=== PATIENT | female | born 1960 | race Caucasian/White ===

== ENCOUNTER → 2019-05-31 10:25 | Outpatient (BNVA) | payer SELFPAY | PROVIDERS: Family Provider Nurse Practitioner; PCP Nurse Practitioner; Visit Provider Nurse Practitioner | DX: F33.1 Major depressive disorder, recurrent, moderate (principal) | CPT/HCPCS: 99213 ==

== ENCOUNTER 2019-06-24 10:22 | Outpatient (CLI) | payer SELFPAY ==
[2019-06-24 11:04] LABS: Estmated Average Glucose 117; Hemoglobin A1C 5.7 % (4.0-6.0)
[2019-06-24 11:11] LABS: Alanine Aminotransferase 26 U/L (0-33); Alkaline Phosphatase 56 IU/L (35-105); Anion Gap 15.2 (5-19); Aspartate Amino Transferase 24 U/L (0-32); Blood Urea Nitrogen 19 mg/dL (6-20); Calcium 9.7 mg/dL (8.5-10.5); Carbon Dioxide 22 mmol/L (22-29); Chloride 102 mmol/L (98-107); Chol HDL Ratio 2.48 mg/dL (0.0-4.40); Cholesterol 144 mg/dL (0-200); Globulin 3.3 g/dL (1.3-4.6); Glomerular Filtration Rate 86.6 mL/min (90-130); Glucose 82 mg/dL (65-115); HDL Cholesterol 58 mg/dL (60-100); LDL Cholesterol Calculated 74 mg/dL (50-129); LDL HDL Ratio 1.28 RATIO (0.00-3.22); Potassium 4.2 mmol/L (3.5-5.1); Sodium 135 mmol/L (136-145); Total Bilirubin 0.3 mg/dL (0.15-1.2); Total Protein 7.3 g/dL (6.6-8.7); Triglycerides 59 mg/dL (0-150)
== END 2019-06-24 10:23 | disposition home or self-care (01) ==
LOC: ONCMED 10:26
PROVIDERS: Family Provider Nurse Practitioner; PCP Nurse Practitioner; Visit Provider Nurse Practitioner Family
DX: E11.9 Type 2 diabetes mellitus without complications (principal)
CPT/HCPCS: 36415; 80053; 80061; 83036

== ENCOUNTER → 2019-07-07 09:41 | Outpatient (BNVA) | payer SELFPAY | PROVIDERS: Family Provider Nurse Practitioner; PCP Nurse Practitioner; Visit Provider Nurse Practitioner Family | DX: R59.0 Localized enlarged lymph nodes (principal); J30.89 Other allergic rhinitis | CPT/HCPCS: 83615; 85025 ==

== ENCOUNTER 2019-07-29 15:39 | Outpatient (CLI) | payer SELFPAY ==
--- NOTE | 2019-07-29 16:30 | USR_ITS ---
PROCEDURE INFORMATION: Exam: US Soft Tissue Head and Neck, Soft Tissue Exam date and time: 07/29/2019 4:16 PM Age: 58 years old Clinical indication: Other: Neck swelling; Patient HX: Right submandibular swelling. ; Additional info: Left submandibular node / soft tissue swelling TECHNIQUE: Imaging protocol: Real-time ultrasound scan of the head and neck with image documentation. Exam focused on the soft tissue in the region of clinical concern. COMPARISON: US thyroid [id number] 08/07/2015 3:23 PM FINDINGS: Submandibular/Parotid glands: The right submandibular gland appears inhomogenous and hyperechoic measuring 1.9 cm in approximate thickness. The left submandibular gland appears slightly smaller measuring approximately 1.5 cm in thickness. Doppler flow present within the right submandibular gland. The veneer gluer did not interrogate the left submandibular gland with Doppler. Lymph nodes: No lymphadenopathy. Soft tissues: Unremarkable. No fluid collections. US/US soft tissue head neck [id number] IMPRESSION: 1. Limited exam with only partial visualization of the submandibular glands. 2. The right submandibular gland appears slightly larger than the left. This could be infectious or inflammatory. 3. No lymphadenopathy organized fluid collection identified.
== END 2019-07-29 15:40 | disposition home or self-care (01) ==
LOC: US 15:40
PROVIDERS: Family Provider Nurse Practitioner; PCP Nurse Practitioner; Visit Provider Nurse Practitioner Family
DX: R59.0 Localized enlarged lymph nodes (principal)
CPT/HCPCS: 76536

== ENCOUNTER → 2019-08-01 12:41 | Outpatient (BNVA) | payer SELFPAY | PROVIDERS: Family Provider Nurse Practitioner; PCP Nurse Practitioner; Referring Provider Nurse Practitioner Family; Visit Provider Specialist | DX: G43.711 Chronic migraine without aura, intractable, with status migrainosus (principal); I10 Essential (primary) hypertension; E66.9 Obesity, unspecified; Z68.41 Body mass index [BMI] 40.0-44.9, adult | CPT/HCPCS: 99204 ==

== ENCOUNTER 2019-08-01 13:59 | Outpatient (CLI) | payer SELFPAY ==
[2019-08-01 14:52] LABS: C Reactive Protein 1.8 mg/L (0.0-4.9)
[2019-08-01 16:01] LABS: Erythrocyte Sedimentation Rate 25 mm/hr (0-15)
== END 2019-08-01 14:00 | disposition home or self-care (01) ==
LOC: LAB 14:02
PROVIDERS: Family Provider Nurse Practitioner; PCP Nurse Practitioner Family; Visit Provider Specialist
DX: I99.8 Other disorder of circulatory system (principal)
CPT/HCPCS: 36415; 85651; 86140

== ENCOUNTER 2019-08-10 10:30 | Outpatient (CLI) | payer SELFPAY ==
--- NOTE | 2019-08-10 10:30 | CT_ITS ---
WS: [id number] CT NECK WITH CONTRAST HISTORY: enlarged submandibular nodes TECHNIQUE: Contiguous 5 mm axial images are performed through the neck with intravenous contrast. Sag ittal and coronal reformats are also submitted. All CT scans at [facility] use at least o ne of these dose optimization techniques: automated exposure control; mA and/or kV adjustment per pat ient size (includes targeted exams where dose is matched to clinical indication); or iterative recons truction. CONTRAST: CONTRAST: Omnipaque 300; 95 mL IV. DLP: 2584.9 mGycm COMPARISON: Soft tissue neck 07/29/2019 Nasopharynx, oropharynx, hypopharynx and larynx are unremarkable. No soft tissue masses or abnormal e nhancement. Torus tubarius and fossa of Rosenmuller and parapharyngeal fat are normal. Small benign-appearing cervical chain lymph nodes. No enlarged lymph nodes or adenopathy. Prior gland is negative. Parotid glands are very slightly prominent bilaterally with no adjacent infl ammation. Submandibular glands are normal size. There are a few small adjacent lymph nodes which are normal. No osseous abnormalities. Visualized portions of the skull base demonstrate no abnormalities. Orbits and globes are within norm al limits. No soft tissue masses. Visualized paranasal sinuses and mastoid air cells are normal. Lung apices are clear. CT/CT neck w con* [id number] IMPRESSION: 1. No submandibular or parotid gland mass. 2. No inflammatory changes involving the salivary glands. 3. No adenopathy. Benign-appearing cervical chain lymph nodes.
[2019-08-10] MEDS: iohexol 300 mg/mL 100 mL Btl IV (11:19)
== END 2019-08-10 10:31 | disposition home or self-care (01) ==
LOC: RADWPI 10:34
PROVIDERS: Family Provider Nurse Practitioner; PCP Nurse Practitioner Family; Visit Provider Nurse Practitioner Family
DX: R59.0 Localized enlarged lymph nodes (principal)
CPT/HCPCS: 70491; Q9967

== ENCOUNTER 2019-08-12 08:39 | Outpatient (CLI) | payer SELFPAY ==
--- NOTE | 2019-08-12 | CT_ITS ---
WS: [id number] CT HEAD TECHNIQUE: Noncontrast CT of the head obtained from the skullbase to the vertex. CLINICAL INFORMATION: BASELINE FOR CTA - HX OF TIA COMPARISON: MRI January 27, 2019 DLP: 732.[address] scans at [facility] use at least one of these dose optimization techniques: automat ed exposure control; mA and/or kV adjustment per patient size (includes targeted exams where dose is matched to clinical indication); or iterative reconstruction. FINDINGS: No evidence of intracranial hemorrhage or mass effect. Ventricular system and basal cisterns are almonte nt. Mild small vessel changes with mild parenchymal volume loss. No extra-axial fluid collections. No evidence of mass or mass effect. Normal ag-white differentiation. Paranasal sinuses and mastoid air cells are well aerated. .Normal visualized soft tissues. CT/CT head wo con* [id number] IMPRESSION: 1. No evidence of intracranial hemorrhage or mass effect. 2. Mild small vessel changes with mild parenchymal volume loss. 3. No acute intracranial findings.
--- NOTE | 2019-08-12 08:30 | CT_ITS ---
WS: [id number] CTA HEAD AND NECK TECHNIQUE: Contrast enhanced CTA of the head and neck with coronal and sagittal reformatted images an d maximum intensity projection (MIP) images. NASCET criteria utilized. CLINICAL INFORMATION: TIA COMPARISON: None. DLP: 2205.[address] scans at [facility] use at least one of these dose optimization techniques: automat ed exposure control; mA and/or kV adjustment per patient size (includes targeted exams where dose is matched to clinical indication); or iterative reconstruction. FINDINGS: RIGHT: Right common carotid artery is patent. No significant right ICA stenosis. Minimal atheromatous plaque right carotid bulb. No significant right ICA stenosis. Right ICA is patent to the skull base. LEFT: Left common carotid artery is patent. No significant left ICA stenosis. Left ICA is patent to t he skull base. INTRACRANIAL CTA: Both vertebral arteries are patent. Basilar artery is patent. Persistent left FITTER ARMAMENT. Normal vascu larity to the FITTER ARMAMENT territory bilaterally. Both ICAs are patent at the skull base. Normal vascularity t o the DREW and MCA territories bilaterally. No evidence of high-grade proximal stenosis or aneurysm. CT/CT angio headneck* [id number] IMPRESSION: 1. No significant ICA stenosis bilaterally. Both ICAs are patent to the skull base. 2. No evidence of intracranial stenosis or aneurysm. 3. Persistent left FITTER ARMAMENT. 4. Paranasal sinuses and mastoid air cells are well aerated.
--- NOTE | 2019-08-12 09:30 | USCV_ITS ---
Anjelica Neely Age: 58 Gender: F : 1960 Exam Date: 08/12/2019 09:15 Ordering Phys: [place] Sellers MD Technologist: Carmen Ortiz [place] [facility] [place]IA BP: / HR: 57 Rhythm: Sinus Technical Quality: Suboptimal MEASUREMENTS (Male / Female) Normal Values 2D ECHO LV Diastolic Diameter PLAX 4.9 cm 4.2 - 5.9 / 3.9 - 5.3 cm LV Systolic Diameter PLAX 2.6 cm IVS Diastolic Thickness 0.7 cm 0.6 - 1.0 / 0.6 - 0.9 cm IVS Systolic Thickness 1.3 cm LVPW Diastolic Thickness 0.8 cm 0.6 - 1.0 / 0.6 - 0.9 cm LVPW Systolic Thickness 1.4 cm LVOT Diameter 2.0 cm LV Ejection Fraction 2D Teich 77.6 % LV Ejection Fraction MOD 2C 58.8 % LV Ejection Fraction 2C AL 59.3 % LA Diameter 3.7 cm LA Width 3.3 cm LA Height 4.9 cm RA Width 2.9 cm RA Height 4.3 cm Aorta at Sinotubular Diameter 2.8 cm M-MODE LV Diastolic Diameter MM 5.3 cm 4.2 - 5.9 / 3.9 - 5.3 cm LV Systolic Diameter MM 3.0 cm LV Ejection Fraction MM Teich 73.3 % IVS Diastolic Thickness MM 0.6 cm 0.6 - 1.0 / 0.6 - 0.9 cm IVS Systolic Thickness MM 1.3 cm LVPW Diastolic Thickness MM 0.8 cm 0.6 - 1.0 / 0.6 - 0.9 cm LVPW Systolic Thickness MM 1.3 cm Aortic Annulus Diameter 2.2 cm LA Ao Ratio MM 1.7 MV E Point Septal Separation 0.1 cm DOPPLER AV Peak Velocity 139.0 cm/s LVOT Peak Velocity 90.0 cm/s AV Area Cont Eq vti 2.0 cm squared AV Area Cont Eq pk 2.1 cm squared MV Area PHT 4.0 cm squared Mitral E to A Ratio 0.9 MV E' Velocity 9.0 cm/s Mitral E to MV E' Ratio 9.0 Mitral E to LV E' Lateral Ratio 10.3 Mitral E to LV E' Septal Ratio 8.1 TV Peak E Velocity 53.0 cm/s Right Atrial Pressure 3.0 mmHg PV Peak Velocity 90.0 cm/s RV Acceleration Time 0.1 s RV Ejection Time 0.4 s RV AcT/ET 0.4 FINDINGS Left Ventricle Normal left ventricular size, systolic function and wall thickness, with no regional wall motion abnormalities. Grade I/IV diastolic dysfunction (abnormal relaxation filling pattern), normal to mildly elevated filling pressures. Left ventricular ejection fraction is estimated at 60 %. Right Ventricle Normal right ventricular size and systolic function. Normal right ventricular systolic pressure. Right Atrium The right atrium is normal in size. Left Atrium The left atrium is normal in size. Mitral Valve Structurally normal mitral valve. Mild mitral valve regurgitation. Aortic Valve Structurally normal aortic valve without significant sclerosis or stenosis. There is no aortic regurgitation. Tricuspid Valve Structurally normal tricuspid valve. Trace tricuspid valve regurgitation. Pulmonic Valve Pulmonic valve not well visualized. Pericardium Normal pericardium without effusion. Aorta Normal ascending aorta dimension. CONCLUSIONS Normal left ventricular size, systolic function and wall thickness, with no regional wall motion abnormalities. Grade I/IV diastolic dysfunction (abnormal relaxation filling pattern), normal to mildly elevated filling pressures. Left ventricular ejection fraction is estimated at 60 %. Structurally normal mitral valve. Mild mitral valve regurgitation. There are no prior echocardiogram studies to compare. Dr. Ricardo Jessica MD (Electronically Signed) Final Date: 12 August 2019 11:49 S
[2019-08-12] MEDS: iohexol 350 mg/mL 100 mL Btl IV (10:12)
== END 2019-08-12 08:40 | disposition home or self-care (01) ==
LOC: CT 08:39
PROVIDERS: Family Provider Nurse Practitioner; PCP Nurse Practitioner Family; Visit Provider Specialist
DX: I99.8 Other disorder of circulatory system (principal); G45.8 Other transient cerebral ischemic attacks and related syndromes; I34.0 Nonrheumatic mitral (valve) insufficiency
CPT/HCPCS: 70450; 70496; 70498; 93306

== ENCOUNTER → 2019-09-30 10:24 | Outpatient (BNVA) | payer SELFPAY | PROVIDERS: Family Provider Nurse Practitioner; PCP Nurse Practitioner Family; Visit Provider Nurse Practitioner | DX: E11.9 Type 2 diabetes mellitus without complications (principal); F33.1 Major depressive disorder, recurrent, moderate; M19.90 Unspecified osteoarthritis, unspecified site | CPT/HCPCS: 80053; 80061; 81003; 82044; 82607; 83036; 83735; 84443 ==

== ENCOUNTER → 2019-12-22 10:20 | Outpatient (BNVA) | payer SELFPAY | PROVIDERS: Family Provider Nurse Practitioner; PCP Nurse Practitioner Family; Visit Provider Nurse Practitioner | DX: I10 Essential (primary) hypertension (principal) | CPT/HCPCS: 80053 ==

== ENCOUNTER 2019-12-28 09:44 | Outpatient (CLI) | payer SELFPAY ==
--- NOTE | 2019-12-28 09:30 | XRR_ITS ---
PROCEDURE INFORMATION: Exam: XR Abdomen, 1 View Exam date and time: 12/28/2019 9:50 AM Age: 59 years old Clinical indication: Stone TECHNIQUE: Imaging protocol: XR of the abdomen. Views: Frontal supine view of the abdomen. 1 View. COMPARISON: CR XR KUB [id number] 12/30/2018 9:36 AM FINDINGS: Gastrointestinal tract: No dilated gas-filled loops of bowel. Moderate amount of stool throughout the colon. Organs: No radiopaque renal or ureteral calculi identified. Prior cholecystectomy. Vasculature: Multiple phleboliths in the pelvis. Bones/joints: Multilevel facet arthropathy in the lower lumbar spine. XR/XR KUB [id number] IMPRESSION: No radiopaque renal or ureteral calculus identified.
== END 2019-12-28 09:45 | disposition home or self-care (01) ==
LOC: RAD 09:48
PROVIDERS: PCP Nurse Practitioner Family; Visit Provider Urology
DX: N20.0 Calculus of kidney (principal)
CPT/HCPCS: 74018; 81001

== ENCOUNTER 2020-01-18 17:55 | Emergency (ER) | payer OTHER, SELFPAY ==
[2020-01-18 18:04] VITALS: BP 144/75; PULSE 98; RESP 18; TEMP 38.3; O2SAT 95; BMI 39.6
--- NOTE | 2020-01-18 18:27 | XRR_ITS ---
PROCEDURE INFORMATION: Exam: XR Chest, 1 View Exam date and time: 01/18/2020 7:01 PM Age: 59 years old Clinical indication: Cough and hyperventilation and shortness of breath; Prior surgery; Surgery type: Lumpectomy; Patient HX: SOB, cough, cp x 3 days; Additional info: Fever TECHNIQUE: Imaging protocol: XR of the chest Views: 1 view. COMPARISON: CR Chest 1 [place] [id number] 07/31/2017 1:00 PM FINDINGS: Tubes, catheters and devices: Surgical suture anchor right shoulder. Lungs: Minor lingular scarring or atelectasis. Pleural space: Unremarkable. No pleural effusion. No pneumothorax. Heart/Mediastinum: Stable heart size. Bones/joints: Degenerative change of the spine. Intraperitoneal space: Cholecystectomy clips right upper quadrant. XR/XR chest 1V portable [id number] IMPRESSION: Minor lingular scarring or atelectasis.
[2020-01-18] MEDS: acetaminophen 500 mg Tablet 1000 MG PO (18:41)
[2020-01-18 19:31] LABS: Basophils # 0.1 10^3/uL (0.0-0.1); Basophils % 0.4 %; Hematocrit 38.2 % (37.0-47.0); Hemoglobin 12.3 g/dL (11.5-15.3); Lymphocytes # 1.3 10^3/uL (0.8-4.8); Lymphocytes % 8.1 %; Mean Corpuscular HGB Conc 32.2 g/dL (30.0-36.0); Mean Corpuscular Hemoglobin 29.4 pg (28.0-34.0); Mean Corpuscular Volume 91.4 fL (81-99); Mean Platelet Volume 12.9 fL (7.4-10.4); Monocytes # 1.2 10^3/uL (0.2-0.9); Monocytes % 7.1 %; Neutrophils # 13.74 10^3/uL (1.8-7.7); Neutrophils % 83.7 %; Nucleated Red Blood Cells % 0 %; Platelet Count 228 10^3/cmm (130-400); Red Blood Count 4.18 10^6/uL (4.1-5.3); White Blood Count 16.4 10^3/uL (4.0-10.0)
[2020-01-18 19:44] LABS: Alanine Aminotransferase 17 U/L (0-33); Albumin Level 3.9 g/dL (3.5-5.2); Alkaline Phosphatase 68 IU/L (35-105); Anion Gap 16.5 (5-19); Aspartate Amino Transferase 15 U/L (0-32); Blood Urea Nitrogen 16 mg/dL (6-20); Calcium 8.9 mg/dL (8.5-10.5); Carbon Dioxide 21 mmol/L (22-29); Chloride 100 mmol/L (98-107); Globulin 3.1 g/dL (1.3-4.6); Glomerular Filtration Rate 64.5 mL/min (90-130); Glucose 198 mg/dL (65-115); Osmolality Calculated 285 mOsm/kg (285-295); Potassium 3.5 mmol/L (3.5-5.1); Sodium 134 mmol/L (136-145); Total Bilirubin 0.3 mg/dL (0.15-1.2)
[2020-01-18 19:46] VITALS: BP 135/68; PULSE 88; RESP 20; TEMP 39.5; O2SAT 94
[2020-01-18 20:04] LABS: Rapid Strep A Test Positive (Negative)
[2020-01-18] MEDS: ketorolac 30 mg/mL INJ 15 MG IVP (20:32)
--- NOTE | 2020-01-18 20:32 | CTR_ITS ---
PROCEDURE INFORMATION: Exam: CT Neck With Contrast Exam date and time: 01/18/2020 8:55 PM Age: 59 years old Clinical indication: Throat pain; Additional info: Eval for pharyngeal abscess TECHNIQUE: Imaging protocol: Computed tomography images of the neck with intravenous contrast. Radiation optimization: All CT scans at this facility use at least one of these dose optimization techniques: automated exposure control; mA and/or kV adjustment per patient size (includes targeted exams where dose is matched to clinical indication); or iterative reconstruction. Contrast material: OMNI 300; Contrast volume: 95 ml; Contrast route: INTRAVENOUS (IV); COMPARISON: CT neck w con* [id number] 08/10/2019 11:07 AM RADIATION DOSE METRICS: Total DLP (mGy-cm): 777.95 FINDINGS: Nasopharynx: Unremarkable. Oropharynx: Unremarkable. No significant tonsillar enlargement. Hypopharynx: Unremarkable. Larynx: Unremarkable. Normal epiglottis. Retropharyngeal space: Unremarkable. Submandibular/Parotid glands: Normal. Glands are normal in size. Thyroid: Normal. No enlarged or calcified nodules. Lymph nodes: Enlarged edematous tonsils bilaterally with scattered prominent lymph nodes throughout the neck suggestive of an infectious process without abscess. Trachea: Visualized trachea is unremarkable. Lungs: Unremarkable as visualized. Bones/joints: Unremarkable. No acute fracture. Soft tissues: Unremarkable. No significant soft tissue swelling. CT/CT neck w con* [id number] IMPRESSION: Enlarged edematous tonsils bilaterally with scattered prominent lymph nodes throughout the neck suggestive of an infectious process without abscess. Radiation Dose CTDIVOL = (mGy): DLP = 777.95 (mGy-cm)
[2020-01-18] MEDS: piperacillin-tazobactam 3.375 GM in sodium chloride 0.9% (plus) 50 ML IV (20:33)
[2020-01-18 20:34] VITALS: BP 138/69; PULSE 80; RESP 18; O2SAT 95
--- NOTE | 2020-01-18 20:51 | W.ED.FEVER ---
HPI - Fever General: Chief Complaint: Fever Stated Complaint: FEVER;BODY ACHES Time Seen by Provider: 01/18/20 18:19 History of Present Illness: HPI Narrative: This patient is a 59-year-old female who presents today with fever and sore throat. She has had some cough and runny nose as well. This started Thursday evening and was severe by yesterday morning. She was seen at the clinic and had a COVID test done there. She said they told her that her white blood cell count was high and they sent her to the ER. She is having discomfort with swallowing but not difficulty. She feels pretty awful in general. She has no known exposures to COVID. MD elicited complaint: fever Pertinent past history: diabetes Onset (ago): day(s) (-05/05) Exacerbating factors: swallowing Relieving factors: nothing Associated symptoms: Reports chills, cough, diarrhea, nasal congestion, rhinorrhea and sore throat; Deny flank pain, chest pain or headache(s) Treatments prior to arrival fever: acetaminophen (None today) Review of Systems General: Reports: 10 or more systems reviewed and unremarkable except in HPI and below Const: Reports: fever(s), chills, body aches, fatigue and malaise Eyes: Denies: change in vision ENMT: Reports: throat pain, odynophagia, hoarseness and nasal congestion Card: Denies: chest pain or swelling of feet/ankles Resp: Reports: non-productive cough; Denies: dyspnea or productive cough GI: Reports: diarrhea : Denies: flank pain or difficulty voiding Musc: Denies: neck pain or back pain Skin/Breast: Denies: rash Neuro: Denies: headache(s), numbness in extremities or weakness in extremities Benjy/Lymph: Denies: easy bruising or easy bleeding PFSH ED PFSH: Medical History Atrophy of vulva GERD (gastroesophageal reflux disease) History of kidney stones Hyperlipidemia Hypertension Insomnia Major depressive disorder, recurrent, moderate Osteoarthritis Renal calculi History of a large stone requiring ESWL but with complete resolution eventually. Encourage dietary modification for stone risk reduction. Surgical History H/O lateral meniscus repair of right knee H/O repair of left rotator cuff H/O repair of right rotator cuff History of cholecystectomy History of left breast biopsy History of lithotripsy History of partial hysterectomy without BSO History of tubal ligation Family History Father Heart disease Mother Osteoarthritis Other CAD (coronary artery disease) Cancer Diabetes Hypertension Osteoporosis Rheumatoid arthritis Denies family history of Stroke Social History Smoking and tobacco status: never smoked Second hand smoke exposure: No Smoking risk assessment/counseling performed?: No Alcohol intake: never Desire information about alcohol rehabilitation?: No Counseling given: No Desire information about substance/drug rehabilitation?: No Counseling given: No Adopted: No Caregiver/support person: No Lives independently: Yes Household members: spouse Marital status: service: No Current occupational status: disabled History of recent travel: No Current gender identity: Female Physical Exam Const: COMMON NORMALS: patient oriented x3, no limitations and alert GENERAL APPEARANCE: cooperative and ill appearing HENMT: HEAD & SCALP: normal to inspection FACE & SINUS: normal facial exam THROAT: posterior oropharynx abnormal edema, erythema and exudates Eye: GENERAL EYE: appearance normal, both eyes and all related structures Neck/C-Spine: COMMON NORMALS: supple, no meningeal signs and no JVD Chest: COMMONS NORMALS: normal inspection of the chest Resp: COMMON NORMALS: normal respiratory effort, No use of accessory muscles and clear to auscultation bilaterally AUSCULTATION: clear to auscultation bilaterally Cardio: COMMON NORMALS: no JVD, regular rate, regular rhythm and No murmurs present (Cardio) RATE: regular rate RHYTHM: regular rhythm GI: COMMON NORMALS: Normal to inspection, nondistended, normoactive bowel sounds present, Soft to palpation and non-tender INSPECTION: Yes normal to inspection AUSCULTATION: Yes normoactive bowel sounds PALPATION: Yes Soft to palpation Back/Pelvis: COMMON NORMALS: thoracic and lumbar spine normal to inspection Extremity: COMMON NORMALS: normal to inspection Neuro: COMMON NORMALS: patient oriented x3, moves all extremities, no focal motor deficits and no sensory deficits noted SENSORIUM/ORIENTATION: Yes alert MENINGEAL SIGNS: Yes no meningeal signs Psych: COMMON NORMALS: mental status grossly normal, cooperative and normal affect Skin: COMMON NORMALS: no rashes or lesions noted and turgor normal GENERAL SKIN EXAM: no rashes or lesions noted and turgor normal Course ED course: Patient's rapid strep was positive. Her throat certainly looks like the source of her fever on a physical exam. Because of her fever and high white count I thought it would be prudent to do a CT of her neck to make sure there was no abscess. CT did show inflammation but no abscess. Patient was given IV antibiotics, IV fluid, IV Toradol. She was discharged home with pain medication and Augmentin. She will follow-up with her primary care doctor and return to the ED if worse anyway. Vital Signs: Vital signs: Vital Signs Temperature 103.1 F H 01/18/20 19:46 Pulse Rate 69 01/18/20 22:06 Respiratory Rate 16 01/18/20 22:06 Blood Pressure 127/68 01/18/20 22:06 Pulse Oximetry 94 01/18/20 22:06 MDM - Fever Lab Data: Labs: Lab Results 01/18/20 01/18/20 01/18/20 Range/Units 18:49 18:49 18:49 WBC 16.4 H (4.0-10.0) 10^3/ uL RBC 4.18 (4.1-5.3) 10^6/u L Hgb 12.3 (11.5-15.3) g/dL Hct 38.2 (37.0-47.0) % MCV 91.4 (81-99) fL MCH 29.4 (28.0-34.0) pg MCHC 32.2 (30.0-36.0) g/dL RDW 13.0 (12.1-15.1) % Plt Count 228 (130-400) 10^3/c mm MPV 12.9 H (7.4-10.4) fL Neut % (Auto) 83.7 % Lymph % (Auto) 8.1 % [place] % (Auto) 7.1 % Eos % (Auto) 0.0 % Baso % (Auto) 0.4 % Neut # (Auto) 13.74 H (1.8-7.7) 10^3/u L Lymph # (Auto) 1.3 (0.8-4.8) 10^3/u L Bladen # (Auto) 1.2 H (0.2-0.9) 10^3/u L Eos # (Auto) 0.0 (0.0-0.8) 10^3/u L Baso # (Auto) 0.1 (0.0-0.1) 10^3/u L Nucleated RBC % (a uto) 0 % Nucleated RBCs # 0.0 /100WBC Sodium 134 L (136-145) mmol/L Potassium 3.5 (3.5-5.1) mmol/L Chloride 100 (98-107) mmol/L Carbon Dioxide 21 L (22-29) mmol/L Anion Gap 16.5 (5-19) BUN 16 (6-20) mg/dL Creatinine 0.9 (0.5-0.9) mg/dL GFR Calculation 64.5 L (90-130) mL/min Glucose 198 H (65-115) mg/dL Calculated Osmolal ity 285 (285-295) mOsm/k g Calcium 8.9 (8.5-10.5) mg/dL Total Bilirubin 0.3 (0.15-1.2) mg/dL AST 15 (0-32) U/L ALT 17 (0-33) U/L Alkaline Phosphata se 68 (35-105) IU/L Total Protein 7.0 (6.6-8.7) g/dL Albumin 3.9 (3.5-5.2) g/dL Globulin 3.1 (1.3-4.6) g/dL Group A Strep Rapi d Positive H (Negative) Discharge Plan Discharge Patient Disposition: Home Clinical Impression: Strep pharyngitis Condition: Stable Prescriptions: New Augmentin 875-125 mg tablet 1 tab PO BID Qty: 20 RF: 0 hydrocodone-acetaminophen 7.5-325 mg/15 mL solution 15 ml PO Q6H PRN (Reason: pain) Qty: 120 RF: 0 No Action azelastine 137 mcg (0.1 %) aerosol,spray 2 spray INTRANASAL BID RF: 0 cetirizine 10 mg tablet 10 mg PO DAILY RF: 0 trazodone 50 mg tablet 50 mg PO .at bedtime Qty: 30 RF: 3 paroxetine HCl 20 mg tablet 20 mg PO .8PM Qty: 30 RF: 3 (DME) pen needle, diabetic 33 gauge x 5/32 needle See Rx Instructions .ROUTE .MEDSUPPLY Qty: 100 RF: 5 atorvastatin [Lipitor] 20 mg tablet 20 mg PO DAILY Qty: 30 RF: 2 diltiazem HCl 60 mg tablet 60 mg PO .every 12 hours Qty: 60 RF: 2 [place] 5 mcg/dose (250 mcg/mL) 1.2 mL pen injector 5 mcg SUBCUT BID Qty: 1.2 RF: 2 lisinopril 20 mg tablet 20 mg PO DAILY Qty: 30 RF: 2 meloxicam 15 mg tablet 15 mg PO DAILY Qty: 30 RF: 2 sucralfate [Carafate] 1 gram tablet 1 gm PO BID PRN (Reason: acid reflux) Qty: 60 RF: 2 topiramate [Topamax] 100 mg tablet 100 mg PO Q12H Qty: 60 RF: 2 montelukast [Singulair] 10 mg tablet 10 mg PO DAILY Qty: 30 RF: 2 albuterol sulfate [ProAir HFA] 90 mcg/actuation HFA aerosol inhaler 2 puff INHALATION Q4H PRN (Reason: shortness of breath or wheezing) 30 Days Qty: 6.7 RF: 2 aspirin 81 mg tablet,delayed release (DR/EC) 81 mg PO DAILY RF: 0 Vitamin B-12 1,000 mcg Tablet 1,000 mcg PO DAILY RF: 0 fluticasone propionate 50 mcg/actuation [place],Suspension See Rx Instructions .ROUTE .COMPLEX RF: 0 Multiple Vitamin, Womens Tablet 1 tab PO DAILY RF: 0 Vitamin D3 25 mcg (1,000 unit) Tablet 25 mcg PO DAILY RF: 0 levocetirizine 5 mg Tablet See Rx Instructions .ROUTE .COMPLEX RF: 0 Fish Oil 1,000 mg (120 mg-180 mg) Capsule 1 cap PO DAILY RF: 0 epinephrine See Rx Instructions .ROUTE .COMPLEX RF: 0 vitamin E 1 cap PO DAILY RF: 0 Discharge Orders: Discharge Order (Routine); Ordered 01/18/20 Ordered By: Maddie Bhatti Referrals: Mary Silveira, HIGHBALLER-C [Primary Care Provider] - Discharge Diet: Usual diet Discharge Activity: Resume usual activity Patient Instructions: Strep Throat (ED) Activity Restrictions/Additional Instructions: Make sure to drink plenty of fluids. You may use ibuprofen or acetaminophen for pain. You may also use the hydrocodone elixir that was prescribed today. Fill the antibiotic that was prescribed here from the ED and take that until gone. Return to the ER or see your doctor immediately for any worsening of your condition. Discharge Date/Time: 01/18/20 22:18 Coding Level of Care Code ED Senior Administrative Associate for Ashlee Fwbela Exam Comprehensive
[2020-01-18 22:03] VITALS: RESP 18
[2020-01-18] MEDS: ondansetron 2 mg/ML SDV 2 mL 4 MG IVP (22:03)
[2020-01-18] MEDS: morphine 4 mg/mL SDV 1 mL IVP (22:03)
[2020-01-18 22:06] VITALS: BP 127/68; PULSE 69; RESP 16; O2SAT 94
== END 2020-01-18 22:18 | disposition home or self-care (01) ==
PROVIDERS: Emergency Provider Emergency Medicine; PCP Nurse Practitioner
DX: J02.0 Streptococcal pharyngitis (principal); U07.1 COVID-19; Z79.82 Long term (current) use of aspirin; E78.5 Hyperlipidemia, unspecified; I10 Essential (primary) hypertension
CPT/HCPCS: 12345; 36415; 70491; 71045; 80053; 85025; 87635; 87880; 96365; 96375; 99282; 99284; J1885; J2270; J2405; J2543; Q9967

== ENCOUNTER → 2020-01-26 09:17 | Outpatient (BNVA) | payer SELFPAY | PROVIDERS: PCP Nurse Practitioner; Visit Provider Nurse Practitioner | DX: J02.0 Streptococcal pharyngitis (principal) | CPT/HCPCS: 85025 ==

== ENCOUNTER → 2020-02-02 11:47 | Outpatient (BNVA) | payer SELFPAY | PROVIDERS: PCP Nurse Practitioner; Visit Provider Nurse Practitioner | DX: J02.0 Streptococcal pharyngitis (principal) | CPT/HCPCS: 85025 ==

== ENCOUNTER 2020-02-15 13:44 | Outpatient (CLI) | payer SELFPAY ==
--- NOTE | 2020-02-15 14:30 | MM_ITS ---
WS: [id number] SCREENING DIGITAL MAMMOGRAM WITH CAD HISTORY: Screening exam. COMPARISON: 07/08/2018 and 02/10/2018 Bilateral CC and MLO views submitted. Computer aided detection analyzed. Breast composition: There are scattered areas of fibroglandular density. No suspicious masses, microc alcifications or architectural distortion. MM/[place] [id number] IMPRESSION: BI-RADS: 1-Negative FOLLOW UP: 1 Year Follow-up
== END 2020-02-15 13:45 | disposition home or self-care (01) ==
LOC: RADSHAW 13:49
PROVIDERS: PCP Nurse Practitioner; Visit Provider Nurse Practitioner
DX: Z12.31 Encounter for screening mammogram for malignant neoplasm of breast (principal)
CPT/HCPCS: 77067

== ENCOUNTER 2020-03-13 13:10 | Emergency (ER) | payer SELFPAY ==
[2020-03-13 13:17] VITALS: BP 141/82; PULSE 100; RESP 20; TEMP 37.9; O2SAT 100; BMI 38.9
--- NOTE | 2020-03-13 14:05 | ECG_ITS ---
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 Measurements Intervals [place] Rate: 103 P: 34 HI: 173 QRS: 64 QRSD: 96 T: -3 QT: 309 QTc: 405 Interpretive Statements SINUS TACHYCARDIA WITH OCCASIONAL VENTRICULAR PREMATURE COMPLEXES NONSPECIFIC ST & T-WAVE ABNORMALITY Compared to ECG 01/14/2019 17:41:03 Ventricular premature complex(es) now present T-wave abnormality now present Sinus rhythm no longer present Myocardial infarct finding no longer present Electronically Signed On 03-13-2020 19:19:51 SPEECH LANGUAGE PATHOLOGY ASSISTANT by Jose Guillen M.D. [email or web address]
--- NOTE | 2020-03-13 14:06 | ED_ITS ---
Documented by User: Dick Carpio DO 03/16/20 06:16 HPI - Chest Pain General: Chief Complaint: Chest Pain Stated Complaint: CP Time Seen by Provider: 03/13/20 14:00 History of Present Illness: HPI narrative: 59-year-old female presents with a complaint of chest pain and shortness of breath cough and fever. She began getting cough and fever along with shortness of breath last night. She had a telehealth visit today with her primary care provider and was instructed to go to the emergency room. MD complaint: chest pain Associated symptoms: Deny abdominal pain, dyspnea, fever(s), nausea or vomiting Review of Systems Const: Denies: fever(s), chills, body aches, change in appetite, fatigue or malaise ENMT: Denies: throat pain, ear or mastoid pain, nasal discharge or nasal congestion Card: Denies: chest pain, edema, dyspnea on exertion or orthopnea Resp: Denies: dyspnea, productive cough or non-productive cough GI: Denies: abdominal pain, nausea, vomiting, hematemesis, coffee ground emesis, diarrhea, constipation, bloating, hematochezia or melena : Denies: flank pain, difficulty voiding, dysuria, urinary frequency or urinary urgency Skin/Breast: Denies: rash or pruritus PFSH ED PFSH: Medical History (Updated 03/13/20 @ 19:28 by Shantell Packer) Atrophy of vulva GERD (gastroesophageal reflux disease) History of kidney stones Hyperlipidemia Hypertension Insomnia Major depressive disorder, recurrent, moderate Osteoarthritis Renal calculi History of a large stone requiring ESWL but with complete resolution eventually. Encourage dietary modification for stone risk reduction. Surgical History H/O lateral meniscus repair of right knee H/O repair of left rotator cuff H/O repair of right rotator cuff History of cholecystectomy History of left breast biopsy History of lithotripsy History of partial hysterectomy without BSO History of tubal ligation Family History Father Heart disease Mother Osteoarthritis Other CAD (coronary artery disease) Cancer Diabetes Hypertension Osteoporosis Rheumatoid arthritis Denies family history of Stroke Social History Smoking and tobacco status: never smoked Second hand smoke exposure: No Smoking risk assessment/counseling performed?: No Alcohol intake: never Desire information about alcohol rehabilitation?: No Counseling given: No Desire information about substance/drug rehabilitation?: No Counseling given: No Adopted: No Caregiver/support person: No Lives independently: Yes Household members: spouse Marital status: service: No Current occupational status: disabled History of recent travel: No Current gender identity: Female Physical Exam Const: COMMON NORMALS: no acute distress GENERAL APPEARANCE: cooperative and comfortable ORIENTATION/CONSCIOUSNESS: Yes awake, Yes oriented to person, Yes oriented to place and Yes oriented to time HENMT: COMMON NORMALS: normocephalic, atraumatic and hearing grossly normal bilaterally HEAD & SCALP: normocephalic and atraumatic THROAT: posterior oropharynx abnormal erythema Eye: COMMON NORMALS: Equal, round and reactive pupils present, EOMs intact bilaterally, conjunctivae normal and no scleral icterus CONJUNCTIVA: Yes conjunctivae normal PUPIL: Yes Equal, round and reactive pupils present Neck/C-Spine: COMMON NORMALS: full ROM, no lymphadenopathy, supple and no JVD Lymph: LYMPHATIC: no lymphadenopathy noted and no lymphedema noted OTHER: No submandibular lymphadenopathy Resp: COMMON NORMALS: normal respiratory effort, No retractions, No use of acc essory muscles and clear to auscultation bilaterally AUSCULTATION: clear to auscultation bilaterally Cardio: COMMON NORMALS: no JVD, regular rate, regular rhythm and No murmurs present (Cardio) RATE: regular rate RHYTHM: regular rhythm GI: COMMON NORMALS: Soft to palpation and No hepatosplenomegaly present AUSCULTATION: Yes normoactive bowel sounds PALPATION: Yes Soft to palpation, No Tenderness to palpation present (GI), No Guarding due to palpation present (GI) and Yes No hepatosplenomegaly present Extremity: COMMON NORMALS: normal to inspection, capillary refill normal, no clubbing, cyanosis or edema, no calf tenderness and no pedal edema Neuro: SENSORIUM/ORIENTATION: Yes oriented to person, Yes oriented to place and Yes oriented to time Skin: COMMON NORMALS: no rashes or lesions noted GENERAL SKIN EXAM: no rashes or lesions noted Course Vital Signs: Vital signs: Vital Signs Temperature 100.2 F H 03/13/20 13:17 Pulse Rate 99 03/13/20 19:35 Respiratory Rate 20 H 03/13/20 13:17 Blood Pressure 141/82 03/13/20 13:17 Pulse Oximetry 96 03/13/20 19:35 MDM - Chest Pain MDM Narrative: Medical decision making narrative: Care turned over to Dr. Sherwood at change of shift Lab Data: Labs: Lab Results 03/13/20 03/13/20 03/13/20 Range/Units 15:40 15:40 15:40 WBC 15.9 H (4.0-10.0) 10^3/ uL RBC 4.17 (4.1-5.3) 10^6/u L Hgb 12.1 (11.5-15.3) g/dL Hct 38.0 (37.0-47.0) % MCV 91.1 (81-99) fL MCH 29.0 (28.0-34.0) pg MCHC 31.8 (30.0-36.0) g/dL RDW 13.2 (12.1-15.1) % Plt Count 308 (130-400) 10^3/c mm MPV 12.3 H (7.4-10.4) fL Neut % (Auto) 80.9 % Lymph % (Auto) 8.6 % [place] % (Auto) 9.2 % Eos % (Auto) 0.3 % Baso % (Auto) 0.6 % Neut # (Auto) 12.86 H (1.8-7.7) 10^3/u L Lymph # (Auto) 1.4 (0.8-4.8) 10^3/u L [place] # (Auto) 1.5 H (0.2-0.9) 10^3/u L Eos # (Auto) 0.1 (0.0-0.8) 10^3/u L Baso # (Auto) 0.1 (0.0-0.1) 10^3/u L Nucleated RBC % (a uto) 0 % Nucleated RBCs # 0.0 /100WBC Fibrinogen (174-498) mg/dL D-Dimer (0-0.59) ug/mIFE U Sodium 140 (136-145) mmol/L Potassium 3.5 (3.5-5.1) mmol/L Chloride 105 (98-107) mmol/L Carbon Dioxide 23 (22-29) mmol/L Anion Gap 15.5 (5-19) BUN 11 (6-20) mg/dL Creatinine 0.8 (0.5-0.9) mg/dL GFR Calculation 73.9 L (90-130) mL/min Glucose 105 (65-115) mg/dL Calculated Osmolal ity 290 (285-295) mOsm/k g Lactic Acid Calcium 9.1 (8.5-10.5) mg/dL Ferritin 100 (15-150) ng/mL Total Bilirubin 0.2 (0.15-1.2) mg/dL AST 19 (0-32) U/L ALT 18 (0-33) U/L Alkaline Phosphata se 87 (35-105) IU/L Lactate Dehydrogen ase 195 (135-214) U/L Troponin T Baselin e 6 (0-10) ng/L Troponin T 120 Min [place] (0-10) ng/L Delta Troponin T (0-10) ABS# C-Reactive Protein 23.1 H (0.0-4.9) mg/L Total Protein 7.3 (6.6-8.7) g/dL Albumin 4.0 (3.5-5.2) g/dL Globulin 3.3 (1.3-4.6) g/dL Influenza Type A A g (Negative) Influenza Type B A g (Negative) SARS-CoV-2 Ag (Rap id) (Negative) Group A Strep Rapi d (Negative) 03/13/20 03/13/20 03/13/20 Range/Units 15:40 15:42 15:46 WBC (4.0-10.0) 10^3/ uL RBC (4.1-5.3) 10^6/u L Hgb (11.5-15.3) g/dL Hct (37.0-47.0) % MCV (81-99) fL MCH (28.0-34.0) pg MCHC (30.0-36.0) g/dL RDW (12.1-15.1) % Plt Count (130-400) 10^3/c mm MPV (7.4-10.4) fL Neut % (Auto) % Lymph % (Auto) % [place] % (Auto) % Eos % (Auto) % Baso % (Auto) % Neut # (Auto) (1.8-7.7) 10^3/u L Lymph # (Auto) (0.8-4.8) 10^3/u L [place] # (Auto) (0.2-0.9) 10^3/u L Eos # (Auto) (0.0-0.8) 10^3/u L Baso # (Auto) (0.0-0.1) 10^3/u L Nucleated RBC % (a uto) % Nucleated RBCs # /100WBC Fibrinogen 415 (174-498) mg/dL D-Dimer 1.52 H (0-0.59) ug/mIFE U Sodium (136-145) mmol/L Potassium (3.5-5.1) mmol/L Chloride (98-107) mmol/L Carbon Dioxide (22-29) mmol/L Anion Gap (5-19) BUN (6-20) mg/dL Creatinine (0.5-0.9) mg/dL GFR Calculation (90-130) mL/min Glucose (65-115) mg/dL Calculated Osmolal ity (285-295) mOsm/k g Lactic Acid Cancelled Calcium (8.5-10.5) mg/dL Ferritin (15-150) ng/mL Total Bilirubin (0.15-1.2) mg/dL AST (0-32) U/L ALT (0-33) U/L Alkaline Phosphata se (35-105) IU/L Lactate Dehydrogen ase (135-214) U/L Troponin T Baselin e (0-10) ng/L Troponin T 120 Min [place] (0-10) ng/L Delta Troponin T (0-10) ABS# C-Reactive Protein (0.0-4.9) mg/L Total Protein (6.6-8.7) g/dL Albumin (3.5-5.2) g/dL Globulin (1.3-4.6) g/dL Influenza Type A A g Negative (Negative) Influenza Type B A g Negative (Negative) SARS-CoV-2 Ag (Rap id) (Negative) Group A Strep Rapi d (Negative) 03/13/20 03/13/20 03/13/20 Range/Units 15:46 15:46 17:05 WBC (4.0-10.0) 10^3/ uL RBC (4.1-5.3) 10^6/u L Hgb (11.5-15.3) g/dL Hct (37.0-47.0) % MCV (81-99) fL MCH (28.0-34.0) pg MCHC (30.0-36.0) g/dL RDW (12.1-15.1) % Plt Count (130-400) 10^3/c mm MPV (7.4-10.4) fL Neut % (Auto) % Lymph % (Auto) % [place] % (Auto) % Eos % (Auto) % Baso % (Auto) % Neut # (Auto) (1.8-7.7) 10^3/u L Lymph # (Auto) (0.8-4.8) 10^3/u L [place] # (Auto) (0.2-0.9) 10^3/u L Eos # (Auto) (0.0-0.8) 10^3/u L Baso # (Auto) (0.0-0.1) 10^3/u L Nucleated RBC % (a uto) % Nucleated RBCs # /100WBC Fibrinogen (174-498) mg/dL D-Dimer (0-0.59) ug/mIFE U Sodium (136-145) mmol/L Potassium (3.5-5.1) mmol/L Chloride (98-107) mmol/L Carbon Dioxide (22-29) mmol/L Anion Gap (5-19) BUN (6-20) mg/dL Creatinine (0.5-0.9) mg/dL GFR Calculation (90-130) mL/min Glucose (65-115) mg/dL Calculated Osmolal ity (285-295) mOsm/k g Lactic Acid Calcium (8.5-10.5) mg/dL Ferritin (15-150) ng/mL Total Bilirubin (0.15-1.2) mg/dL AST (0-32) U/L ALT (0-33) U/L Alkaline Phosphata se (35-105) IU/L Lactate Dehydrogen ase (135-214) U/L Troponin T Baselin e (0-10) ng/L Troponin T 120 Min [place] 6.00 (0-10) ng/L Delta Troponin T 0 (0-10) ABS# C-Reactive Protein (0.0-4.9) mg/L Total Protein (6.6-8.7) g/dL Albumin (3.5-5.2) g/dL Globulin (1.3-4.6) g/dL Influenza Type A A g (Negative) Influenza Type B A g (Negative) SARS-CoV-2 Ag (Rap id) Negative (Negative) Group A Strep Rapi d Positive H (Negative) Discharge Plan Discharge Patient Disposition: Home Clinical Impression: Strep pharyngitis Pneumonia Qualifiers: Pneumonia type: due to unspecified organism Laterality: right Lung location: upper lobe of lung Qualified Code(s): J18.9 - Pneumonia, unspecified organism Condition: Stable Prescriptions: New amoxicillin 875 mg tablet 875 mg PO BID Qty: 20 RF: 0 Augmentin 875-125 mg tablet 1 tab PO BID 10 Days Qty: 20 RF: 0 No Action azelastine 137 mcg (0.1 %) aerosol,spray 2 spray INTRANASAL BID RF: 0 cetirizine 10 mg tablet 10 mg PO DAILY RF: 0 (DME) pen needle, diabetic 33 gauge x 5/32 needle See Rx Instructions .ROUTE .MEDSUPPLY Qty: 100 RF: 5 atorvastatin [Lipitor] 20 mg tablet 20 mg PO DAILY Qty: 30 RF: 2 diltiazem HCl 60 mg tablet 60 mg PO .every 12 hours Qty: 60 RF: 2 lisinopril 20 mg tablet 20 mg PO DAILY Qty: 30 RF: 2 meloxicam 15 mg tablet 15 mg PO DAILY Qty: 30 RF: 2 sucralfate [Carafate] 1 gram tablet 1 gm PO BID PRN (Reason: acid reflux) Qty: 60 RF: 2 topiramate [Topamax] 100 mg tablet 100 mg PO Q12H Qty: 60 RF: 2 montelukast [Singulair] 10 mg tablet 10 mg PO DAILY Qty: 30 RF: 2 albuterol sulfate [ProAir HFA] 90 mcg/actuation HFA aerosol inhaler 2 puff INHALATION Q4H PRN (Reason: shortness of breath or wheezing) 30 Days Qty: 6.7 RF: 2 nitroglycerin 0.4 mg tablet, sublingual 0.4 mg SUBLINGUAL Q5M PRN (Reason: chest pain) Qty: 25 RF: 0 paroxetine HCl 20 mg tablet 20 mg PO DAILY Qty: 30 RF: 5 trazodone 50 mg tablet 50 mg PO .at bedtime Qty: 30 RF: 5 aspirin 81 mg tablet,delayed release (DR/EC) 81 mg PO DAILY RF: 0 epinephrine 0.3 mg/0.3 mL syringe 0.3 mg IM Q10M PRN (Reason: anaphylaxis) Qty: 2 RF: 3 Victoza 3-Sumit 0.6 mg/0.1 mL (18 mg/3 mL) pen injector 1.2 mg SUBCUT DAILY Qty: 9 RF: 0 cyanocobalamin (vitamin B-12) [Vitamin B-12] 1,000 mcg Tablet 1,000 mcg PO DAILY RF: 0 fluticasone propionate 50 mcg/actuation [place],Suspension See Rx Instructions .ROUTE .COMPLEX RF: 0 Multiple Vitamin, Womens Tablet 1 tab PO DAILY RF: 0 cholecalciferol (vitamin D3) [Vitamin D3] 25 mcg (1,000 unit) Tablet 25 mcg PO DAILY RF: 0 levocetirizine 5 mg Tablet See Rx Instructions .ROUTE .COMPLEX RF: 0 omega 8-jgb-[id number]-fish oil [Fish Oil] 1,000 mg (120 mg-180 mg) Capsule 1 cap PO DAILY RF: 0 vitamin E 1 cap PO DAILY RF: 0 Discharge Orders: Discharge Order (Routine); Ordered 03/13/20 Ordered By: Dick Carpio Referrals: Mary Silveira, [facility] [Primary Care Provider] - 1-3 days Discharge Diet: Usual diet Discharge Activity: Increase activity as tolerated Patient Instructions: Pharyngitis (ED), Strep Throat (ED), Bacterial Pneumonia (ED) Activity Restrictions/Additional Instructions: Please return to the ER immediately for any of the signs or symptoms listed on your discharge instruction sheets, worsening/changing of your symptoms, you are not getting better as quickly as expected, or for ANY other cause or concerns. Sign Out Sign Out Data: Patient Sign Out occurred on 03/13/20 at 18:18. Patient's care was discussed, and care was transferred from to [facility] Felipe [facility]. Coding Level of Care Code ED Pattern Mechanic for Chg Fwd Exam Comprehensive Documented by User: Shantell Packer 03/14/20 00:09 HPI - Chest Pain General: Chief Complaint: Chest Pain Stated Complaint: CP Time Seen by Provider: 03/13/20 14:00 PFSH ED PFSH: Medical History (Updated 03/13/20 @ 19:28 by Shantell Packer) Atrophy of vulva GERD (gastroesophageal reflux disease) History of kidney stones Hyperlipidemia Hypertension Insomnia Major depressive disorder, recurrent, moderate Osteoarthritis Renal calculi History of a large stone requiring ESWL but with complete resolution eventually. Encourage dietary modification for stone risk reduction. Surgical History H/O lateral meniscus repair of right knee H/O repair of left rotator cuff H/O repair of right rotator cuff History of cholecystectomy History of left breast biopsy History of lithotripsy History of partial hysterectomy without BSO History of tubal ligation Family History Father Heart disease Mother Osteoarthritis Other CAD (coronary artery disease) Cancer Diabetes Hypertension Osteoporosis Rheumatoid arthritis Denies family history of Stroke Social History Smoking and tobacco status: never smoked Second hand smoke exposure: No Smoking risk assessment/counseling performed?: No Alcohol intake: never Desire information about alcohol rehabilitation?: No Counseling given: No Desire information about substance/drug rehabilitation?: No Counseling given: No Adopted: No Caregiver/support person: No Lives independently: Yes Household members: spouse Marital status: service: No Current occupational status: disabled History of recent travel: No Current gender identity: Female Course Vital Signs: Vital signs: Vital Signs Temperature 100.2 F H 03/13/20 13:17 Pulse Rate 99 03/13/20 19:35 Respiratory Rate 20 H 03/13/20 13:17 Blood Pressure 141/82 03/13/20 13:17 Pulse Oximetry 96 03/13/20 19:35 MDM - Chest Pain MDM Narrative: Medical decision making narrative: 1925 -Case turned over to me at change of shift from Dr. Carpio. Please see his note for his history, physical exam and medical decision-making notes. Patient CT is negative for pulmonary embolism but does show minimal right upper lobe inflammation. To my eye this is not very apparent but I will place her on Augmentin for this that will cover pneumonia and strep. Patient is not hypoxic or tachycardic. Patient's troponins have been negative x2. Patient is adamant she wants to go home at this time is a good discharge her and have her follow-up with her regular doctor. Lab Data: Attestation: I reviewed the patient's lab results. Labs: Lab Results 03/13/20 03/13/20 03/13/20 Range/Units 15:40 15:40 15:40 WBC 15.9 H (4.0-10.0) 10^3/ uL RBC 4.17 (4.1-5.3) 10^6/u L Hgb 12.1 (11.5-15.3) g/dL Hct 38.0 (37.0-47.0) % MCV 91.1 (81-99) fL MCH 29.0 (28.0-34.0) pg MCHC 31.8 (30.0-36.0) g/dL RDW 13.2 (12.1-15.1) % Plt Count 308 (130-400) 10^3/c mm MPV 12.3 H (7.4-10.4) fL Neut % (Auto) 80.9 % Lymph % (Auto) 8.6 % [place] % (Auto) 9.2 % Eos % (Auto) 0.3 % Baso % (Auto) 0.6 % Neut # (Auto) 12.86 H (1.8-7.7) 10^3/u L Lymph # (Auto) 1.4 (0.8-4.8) 10^3/u L [place] # (Auto) 1.5 H (0.2-0.9) 10^3/u L Eos # (Auto) 0.1 (0.0-0.8) 10^3/u L Baso # (Auto) 0.1 (0.0-0.1) 10^3/u L Nucleated RBC % (a uto) 0 % Nucleated RBCs # 0.0 /100WBC Fibrinogen (174-498) mg/dL D-Dimer (0-0.59) ug/mIFE U Sodium 140 (136-145) mmol/L Potassium 3.5 (3.5-5.1) mmol/L Chloride 105 (98-107) mmol/L Carbon Dioxide 23 (22-29) mmol/L Anion Gap 15.5 (5-19) BUN 11 (6-20) mg/dL Creatinine 0.8 (0.5-0.9) mg/dL GFR Calculation 73.9 L (90-130) mL/min Glucose 105 (65-115) mg/dL Calculated Osmolal ity 290 (285-295) mOsm/k g Lactic Acid Calcium 9.1 (8.5-10.5) mg/dL Ferritin 100 (15-150) ng/mL Total Bilirubin 0.2 (0.15-1.2) mg/dL AST 19 (0-32) U/L ALT 18 (0-33) U/L Alkaline Phosphata se 87 (35-105) IU/L Lactate Dehydrogen ase 195 (135-214) U/L Troponin T Baselin e 6 (0-10) ng/L Troponin T 120 Min [place] (0-10) ng/L Delta Troponin T (0-10) ABS# C-Reactive Protein 23.1 H (0.0-4.9) mg/L Total Protein 7.3 (6.6-8.7) g/dL Albumin 4.0 (3.5-5.2) g/dL Globulin 3.3 (1.3-4.6) g/dL Influenza Type A A g (Negative) Influenza Type B A g (Negative) SARS-CoV-2 Ag (Rap id) (Negative) Group A Strep Rapi d (Negative) 03/13/20 03/13/20 03/13/20 Range/Units 15:40 15:42 15:46 WBC (4.0-10.0) 10^3/ uL RBC (4.1-5.3) 10^6/u L Hgb (11.5-15.3) g/dL Hct (37.0-47.0) % MCV (81-99) fL MCH (28.0-34.0) pg MCHC (30.0-36.0) g/dL RDW (12.1-15.1) % Plt Count (130-400) 10^3/c mm MPV (7.4-10.4) fL Neut % (Auto) % Lymph % (Auto) % [place] % (Auto) % Eos % (Auto) % Baso % (Auto) % Neut # (Auto) (1.8-7.7) 10^3/u L Lymph # (Auto) (0.8-4.8) 10^3/u L [place] # (Auto) (0.2-0.9) 10^3/u L Eos # (Auto) (0.0-0.8) 10^3/u L Baso # (Auto) (0.0-0.1) 10^3/u L Nucleated RBC % (a uto) % Nucleated RBCs # /100WBC Fibrinogen 415 (174-498) mg/dL D-Dimer 1.52 H (0-0.59) ug/mIFE U Sodium (136-145) mmol/L Potassium (3.5-5.1) mmol/L Chloride (98-107) mmol/L Carbon Dioxide (22-29) mmol/L Anion Gap (5-19) BUN (6-20) mg/dL Creatinine (0.5-0.9) mg/dL GFR Calculation (90-130) mL/min Glucose (65-115) mg/dL Calculated Osmolal ity (285-295) mOsm/k g Lactic Acid Cancelled Calcium (8.5-10.5) mg/dL Ferritin (15-150) ng/mL Total Bilirubin (0.15-1.2) mg/dL AST (0-32) U/L ALT (0-33) U/L Alkaline Phosphata se (35-105) IU/L Lactate Dehydrogen ase (135-214) U/L Troponin T Baselin e (0-10) ng/L Troponin T 120 Min [place] (0-10) ng/L Delta Troponin T (0-10) ABS# C-Reactive Protein (0.0-4.9) mg/L Total Protein (6.6-8.7) g/dL Albumin (3.5-5.2) g/dL Globulin (1.3-4.6) g/dL Influenza Type A A g Negative (Negative) Influenza Type B A g Negative (Negative) SARS-CoV-2 Ag (Rap id) (Negative) Group A Strep Rapi d (Negative) 03/13/20 03/13/20 03/13/20 Range/Units 15:46 15:46 17:05 WBC (4.0-10.0) 10^3/ uL RBC (4.1-5.3) 10^6/u L Hgb (11.5-15.3) g/dL Hct (37.0-47.0) % MCV (81-99) fL MCH (28.0-34.0) pg MCHC (30.0-36.0) g/dL RDW (12.1-15.1) % Plt Count (130-400) 10^3/c mm MPV (7.4-10.4) fL Neut % (Auto) % Lymph % (Auto) % [place] % (Auto) % Eos % (Auto) % Baso % (Auto) % Neut # (Auto) (1.8-7.7) 10^3/u L Lymph # (Auto) (0.8-4.8) 10^3/u L [place] # (Auto) (0.2-0.9) 10^3/u L Eos # (Auto) (0.0-0.8) 10^3/u L Baso # (Auto) (0.0-0.1) 10^3/u L Nucleated RBC % (a uto) % Nucleated RBCs # /100WBC Fibrinogen (174-498) mg/dL D-Dimer (0-0.59) ug/mIFE U Sodium (136-145) mmol/L Potassium (3.5-5.1) mmol/L Chloride (98-107) mmol/L Carbon Dioxide (22-29) mmol/L Anion Gap (5-19) BUN (6-20) mg/dL Creatinine (0.5-0.9) mg/dL GFR Calculation (90-130) mL/min Glucose (65-115) mg/dL Calculated Osmolal ity (285-295) mOsm/k g Lactic Acid Calcium (8.5-10.5) mg/dL Ferritin (15-150) ng/mL Total Bilirubin (0.15-1.2) mg/dL AST (0-32) U/L ALT (0-33) U/L Alkaline Phosphata se (35-105) IU/L Lactate Dehydrogen ase (135-214) U/L Troponin T Baselin e (0-10) ng/L Troponin T 120 Min [place] 6.00 (0-10) ng/L Delta Troponin T 0 (0-10) ABS# C-Reactive Protein (0.0-4.9) mg/L Total Protein (6.6-8.7) g/dL Albumin (3.5-5.2) g/dL Globulin (1.3-4.6) g/dL Influenza Type A A g (Negative) Influenza Type B A g (Negative) SARS-CoV-2 Ag (Rap id) Negative (Negative) Group A Strep Rapi d Positive H (Negative) Imaging Data^: CT Chest: Radiologist's impression: [place] [address] CT Scan Report Signed Patient: Anjelica Neely Unit #: [id number] : 1960 Age/Sex: 59 / F ADM Date: 03/13/20 Loc: ER Room/Bed: Attending Dr: Ordering Provider/Ordering MD: Dick Carpio DO Date of Service: 03/13/20 Procedure(s): CT angio chest PE protcl [id number] Accession Number(s): [id number] Report Number: [id number] PROCEDURE INFORMATION: Exam: CT Angiography Chest With Contrast Exam date and time: 03/13/2020 4:24 PM Age: 59 years old Clinical indication: Cough and shortness of breath; Prior surgery; Surgery type: Lump removed; Patient HX: Scan x 2 --poor bolus; Additional info: Dyspnea TECHNIQUE: Imaging protocol: Computed tomographic angiography of the chest with intravenous contrast. 3D rendering (Not supervised by radiologist): MIP and/or 3D reconstructed images were created by the technologist. Radiation optimization: All CT scans at this facility use at least one of these dose optimization techniques: automated exposure control; mA and/or kV adjustment per patient size (includes targeted exams where dose is matched to clinical indication); or iterative reconstruction. Contrast material: OMNI 350; Contrast volume: 137 ml; Contrast route: INTRAVENOUS (IV); COMPARISON: CR XR chest 1V portable [id number] 03/13/2020 3:08 PM RADIATION DOSE METRICS: Total DLP (mGy-cm): 1063.15 FINDINGS: Limitations: Suboptimal/less than robust opacification the pulmonary arterial tree. Pulmonary arteries: There is no evidence of filling defects within the pulmonary arterial circulation to suggest pulmonary embolism. Aorta: Unremarkable. No aortic aneurysm. No aortic dissection. Lungs: There is calcified granuloma in the right upper lobe. There is some minimal peribronchial ground-glass opacity and a suggestion of small centrilobular opacities in the right upper lobe which could represent some mild or early inflammatory disease. There is however no gross evidence of pneumonia. There is some mild dependent atelectasis at the lung bases. Pleural space: Unremarkable. No pneumothorax. No pleural effusion. Heart: Unremarkable. No cardiomegaly. No pericardial effusion. Lymph nodes: There are calcified hilar and mediastinal lymph nodes in keeping with old granulomatous disease. There is mildly prominent left hilar lymph node measuring approximately 10 x 13 mm. There are small paratracheal lymph nodes but no paratracheal or right hilar adenopathy. Gallbladder and bile ducts: There has been a cholecystectomy. Spleen: The spleen demonstrates punctate calcifications, consistent with remote granulomatous organism exposure. Adrenals: The adrenal glands are normal. Bones/joints: Unremarkable. No acute fracture. Soft tissues: Unremarkable. CT/CT angio chest PE protcl [id number] IMPRESSION: 1. Minimal inflammatory changes in the right upper lobe. 2. Old granulomatous disease. 3. No evidence of pulmonary embolism. Radiation Dose CTDIVOL = (mGy): DLP = 1063.15 (mGy-cm) Dictated By: Cristobal Batista Signed By: Cristobal Batista Signed Date/Time: 03/13/201903 DD/ 01 Discharge Plan Discharge Patient Disposition: Home Clinical Impression: Strep pharyngitis Pneumonia Qualifiers: Pneumonia type: due to unspecified organism Laterality: right Lung location: upper lobe of lung Qualified Code(s): J18.9 - Pneumonia, unspecified organism Condition: Stable Prescriptions: New amoxicillin 875 mg tablet 875 mg PO BID Qty: 20 RF: 0 Augmentin 875-125 mg tablet 1 tab PO BID 10 Days Qty: 20 RF: 0 No Action azelastine 137 mcg (0.1 %) aerosol,spray 2 spray INTRANASAL BID RF: 0 cetirizine 10 mg tablet 10 mg PO DAILY RF: 0 (DME) pen needle, diabetic 33 gauge x 5/32 needle See Rx Instructions .ROUTE .MEDSUPPLY Qty: 100 RF: 5 atorvastatin [Lipitor] 20 mg tablet 20 mg PO DAILY Qty: 30 RF: 2 diltiazem HCl 60 mg tablet 60 mg PO .every 12 hours Qty: 60 RF: 2 lisinopril 20 mg tablet 20 mg PO DAILY Qty: 30 RF: 2 meloxicam 15 mg tablet 15 mg PO DAILY Qty: 30 RF: 2 sucralfate [Carafate] 1 gram tablet 1 gm PO BID PRN (Reason: acid reflux) Qty: 60 RF: 2 topiramate [Topamax] 100 mg tablet 100 mg PO Q12H Qty: 60 RF: 2 montelukast [Singulair] 10 mg tablet 10 mg PO DAILY Qty: 30 RF: 2 albuterol sulfate [ProAir HFA] 90 mcg/actuation HFA aerosol inhaler 2 puff INHALATION Q4H PRN (Reason: shortness of breath or wheezing) 30 Days Qty: 6.7 RF: 2 nitroglycerin 0.4 mg tablet, sublingual 0.4 mg SUBLINGUAL Q5M PRN (Reason: chest pain) Qty: 25 RF: 0 paroxetine HCl 20 mg tablet 20 mg PO DAILY Qty: 30 RF: 5 trazodone 50 mg tablet 50 mg PO .at bedtime Qty: 30 RF: 5 aspirin 81 mg tablet,delayed release (DR/EC) 81 mg PO DAILY RF: 0 epinephrine 0.3 mg/0.3 mL syringe 0.3 mg IM Q10M PRN (Reason: anaphylaxis) Qty: 2 RF: 3 Victoza 3-Sumit 0.6 mg/0.1 mL (18 mg/3 mL) pen injector 1.2 mg SUBCUT DAILY Qty: 9 RF: 0 cyanocobalamin (vitamin B-12) [Vitamin B-12] 1,000 mcg Tablet 1,000 mcg PO DAILY RF: 0 fluticasone propionate 50 mcg/actuation [place],Suspension See Rx Instructions .ROUTE .COMPLEX RF: 0 Multiple Vitamin, Womens Tablet 1 tab PO DAILY RF: 0 cholecalciferol (vitamin D3) [Vitamin D3] 25 mcg (1,000 unit) Tablet 25 mcg PO DAILY RF: 0 levocetirizine 5 mg Tablet See Rx Instructions .ROUTE .COMPLEX RF: 0 omega 7-qan-qob-fish oil [Fish Oil] 1,000 mg (120 mg-180 mg) Capsule 1 cap PO DAILY RF: 0 vitamin E 1 cap PO DAILY RF: 0 Discharge Orders: Discharge Order (Routine); Ordered 03/13/20 Ordered By: Dick Carpio Referrals: Mary Silveira, JACK-C [Primary Care Provider] - 1-3 days Discharge Diet: Usual diet Discharge Activity: Increase activity as tolerated Patient Instructions: Pharyngitis (ED), Strep Throat (ED), Bacterial Pneumonia (ED) Activity Restrictions/Additional Instructions: Please return to the ER immediately for any of the signs or symptoms listed on your discharge instruction sheets, worsening/changing of your symptoms, you are not getting better as quickly as expected, or for ANY other cause or concerns. Sign Out Sign Out Data: Patient Sign Out occurred on 03/13/20 at 18:18. Patient's care was discussed, and care was transferred from to Shantell Packer. Coding Level of Care Code ED Pattern Mechanic for Ashlee Fwd Exam Comprehensive
--- NOTE | 2020-03-13 14:52 | XR_ITS ---
WS: [id number] XR chest 1V portable [id number] REASON FOR EXAM: dyspnea/cough FINDINGS: Chest is unchanged compared to previous examination of 01/18/2020. The heart and mediastinum are within normal limits. No active pulmonary parenchymal or pleural disease. Moderately severe changes of degenerative spondylosis in the thoracic spine. Previous bilateral rotat or cuff surgery. XR/XR chest 1V portable [id number] IMPRESSION: No acute chest abnormality.
[2020-03-13 15:54] LABS: Basophils # 0.1 10^3/uL (0.0-0.1); Basophils % 0.6 %; Eosinophils # 0.1 10^3/uL (0.0-0.8); Eosinophils % 0.3 %; Hemoglobin 12.1 g/dL (11.5-15.3); Lymphocytes # 1.4 10^3/uL (0.8-4.8); Lymphocytes % 8.6 %; Mean Corpuscular HGB Conc 31.8 g/dL (30.0-36.0); Mean Corpuscular Volume 91.1 fL (81-99); Mean Platelet Volume 12.3 fL (7.4-10.4); Monocytes # 1.5 10^3/uL (0.2-0.9); Monocytes % 9.2 %; Neutrophils # 12.86 10^3/uL (1.8-7.7); Neutrophils % 80.9 %; Nucleated Red Blood Cells % 0 %; Platelet Count 308 10^3/cmm (130-400); Red Blood Count 4.17 10^6/uL (4.1-5.3); Red Cell Distribution Width 13.2 % (12.1-15.1); White Blood Count 15.9 10^3/uL (4.0-10.0)
--- NOTE | 2020-03-13 16:05 | ECG_ITS ---
[facility] Test Date: 2020-03-13 Pat Name: Anjelica Neely Department: Room: Gender: Female Court Clerk: : 1960 Requested By: Dick Morales Order Number: [id number] Alexis MD: Jose Guillen M.D. Measurements Intervals Hiram Rate: 103 P: 34 MS: 173 QRS: 64 QRSD: 96 T: -3 QT: 309 QTc: 405 Interpretive Statements SINUS TACHYCARDIA WITH OCCASIONAL VENTRICULAR PREMATURE COMPLEXES NONSPECIFIC ST & T-WAVE ABNORMALITY Compared to ECG 01/14/2019 17:41:03 Ventricular premature complex(es) now present T-wave abnormality now present Sinus rhythm no longer present Myocardial infarct finding no longer present Electronically Signed On 03-13-2020 19:26:19 TEACHING YOUNG by Jose Guillen M.D. [id number]
[2020-03-13 16:13] LABS: D Dimer 1.52 ug/mIFEU (0-0.59); Fibrinogen 415 mg/dL (174-498)
[2020-03-13 16:17] LABS: Troponin(5th) Baseline 6 ng/L (0-10)
[2020-03-13 16:18] LABS: Alanine Aminotransferase 18 U/L (0-33); Alkaline Phosphatase 87 IU/L (35-105); Anion Gap 15.5 (5-19); Aspartate Amino Transferase 19 U/L (0-32); Blood Urea Nitrogen 11 mg/dL (6-20); C Reactive Protein 23.1 mg/L (0.0-4.9); Calcium 9.1 mg/dL (8.5-10.5); Carbon Dioxide 23 mmol/L (22-29); Chloride 105 mmol/L (98-107); Ferritin 100 ng/mL (15-150); Globulin 3.3 g/dL (1.3-4.6); Glomerular Filtration Rate 73.9 mL/min (90-130); Glucose 105 mg/dL (65-115); Lactate Dehydrogenase 195 U/L (135-214); Osmolality Calculated 290 mOsm/kg (285-295); Potassium 3.5 mmol/L (3.5-5.1); Sodium 140 mmol/L (136-145); Total Bilirubin 0.2 mg/dL (0.15-1.2); Total Protein 7.3 g/dL (6.6-8.7)
--- NOTE | 2020-03-13 16:19 | CTR_ITS ---
PROCEDURE INFORMATION: Exam: CT Angiography Chest With Contrast Exam date and time: 03/13/2020 4:24 PM Age: 59 years old Clinical indication: Cough and shortness of breath; Prior surgery; Surgery type: Lump removed; Patient HX: Scan x 2 --poor bolus; Additional info: Dyspnea TECHNIQUE: Imaging protocol: Computed tomographic angiography of the chest with intravenous contrast. 3D rendering (Not supervised by radiologist): MIP and/or 3D reconstructed images were created by the technologist. Radiation optimization: All CT scans at this facility use at least one of these dose optimization techniques: automated exposure control; mA and/or kV adjustment per patient size (includes targeted exams where dose is matched to clinical indication); or iterative reconstruction. Contrast material: OMNI 350; Contrast volume: 137 ml; Contrast route: INTRAVENOUS (IV); COMPARISON: CR XR chest 1V portable [id number] 03/13/2020 3:08 PM RADIATION DOSE METRICS: Total DLP (mGy-cm): 1063.15 FINDINGS: Limitations: Suboptimal/less than robust opacification the pulmonary arterial tree. Pulmonary arteries: There is no evidence of filling defects within the pulmonary arterial circulation to suggest pulmonary embolism. Aorta: Unremarkable. No aortic aneurysm. No aortic dissection. Lungs: There is calcified granuloma in the right upper lobe. There is some minimal peribronchial ground-glass opacity and a suggestion of small centrilobular opacities in the right upper lobe which could represent some mild or early inflammatory disease. There is however no gross evidence of pneumonia. There is some mild dependent atelectasis at the lung bases. Pleural space: Unremarkable. No pneumothorax. No pleural effusion. Heart: Unremarkable. No cardiomegaly. No pericardial effusion. Lymph nodes: There are calcified hilar and mediastinal lymph nodes in keeping with old granulomatous disease. There is mildly prominent left hilar lymph node measuring approximately 10 x 13 mm. There are small paratracheal lymph nodes but no paratracheal or right hilar adenopathy. Gallbladder and bile ducts: There has been a cholecystectomy. Spleen: The spleen demonstrates punctate calcifications, consistent with remote granulomatous organism exposure. Adrenals: The adrenal glands are normal. Bones/joints: Unremarkable. No acute fracture. Soft tissues: Unremarkable. CT/CT angio chest PE protcl [id number] IMPRESSION: 1. Minimal inflammatory changes in the right upper lobe. 2. Old granulomatous disease. 3. No evidence of pulmonary embolism. Radiation Dose CTDIVOL = (mGy): DLP = 1063.15 (mGy-cm)
[2020-03-13 16:23] LABS: Rapid Strep A Test Positive (Negative)
[2020-03-13 16:40] LABS: Influenza A by IFA Negative (Negative); Influenza B by IFA Negative (Negative); SARS Covid-2 Antigen Negative (Negative)
[2020-03-13] MEDS: cefTRIAXone 1,000 mg SDV 1000 MG IM (17:54)
[2020-03-13] MEDS: lidocaine 1% INJ 20 mL IM (17:54)
[2020-03-13] MEDS: acetaminophen 500 mg Tablet 1000 MG PO (18:24)
--- NOTE | 2020-03-13 18:38 | PC.NURSE ---
patient to ct
[2020-03-13 18:39] LABS: Troponin 5 2HR Delta 0 ABS# (0-10)
[2020-03-13] MEDS: iohexol 350 mg/mL 100 mL Btl IV ×2 (18:44)
[2020-03-13 19:35] VITALS: PULSE 99; O2SAT 96
== END 2020-03-13 19:38 | disposition home or self-care (01) ==
PROVIDERS: Family Medicine; Emergency Provider Emergency Medicine; PCP Nurse Practitioner
DX: J02.0 Streptococcal pharyngitis (principal); J18.9 Pneumonia, unspecified organism; Z79.82 Long term (current) use of aspirin; E78.5 Hyperlipidemia, unspecified; I10 Essential (primary) hypertension; F33.9 Major depressive disorder, recurrent, unspecified
CPT/HCPCS: 12345; 71045; 71275; 80053; 82728; 83615; 84484; 85025; 85378; 85384; 86140; 87426; 87804; 87880; 93005; 96372; 99282; 99284; J0696; Q9967

== ENCOUNTER → 2020-03-21 11:24 | Outpatient (BNVA) | payer SELFPAY | PROVIDERS: PCP Nurse Practitioner; Visit Provider Nurse Practitioner | DX: J18.9 Pneumonia, unspecified organism (principal); J30.89 Other allergic rhinitis; I10 Essential (primary) hypertension; K21.9 Gastro-esophageal reflux disease without esophagitis; J98.8 Other specified respiratory disorders; M15.9 Polyosteoarthritis, unspecified; G62.9 Polyneuropathy, unspecified | CPT/HCPCS: 85025 ==

== ENCOUNTER → 2020-04-02 11:55 | Outpatient (BNVA) | payer SELFPAY | PROVIDERS: PCP Nurse Practitioner; Visit Provider Nurse Practitioner | DX: D72.829 Elevated white blood cell count, unspecified (principal); J30.89 Other allergic rhinitis | CPT/HCPCS: 85025 ==

== ENCOUNTER 2020-04-13 07:39 | Outpatient (CLI) | payer SELFPAY ==
--- NOTE | 2020-04-13 07:30 | XR_ITS ---
WS: [id number] XR KUB 00016 REASON FOR EXAM: RENAL CALCULI FINDINGS: No calculi are identified overlying the kidneys or along the abdominal or pelvic course of ureters. N o calculus overlies the bladder. Moderate amount of stool in the colon. No dilated bowel. No mass identified. XR/XR KUB [id number] IMPRESSION: No urinary tract calculi are identified.
== END 2020-04-13 07:40 | disposition home or self-care (01) ==
LOC: RAD 07:40
PROVIDERS: PCP Nurse Practitioner; Visit Provider Nurse Practitioner Family
DX: N20.0 Calculus of kidney (principal)
CPT/HCPCS: 74018; 81003; 87086

== ENCOUNTER 2020-04-15 01:52 | Emergency (ER) | payer SELFPAY ==
[2020-04-15 01:54] VITALS: BP 153/94; PULSE 66; RESP 18; TEMP 36.8; O2SAT 100; BMI 39.6
[2020-04-15 02:26] VITALS: BP 138/81; PULSE 64; RESP 18; O2SAT 98
--- NOTE | 2020-04-15 02:28 | CTR_ITS ---
PROCEDURE INFORMATION: Exam: CT Abdomen And Pelvis With Contrast Exam date and time: 04/15/2020 2:38 AM Age: 59 years old Clinical indication: Abdominal pain; Localized; Right lower quadrant (rlq); Prior surgery; Surgery date: 6+ months; Surgery type: Hyst, gb; Additional info: Rlq pain TECHNIQUE: Imaging protocol: Computed tomography of the abdomen and pelvis with intravenous contrast. Radiation optimization: All CT scans at this facility use at least one of these dose optimization techniques: automated exposure control; mA and/or kV adjustment per patient size (includes targeted exams where dose is matched to clinical indication); or iterative reconstruction. Contrast material: OMNI 300; Contrast volume: 95 ml; Contrast route: INTRAVENOUS (IV); COMPARISON: CT Abdomen/Pelvis Renal [id number] 09/09/2018 3:14 PM RADIATION DOSE METRICS: Total DLP (mGy-cm): 1284.21 FINDINGS: Mediastinal space: There is a tiny hiatal hernia present. Liver: Normal. No mass. Gallbladder and bile ducts: Status post cholecystectomy. There is mild prominence of the common bile duct measuring 10.5 mm in its midportion tapering to normal caliber within the pancreas. Pancreas: Normal. No ductal dilation. Spleen: Punctate calcifications are seen within the spleen compatible with calcified granulomas. Adrenal glands: Normal. No mass. Kidneys and ureters: A stable 6.9 mm cyst is seen on the anterior aspect of the left kidney. Strandy opacities are seen in the perinephric fascia surrounding the right kidney. There is a delayed right nephrogram present. Moderate hydronephrosis and hydroureter seen. There is a partially obstructing 2.5 mm distal right ureteral calculus at the level of the ureterovesical junction. There are multiple tiny hyperdensity seen within the lower pole calices of the right kidney. Stomach and bowel: Diverticula are present on the descending and sigmoid colon. There are no inflammatory changes seen to suggest diverticulitis. Appendix: The appendix is not seen in the current examination. There are no inflammatory changes present to suggest appendicitis. Intraperitoneal space: Unremarkable. No free air. No significant fluid collection. Vasculature: Unremarkable. No abdominal aortic aneurysm. Lymph nodes: Unremarkable. No enlarged lymph nodes. Urinary bladder: Unremarkable as visualized. Reproductive: Unremarkable as visualized. Bones/joints: Unremarkable. No acute fracture. Soft tissues: Unremarkable. CT/CT abdomen pelvis w con* [id number] IMPRESSION: 1. Partially obstructing 2.5 mm distal right ureteral calculus at the level of the ureterovesical junction. 2. Cluster of hyperdensities are seen in the inferior renal calices on the right compatible with nonobstructing calculi. 3. Diverticulosis of the descending and sigmoid colon. COMMENTS: Consistent with the [employer]'s Incidental Findings Committee white paper (J Am Javier Radiol 2018): Any incidental renal lesion less than 1 cm or classified as too small to characterize, or any incidental cystic renal lesion characterized as simple-appearing, is likely benign. No follow-up imaging is recommended for these lesions per consensus recommendations based on imaging criteria. Radiation Dose CTDIVOL = (mGy): DLP = 1284.21 (mGy-cm)
--- NOTE | 2020-04-15 02:28 | W.ED.ABDPA2 ---
HPI - Abdominal Pain General: Chief Complaint: Abdominal Pain Stated Complaint: abd pain Time Seen by Provider: 04/15/20 01:58 History of Present Illness: HPI narrative: 59-year-old female with a history of kidney stones. She has had a hysterectomy as well. She presents with right-sided belly pain that started a couple of days ago. She had some hematuria 2 days ago as well, and was seen by urology. It was assumed that she had a stone. She says that her hematuria cleared, but her belly pain is gotten worse. She started vomiting this evening, and it has continued. No fever. No diarrhea. No blood in the stool. MD elicited complaint: abdominal pain Pertinent past history: kidney stones Onset (ago): day(s) Pain Consistency: constant Location: RLQ and R flank Quality: stabbing and aching Radiation: none Migration to: no migration Exacerbating factors: movement Relieving factors: nothing Associated Symptoms: Reports hematuria, nausea and vomiting; Denies change in stool character, constipation, diarrhea, dysuria, fever(s) and hematochezia Review of Systems Const: Denies: fever(s) Eyes: Denies: change in vision ENMT: Denies: odynophagia or sinus pain Card: Denies: chest pain, palpitations or irregular heart rhythm Resp: Denies: dyspnea, productive cough, non-productive cough or wheezing GI: Reports: nausea and vomiting; Denies: diarrhea, constipation, change in stool character or hematochezia : Reports: hematuria; Denies: dysuria Musc: Reports: back pain; Denies: neck pain Skin/Breast: Denies: rash or erythema Neuro: Denies: dizziness, vertigo or confusion Psych: Denies: anxiety PFSH ED PFSH: Medical History (Updated 04/15/20 @ 04:08 by Steven Ellis DO) Atrophy of vulva GERD (gastroesophageal reflux disease) History of kidney stones Hyperlipidemia Hypertension Insomnia Major depressive disorder, recurrent, moderate Osteoarthritis Renal calculi History of a large stone requiring ESWL but with complete resolution eventually. Encourage dietary modification for stone risk reduction. Surgical History H/O lateral meniscus repair of right knee H/O repair of left rotator cuff H/O repair of right rotator cuff History of cholecystectomy History of left breast biopsy History of lithotripsy History of partial hysterectomy without BSO History of tubal ligation Family History Father Heart disease Mother Osteoarthritis Other CAD (coronary artery disease) Cancer Diabetes Hypertension Osteoporosis Rheumatoid arthritis Denies family history of Stroke Social History Smoking and tobacco status: never smoked Second hand smoke exposure: No Smoking risk assessment/counseling performed?: No Alcohol intake: never Desire information about alcohol rehabilitation?: No Counseling given: No Desire information about substance/drug rehabilitation?: No Counseling given: No Adopted: No Caregiver/support person: No Lives independently: Yes Household members: spouse Marital status: service: No Current occupational status: disabled History of recent travel: No Current gender identity: Female Physical Exam Const: GENERAL APPEARANCE: well developed ORIENTATION/CONSCIOUSNESS: Yes oriented to person, Yes oriented to place and Yes oriented to time HENMT: COMMON NORMALS: normocephalic, external ears normal and Normal external nose present HEAD & SCALP: normocephalic FACE & SINUS: normal facial exam NOSE: Normal external nose present EXTERNAL EAR: Yes external ears normal Eye: COMMON NORMALS: Equal, round and reactive pupils present, EOMs intact bilaterally and conjunctivae normal EYELID: eyelids normal CONJUNCTIVA: Yes conjunctivae normal PUPIL: Yes Equal, round and reactive pupils present Neck/C-Spine: GENERAL: No tracheal deviation Chest: COMMONS NORMALS: normal inspection of the chest CHEST: No tenderness Resp: COMMON NORMALS: clear to auscultation bilaterally EFFORT & INSPECTION: No tachypneic, No respiratory distress, No retractions, No uses accessory muscles and No tracheal deviation AUSCULTATION: clear to auscultation bilaterally, no rhonchi, no wheezes and lung sounds not diminished Cardio: COMMON NORMALS: regular rate and regular rhythm RATE: regular rate RHYTHM: regular rhythm HEART SOUNDS: no murmurs PERIPHERAL PULSES: radial pulses present GI: INSPECTION: No abdominal distension AUSCULTATION: No Hyperactive bowel sounds present and No Hypoactive bowel sounds present PALPATION: Yes Tenderness to palpation present (GI) Details: RLQ, Yes Guarding due to palpation present (GI) and No Rigid due to palpation PERCUSSION: no dullness to percussion and no tympanic to percussion : BLADDER/KIDNEY EXAM: Yes CVA tenderness on the right Back/Pelvis: GENERAL BACK: Yes CVA tenderness Neuro: SENSORIUM/ORIENTATION: Yes oriented to person, Yes oriented to place and Yes oriented to time Psych: COMMON NORMALS: mental status grossly normal Skin: COMMON NORMALS: no rashes or lesions noted GENERAL SKIN EXAM: no rashes or lesions noted Course Vital Signs: Vital signs: Vital Signs Temperature 98.3 F 04/15/20 01:54 Pulse Rate 67 04/15/20 04:19 Respiratory Rate 17 04/15/20 04:19 Blood Pressure 123/67 04/15/20 04:19 Pulse Oximetry 100 04/15/20 04:19 MDM - Abdominal Pain MDM Narrative: Medical decision making narrative: White blood cell count 18.7. Electrolytes are normal. Renal function is normal. No UTI by urinalysis. CT shows a 2.5 mm distal ureter stone at the UVJ. Symptoms are controlled now after fentanyl and Toradol. She is resting comfortably with no more vomiting. She will be prescribed pain medication and Zofran. Urology follow-up. Lab Data: Labs: Lab Results 04/15/20 04/15/20 04/15/20 Range/Units 02:11 02:24 02:24 WBC 18.7 H (4.0-10.0) 10^3/ uL RBC 4.33 (4.1-5.3) 10^6/u L Hgb 12.7 (11.5-15.3) g/dL Hct 39.6 (37.0-47.0) % MCV 91.5 (81-99) fL MCH 29.3 (28.0-34.0) pg MCHC 32.1 (30.0-36.0) g/dL RDW 13.1 (12.1-15.1) % Plt Count 319 (130-400) 10^3/c mm MPV 11.9 H (7.4-10.4) fL Neut % (Auto) 80.3 % Lymph % (Auto) 10.0 % [place] % (Auto) 8.1 % Eos % (Auto) 0.5 % Baso % (Auto) 0.7 % Neut # (Auto) 14.99 H (1.8-7.7) 10^3/u L Lymph # (Auto) 1.9 (0.8-4.8) 10^3/u L [place] # (Auto) 1.5 H (0.2-0.9) 10^3/u L Eos # (Auto) 0.1 (0.0-0.8) 10^3/u L Baso # (Auto) 0.1 (0.0-0.1) 10^3/u L Nucleated RBC % (a uto) 0 % Nucleated RBCs # 0.0 /100WBC Sodium 141 (136-145) mmol/L Potassium 4.0 (3.5-5.1) mmol/L Chloride 105 (98-107) mmol/L Carbon Dioxide 26 (22-29) mmol/L Anion Gap 14.0 (5-19) BUN 18 (6-20) mg/dL Creatinine 0.9 (0.5-0.9) mg/dL GFR Calculation 64.5 L (90-130) mL/min Glucose 131 H (65-115) mg/dL Calculated Osmolal ity 296 H (285-295) mOsm/k g Lactate (0.5-2.2) mmol/L Calcium 9.7 (8.5-10.5) mg/dL Total Bilirubin 0.2 (0.15-1.2) mg/dL AST 18 (0-32) U/L ALT 19 (0-33) U/L Alkaline Phosphata se 86 (35-105) IU/L Total Protein 7.3 (6.6-8.7) g/dL Albumin 4.1 (3.5-5.2) g/dL Globulin 3.2 (1.3-4.6) g/dL Lipase 46 (13-60) U/L Urine Color Yellow (Yellow) Urine Appearance Cloudy (CLEAR) Urine pH 9 H (5-7) Ur Specific Gravit y 1.015 (1.005-1.030) Urine Protein Neg (Negative) Urine Glucose (UA) Norm (Normal) Urine Ketones Negative (Negative) Urine Blood 3+ H (Negative) Urine Nitrate Negative (Negative) Urine Bilirubin Neg (Negative) Urine Urobilinogen Norm (Negative) mg/dL Ur Leukocyte Janis ase Negative (Negative) Urine RBC >100 H (0-2) /hpf Urine WBC 0-4 H (0-5) /hpf Ur Squamous Epith Cells 0-4 H (0-5) /hpf Amorphous Sediment 3+ /hpf Urine Bacteria 2+ H (NONE) /hpf 04/15/20 Range/Units 02:24 WBC (4.0-10.0) 10^3/ uL RBC (4.1-5.3) 10^6/u L Hgb (11.5-15.3) g/dL Hct (37.0-47.0) % MCV (81-99) fL MCH (28.0-34.0) pg MCHC (30.0-36.0) g/dL RDW (12.1-15.1) % Plt Count (130-400) 10^3/c mm MPV (7.4-10.4) fL Neut % (Auto) % Lymph % (Auto) % [place] % (Auto) % Eos % (Auto) % Baso % (Auto) % Neut # (Auto) (1.8-7.7) 10^3/u L Lymph # (Auto) (0.8-4.8) 10^3/u L [place] # (Auto) (0.2-0.9) 10^3/u L Eos # (Auto) (0.0-0.8) 10^3/u L Baso # (Auto) (0.0-0.1) 10^3/u L Nucleated RBC % (a uto) % Nucleated RBCs # /100WBC Sodium (136-145) mmol/L Potassium (3.5-5.1) mmol/L Chloride (98-107) mmol/L Carbon Dioxide (22-29) mmol/L Anion Gap (5-19) BUN (6-20) mg/dL Creatinine (0.5-0.9) mg/dL GFR Calculation (90-130) mL/min Glucose (65-115) mg/dL Calculated Osmolal ity (285-295) mOsm/k g Lactate 1.5 (0.5-2.2) mmol/L Calcium (8.5-10.5) mg/dL Total Bilirubin (0.15-1.2) mg/dL AST (0-32) U/L ALT (0-33) U/L Alkaline Phosphata se (35-105) IU/L Total Protein (6.6-8.7) g/dL Albumin (3.5-5.2) g/dL Globulin (1.3-4.6) g/dL Lipase (13-60) U/L Urine Color (Yellow) Urine Appearance (CLEAR) Urine pH (5-7) Ur Specific Gravit y (1.005-1.030) Urine Protein (Negative) Urine Glucose (UA) (Normal) Urine Ketones (Negative) Urine Blood (Negative) Urine Nitrate (Negative) Urine Bilirubin (Negative) Urine Urobilinogen (Negative) mg/dL Ur Leukocyte Janis ase (Negative) Urine RBC (0-2) /hpf Urine WBC (0-5) /hpf Ur Squamous Epith Cells (0-5) /hpf Amorphous Sediment /hpf Urine Bacteria (NONE) /hpf Discharge Plan Discharge Patient Disposition: Home Clinical Impression: Ureterolithiasis Condition: Stable Prescriptions: New Zofran 4 mg tablet 4 mg PO Q6H PRN (Reason: nausea and vomiting) Qty: 10 RF: 0 Percocet 7.5-325 mg tablet 1 tab PO Q6H PRN (Reason: pain) Qty: 10 RF: 0 No Action azelastine 137 mcg (0.1 %) aerosol,spray 2 spray INTRANASAL BID RF: 0 cetirizine 10 mg tablet 10 mg PO DAILY RF: 0 (DME) pen needle, diabetic 33 gauge x 5/32 needle See Rx Instructions .ROUTE .MEDSUPPLY Qty: 100 RF: 5 nitroglycerin 0.4 mg tablet, sublingual 0.4 mg SUBLINGUAL Q5M PRN (Reason: chest pain) Qty: 25 RF: 0 paroxetine HCl 20 mg tablet 20 mg PO DAILY Qty: 30 RF: 5 trazodone 50 mg tablet 50 mg PO .at bedtime Qty: 30 RF: 5 Flovent HFA 110 mcg/actuation HFA aerosol inhaler 2 puff inhalation BID Qty: 12 RF: 0 tamsulosin 0.4 mg capsule 0.4 mg PO DAILY Qty: 30 RF: 1 aspirin 81 mg tablet,delayed release (DR/EC) 81 mg PO DAILY RF: 0 lisinopril 20 mg tablet 20 mg PO DAILY Qty: 30 RF: 2 albuterol sulfate [ProAir HFA] 90 mcg/actuation HFA aerosol inhaler 2 puff INHALATION Q4H PRN (Reason: shortness of breath or wheezing) 30 Days Qty: 6.7 RF: 2 atorvastatin [Lipitor] 20 mg tablet 20 mg PO DAILY Qty: 30 RF: 2 diltiazem HCl 60 mg tablet 60 mg PO .every 12 hours Qty: 60 RF: 2 meloxicam 15 mg tablet 15 mg PO DAILY Qty: 30 RF: 2 montelukast [Singulair] 10 mg tablet 10 mg PO DAILY Qty: 30 RF: 2 sucralfate [Carafate] 1 gram tablet 1 g PO BID PRN (Reason: acid reflux) Qty: 60 RF: 2 topiramate [Topamax] 100 mg tablet 100 mg PO Q12H Qty: 60 RF: 2 epinephrine 0.3 mg/0.3 mL syringe 0.3 mg IM Q10M PRN (Reason: anaphylaxis) Qty: 2 RF: 3 Victoza 3-Sumit 0.6 mg/0.1 mL (18 mg/3 mL) pen injector 1.2 mg SUBCUT DAILY Qty: 9 RF: 1 cyanocobalamin (vitamin B-12) [Vitamin B-12] 1,000 mcg Tablet 1,000 mcg PO DAILY RF: 0 fluticasone propionate 50 mcg/actuation [place],Suspension See Rx Instructions .ROUTE .COMPLEX RF: 0 Multiple Vitamin, Womens Tablet 1 tab PO DAILY RF: 0 cholecalciferol (vitamin D3) [Vitamin D3] 25 mcg (1,000 unit) Tablet 25 mcg PO DAILY RF: 0 levocetirizine 5 mg Tablet See Rx Instructions .ROUTE .COMPLEX RF: 0 omega 5-sig-iqz-fish oil [Fish Oil] 1,000 mg (120 mg-180 mg) Capsule 1 cap PO DAILY RF: 0 vitamin E 1 cap PO DAILY RF: 0 Discharge Orders: Discharge ED (Routine); Ordered 04/15/20 Ordered By: Steven Ellis Referrals: Mary Silveira, RADIO SPORTSCASTER-C [Primary Care Provider] - Felice Castro MD [Physician] - 1-3 days Discharge Diet: Advance as tolerated and Clear Liquid Discharge Activity: Increase activity as tolerated Patient Instructions: Kidney Stones (ED) Activity Restrictions/Additional Instructions: Return for fever greater than 100, vomiting liquids or medications, worsening pain despite treatment, other concerning symptoms. Coding Level of Care Code ED Community [employer] Aide for Chg Fwd Exam Comprehensive
[2020-04-15 02:36] VITALS: RESP 16
[2020-04-15] MEDS: fentaNYL 50 mcg/mL INJ 2mL 100 MCG IVP (02:36)
[2020-04-15] MEDS: metoclopramide 5 mg/mL SDV 2 mL 10 MG IVP (02:36)
[2020-04-15] MEDS: sodium chloride 0.9% 1,000 ML 999 ML IV (02:36)
[2020-04-15 02:37] LABS: Add Urine Microscopic? YES; Bilirubin Urine Neg (Negative); Blood Urine 3+ (Negative); Glucose Urine UA Norm (Normal); Ketones Urine Negative (Negative); Leukocyte Esterase Urine Negative (Negative); Nitrate Urine Negative (Negative); Protein Urine Neg (Negative); Specific Gravity, Urine 1.015 (1.005-1.030); Urine Appearance Cloudy (CLEAR); Urine Color Yellow (Yellow); Urobilinogen Urine Norm (Negative); pH Urine 9 (5-7)
[2020-04-15 02:39] LABS: Amorphous Sediment Urine 3+ /hpf; Bacteria Urine 2+ /hpf; RBC Urine >100 /hpf (0-2); Squamous Epithelial Cell Urine 0-4 /hpf (0-5); WBC Urine 0-4 /hpf (0-5)
[2020-04-15 02:40] LABS: Add Urine Culture? Yes
[2020-04-15 02:49] LABS: Basophils # 0.1 10^3/uL (0.0-0.1); Basophils % 0.7 %; Eosinophils # 0.1 10^3/uL (0.0-0.8); Eosinophils % 0.5 %; Hematocrit 39.6 % (37.0-47.0); Hemoglobin 12.7 g/dL (11.5-15.3); Lymphocytes # 1.9 10^3/uL (0.8-4.8); Mean Corpuscular HGB Conc 32.1 g/dL (30.0-36.0); Mean Corpuscular Hemoglobin 29.3 pg (28.0-34.0); Mean Corpuscular Volume 91.5 fL (81-99); Mean Platelet Volume 11.9 fL (7.4-10.4); Monocytes # 1.5 10^3/uL (0.2-0.9); Monocytes % 8.1 %; Neutrophils # 14.99 10^3/uL (1.8-7.7); Neutrophils % 80.3 %; Nucleated Red Blood Cells % 0 %; Platelet Count 319 10^3/cmm (130-400); Red Blood Count 4.33 10^6/uL (4.1-5.3); Red Cell Distribution Width 13.1 % (12.1-15.1); White Blood Count 18.7 10^3/uL (4.0-10.0)
[2020-04-15 02:50] LABS: Lactate (Lactic Acid level) 1.5 mmol/L (0.5-2.2)
[2020-04-15 02:51] LABS: Alanine Aminotransferase 19 U/L (0-33); Albumin Level 4.1 g/dL (3.5-5.2); Alkaline Phosphatase 86 IU/L (35-105); Aspartate Amino Transferase 18 U/L (0-32); Blood Urea Nitrogen 18 mg/dL (6-20); Calcium 9.7 mg/dL (8.5-10.5); Carbon Dioxide 26 mmol/L (22-29); Chloride 105 mmol/L (98-107); Globulin 3.2 g/dL (1.3-4.6); Glomerular Filtration Rate 64.5 mL/min (90-130); Glucose 131 mg/dL (65-115); Lipase 46 U/L (13-60); Osmolality Calculated 296 mOsm/kg (285-295); Sodium 141 mmol/L (136-145); Total Bilirubin 0.2 mg/dL (0.15-1.2); Total Protein 7.3 g/dL (6.6-8.7)
[2020-04-15] MEDS: iohexol 300 mg/mL 100 mL Btl IV (03:11)
[2020-04-15 03:30] VITALS: BP 168/83; PULSE 85; RESP 17; O2SAT 100
[2020-04-15] MEDS: ketorolac 30 mg/mL INJ IVP (03:35)
[2020-04-15 04:19] VITALS: BP 123/67; PULSE 67; RESP 17; O2SAT 100
== END 2020-04-15 04:21 | disposition home or self-care (01) ==
PROVIDERS: Emergency Provider Emergency Medicine; PCP Nurse Practitioner
DX: N20.1 Calculus of ureter (principal); Z79.82 Long term (current) use of aspirin; E78.5 Hyperlipidemia, unspecified; Z87.442 Personal history of urinary calculi; I10 Essential (primary) hypertension
CPT/HCPCS: 12345; 74177; 80053; 81001; 83605; 83690; 85025; 87086; 96361; 96374; 96375; 99282; 99284; J1885; J2765; J3010; J7030; Q9967

== ENCOUNTER → 2020-04-19 11:22 | Outpatient (BNVA) | payer SELFPAY | PROVIDERS: PCP Nurse Practitioner; Visit Provider Nurse Practitioner | DX: N20.1 Calculus of ureter (principal); R31.0 Gross hematuria; N20.0 Calculus of kidney | CPT/HCPCS: 81000; 85025 ==

== ENCOUNTER 2020-04-24 09:18 | Outpatient (CLI) | payer SELFPAY ==
--- NOTE | 2020-04-24 09:00 | XRR_ITS ---
PROCEDURE INFORMATION: Exam: XR Abdomen, 1 View Exam date and time: 04/24/2020 9:25 AM Age: 59 years old Clinical indication: Condition or disease; Other: Ureterolithiasis; Prior surgery; Surgery type: Partial hystorectomy TECHNIQUE: Imaging protocol: XR of the abdomen. Views: Frontal supine view of the abdomen. 1 View. COMPARISON: CT abdomen pelvis w con* [id number] 04/15/2020 3:02 AM FINDINGS: Gastrointestinal tract: Prominent stool, in a pattern of constipation. Intraperitoneal space: Multiple punctate pelvic calcifications, the majority of which are vascular in etiology. Organs: CT detected renal and ureteral calculi are poorly delineated on radiography. Status post cholecystectomy. Bones/joints: Mild degenerative change. Other findings: Metallic zipper. XR/XR KUB [id number] IMPRESSION: 1. CT detected renal and ureteral calculi are poorly delineated on radiography. 2. Prominent stool, in a pattern of constipation.
== END 2020-04-24 09:19 | disposition home or self-care (01) ==
LOC: RAD 09:21
PROVIDERS: PCP Nurse Practitioner; Visit Provider Urology
DX: N20.1 Calculus of ureter (principal)
CPT/HCPCS: 74018; 81003; 82365; 88300

== ENCOUNTER 2020-05-18 08:52 | Outpatient (CLI) | payer SELFPAY ==
--- NOTE | 2020-05-18 08:45 | XR_ITS ---
WS: [id number] KUB, 05/18/2020 Clinical Data: UROLITHIASIS Comparison: KUB, 04/24/2020. Findings: No abnormal intraabdominal masses are seen. There is no dilatated small bowel or evidence of obstruc tion. There are phleboliths in the true pelvis. Fecal material is obscuring detail over the kidneys. There are clips in the right upper quadrant from a cholecystectomy. XR/XR KUB [id number] Impression: Numerous phleboliths in the true pelvis and a distinct ureterovesical junction calculus is not identified.
== END 2020-05-18 08:53 | disposition home or self-care (01) ==
LOC: RAD 08:55
PROVIDERS: PCP Nurse Practitioner; Visit Provider Urology
DX: N20.9 Urinary calculus, unspecified (principal); I87.8 Other specified disorders of veins
CPT/HCPCS: 74018; 81003

== ENCOUNTER → 2020-08-02 09:08 | Outpatient (BNVA) | payer MEDICARE, MEDICAID, SELFPAY | PROVIDERS: PCP Nurse Practitioner; Visit Provider Nurse Practitioner | DX: E11.69 Type 2 diabetes mellitus with other specified complication (principal); J30.89 Other allergic rhinitis; I10 Essential (primary) hypertension | CPT/HCPCS: 80053; 80061; 82043; 83036 ==

== ENCOUNTER → 2020-08-09 11:31 | Outpatient (BNVA) | payer MEDICARE, MEDICAID, SELFPAY | PROVIDERS: PCP Nurse Practitioner; Visit Provider Nurse Practitioner | DX: J30.89 Other allergic rhinitis (principal); E11.69 Type 2 diabetes mellitus with other specified complication; I10 Essential (primary) hypertension; K21.9 Gastro-esophageal reflux disease without esophagitis; J30.2 Other seasonal allergic rhinitis | CPT/HCPCS: 81000 ==

== ENCOUNTER → 2020-09-04 10:02 | Outpatient (BNVA) | payer MEDICARE, MEDICAID, SELFPAY | PROVIDERS: PCP Nurse Practitioner; Visit Provider Nurse Practitioner | DX: F33.1 Major depressive disorder, recurrent, moderate (principal) | CPT/HCPCS: 99214 ==

== ENCOUNTER → 2020-12-13 16:07 | Outpatient (BNVA) | payer OTHER, MEDICAID, SELFPAY | PROVIDERS: PCP Nurse Practitioner; Visit Provider Nurse Practitioner | DX: R30.0 Dysuria (principal) | CPT/HCPCS: 81000; 81003; 87086 ==

== ENCOUNTER → 2021-01-03 09:09 | Outpatient (BNVA) | payer OTHER, MEDICAID, SELFPAY | PROVIDERS: PCP Nurse Practitioner; Visit Provider Nurse Practitioner | DX: J02.9 Acute pharyngitis, unspecified (principal); Z20.822 Contact with and (suspected) exposure to COVID-19; J30.89 Other allergic rhinitis | CPT/HCPCS: 87071; 87635; 87880 ==

== ENCOUNTER → 2021-01-09 10:39 | Outpatient (BNVA) | payer OTHER, MEDICAID, SELFPAY | PROVIDERS: PCP Nurse Practitioner; Visit Provider Nurse Practitioner | DX: K11.1 Hypertrophy of salivary gland (principal); J30.89 Other allergic rhinitis; I10 Essential (primary) hypertension; E11.9 Type 2 diabetes mellitus without complications; E78.5 Hyperlipidemia, unspecified; Z79.899 Other long term (current) drug therapy | CPT/HCPCS: 80053; 85025 ==

== ENCOUNTER 2021-01-17 10:29 | Outpatient (CLI) | payer MEDICARE, MEDICAID, SELFPAY ==
--- NOTE | 2021-01-17 10:50 | CT_ITS ---
WS: [id number] CT NECK TECHNIQUE: Noncontrast CT of the neck with coronal and sagittal reformatted images. CLINICAL INFORMATION: K11.1 - Hypertrophy of salivary gland COMPARISON: CT neck 01/18/2020 and 08/10/2019 DLP: 910.[address] scans at [facility] use at least one of these dose optimization techniques: automated e xposure control; mA and/or kV adjustment per patient size (includes targeted exams where dose is matc hed to clinical indication); or iterative reconstruction. FINDINGS: Parotid Glands are normal. Normal submandibular glands. Normal posterior nasopharynx. Dental artifact degrades images at the tongue base. Prominent palatine tonsils otherwise normal in appearance. No in flammatory changes. Normal parapharyngeal fat. Normal vallecula and epiglottis. Normal piriform sinus .. No evidence of supraglottic or subglottic mass. Normal thyroid. Lung apices are well aerated. No cervical lymphadenopathy. Mastoid air cells are well aerated. Parana marty sinuses are well aerated. Mild spondylitic changes cervical spine. CT/CT neck wo con [id number] IMPRESSION: 1. Normal salivary glands. 2. No evidence of sialoadenitis or obstructing calculi. Beam Ibanez artifact degrades some images at the tongue base. 3. No evidence of neck mass or abscess. 4. No cervical lymphadenopathy. 5. No evidence of supraglottic or glottic mass.
== END 2021-01-17 10:30 | disposition home or self-care (01) ==
PROVIDERS: PCP Nurse Practitioner; Visit Provider Nurse Practitioner
DX: K11.1 Hypertrophy of salivary gland (principal)
CPT/HCPCS: 70490

== ENCOUNTER → 2021-01-31 09:13 | Outpatient (BNVA) | payer MEDICARE, MEDICAID, SELFPAY | PROVIDERS: PCP Nurse Practitioner; Visit Provider Nurse Practitioner | DX: J30.89 Other allergic rhinitis (principal); E11.69 Type 2 diabetes mellitus with other specified complication; N95.2 Postmenopausal atrophic vaginitis; E78.2 Mixed hyperlipidemia; M15.9 Polyosteoarthritis, unspecified; M25.562 Pain in left knee; M17.12 Unilateral primary osteoarthritis, left knee | CPT/HCPCS: 73562 ==

== ENCOUNTER → 2021-03-04 07:53 | Outpatient (BNVA) | payer MEDICARE, MEDICAID, SELFPAY | PROVIDERS: PCP Nurse Practitioner; Visit Provider Nurse Practitioner | DX: F33.1 Major depressive disorder, recurrent, moderate (principal); F41.1 Generalized anxiety disorder; M79.18 Myalgia, other site | CPT/HCPCS: 99214 ==

== ENCOUNTER 2021-03-15 08:31 | Outpatient (CLI) | payer MEDICARE, MEDICAID, SELFPAY ==
--- NOTE | 2021-03-15 08:45 | MR_ITS ---
WS: [id number] MRI LEFT KNEE NONCONTRAST TECHNIQUE: Axial PD, coronal PD fat sat, coronal PD, sagittal PD, and sagittal PD fat-sat images obta ined. CLINICAL INFORMATION: M25.562 - Pain in left knee COMPARISON: None. FINDINGS: Distal quadriceps and patella tendons are intact. Hypertrophic patella. Moderate tricompartmental art hritis with joint space narrowing. Thinning with mucoid degeneration of the ACL. Thinning of the ACL anteriorly which appears intact. Normal PCL. Normal lateral meniscus. Chronic blunting of the medial meniscus. No acute appearing meniscal tears. Advanced degenerative narrowing medial joint compartment with [id number]-td-wfyp articulation. No significa nt subchondral edema. Grade III chondromalacia involving the medial and lateral joint compartments. H ypertrophic changes along the joint line. Moderate chondromalacia patella. No subchondral edema. Medial and lateral patellar retinacula appear intact. Medial and lateral collateral ligaments are intact. Small lobulated popliteal cyst measuring 10 mm x 24 mm AP by craniocaudal. Small suprapatellar joint effusion. Mild prepatellar and infrapatel lar soft tissue edema. MR/MR knee LT wo con* [id number] IMPRESSION: 1. Chronic thinning of the ACL with mucoid degeneration which appears intact. Normal PCL. 2. Advanced narrowing medial joint compartment with hjiv-tc-ahck articulation and grade III chondromalacia. No subchondral edema. 3. Chronic blunting of the medial meniscus. No acute appearing meniscal tears. 4. Grade III chondromalacia patella. No subchondral edema. 5. Small lobulated popliteal cyst measuring 10 x 24 mm AP by craniocaudal. 6. Small suprapatellar effusion with mild prepatellar and infrapatellar subcut aneous edema. Outbridge grading: grade III: partial-thickness cartilage loss with focal ulcer ation
== END 2021-03-15 08:32 | disposition home or self-care (01) ==
LOC: RADSHAW 08:33
PROVIDERS: PCP Nurse Practitioner; Visit Provider Nurse Practitioner
DX: R60.0 Localized edema (principal); M22.42 Chondromalacia patellae, left knee; M71.22 Synovial cyst of popliteal space [Baker], left knee; M25.462 Effusion, left knee
CPT/HCPCS: 73721

== ENCOUNTER → 2021-04-18 09:51 | Outpatient (BNVA) | payer MEDICARE, MEDICAID, SELFPAY | PROVIDERS: PCP Nurse Practitioner; Visit Provider Nurse Practitioner | DX: I10 Essential (primary) hypertension (principal) | CPT/HCPCS: 80053; 80061; 84443 ==

== ENCOUNTER 2021-05-02 15:03 | Outpatient (CLI) | payer MEDICARE, MEDICAID, SELFPAY ==
--- NOTE | 2021-05-02 18:02 | ECG_ITS ---
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 Measurements Intervals Slade Rate: 68 P: 39 SD: 183 QRS: 46 QRSD: 111 T: 41 QT: 404 QTc: 430 Interpretive Statements SINUS RHYTHM MODERATE INTRAVENTRICULAR CONDUCTION DELAY [110+ ms QRS DURATION] Compared to ECG 03/13/2020 13:15:15 Intraventricular conduction delay now present Sinus tachycardia no longer present Ventricular premature complex(es) no longer present T-wave abnormality no longer present Electronically Signed On 05-02-2021 22:06:03 GRAIN ELEVATOR AGENT by Handy Ariza M.D. [email or web address]
== END 2021-05-02 15:04 | disposition home or self-care (01) ==
LOC: RT 15:08
PROVIDERS: PCP Nurse Practitioner; Visit Provider Specialist
DX: J03.81 Acute recurrent tonsillitis due to other specified organisms (principal); Z20.822 Contact with and (suspected) exposure to COVID-19
CPT/HCPCS: 87635; 93005

== ENCOUNTER 2021-05-16 07:58 | Outpatient (CLI) | payer MEDICARE, MEDICAID, SELFPAY ==
--- NOTE | 2021-05-16 08:00 | XR_ITS ---
WS: [id number] XR KUB [id number] REASON FOR EXAM: UROLITHIASIS FINDINGS: CT scan of the abdomen and pelvis 04/15/2020 demonstrated multiple right intrarenal calculi with obst ruction of the right kidney secondary to calculus in the trigone portion of the right ureter. No definite urinary tract calculi identified on the KUB of 05/18/2020. The current examination is unchanged compared to 05/18/2020. No definite intrarenal calculi or uretera l calculi. Multiple pelvic calcifications which are unchanged. XR/XR KUB [id number] IMPRESSION: No definite urinary tract calculi.
== END 2021-05-16 07:59 | disposition home or self-care (01) ==
LOC: RAD 08:00
PROVIDERS: PCP Nurse Practitioner; Visit Provider Urology
DX: N20.9 Urinary calculus, unspecified (principal)
CPT/HCPCS: 74018; 81003

== ENCOUNTER → 2021-05-28 08:54 | Outpatient (BNVA) | payer MEDICARE, MEDICAID, SELFPAY | PROVIDERS: PCP Nurse Practitioner; Visit Provider Nurse Practitioner Family | DX: Z20.822 Contact with and (suspected) exposure to COVID-19 (principal) | CPT/HCPCS: 87635 ==

== ENCOUNTER 2021-07-25 09:47 | Outpatient (CLI) | payer MEDICARE, MEDICAID, SELFPAY ==
--- NOTE | 2021-07-25 10:02 | CT_ITS ---
WS: [id number] CT NECK TECHNIQUE: Contrast-enhanced CT of the neck with coronal and sagittal reformatted images. CLINICAL INFORMATION: LOCALIZED SWELLING,MASS, LUMP, NECK COMPARISON: CT January 17, 2021 DLP: 244.[address] scans at [facility] use at least one of these dose optimization techniques: automated e xposure control; mA and/or kV adjustment per patient size (includes targeted exams where dose is matc hed to clinical indication); or iterative reconstruction. FINDINGS:Fullness and masslike soft tissue thickening involving the RIGHT pharyngoepiglottic fold ext ending to the aryepiglottic fold is new from the prior examination measuring approximately 13 x 11 mm . This is asymmetric compared to the LEFT and suspicious for underlying lesion. Recommend further charisma luation with direct visualization. Associated partial effacement of the adjacent RIGHT piriform sinus . Otherwise no evidence of supraglottic or glottic mass. A few prominent RIGHT submandibular and RIGH T jugulodigastric lymph nodes although not pathologically enlarged. Beam hardening dental artifact degrades some images. Paranasal sinuses are well aerated. Mastoid air cells well aerated. Normal parapharyngeal fat. Normal posterior nasopharynx. [place] tonsils are nor mal. Tongue base appears normal. Normal submandibular glands. Normal parotid glands. Normal glottis. Normal subglottic airway. Normal thyroid gland. No cervical lymphadenopathy.Lung apices are well aerated. Mild spondylitic changes cervical spine. CT/CT neck w con* [id number] IMPRESSION: 1. Fullness and soft tissue thickening involving the RIGHT pharyngoepiglottic fold extending to the aryepiglottic fold is new from the prior examination prabha uring approximately 13 x 11 mm. This is asymmetric compared to the LEFT suspici ous for underlying lesion. Recommend further evaluation with direct visualizati on. Associated partial effacement of the RIGHT piriform sinus. 2. Otherwise no evidence of supraglottic or glottic mass. 3. Normal salivary glands. 4. No cervical lymphadenopathy 5. No other significant findings.
[2021-07-25] MEDS: iohexol 300 mg/mL 100 mL Btl IV (10:55)
== END 2021-07-25 09:48 | disposition home or self-care (01) ==
PROVIDERS: PCP Nurse Practitioner; Visit Provider Specialist
DX: R22.1 Localized swelling, mass and lump, neck (principal)
CPT/HCPCS: 70491

== ENCOUNTER → 2021-08-27 10:49 | Outpatient (BNVA) | payer MEDICARE, MEDICAID, SELFPAY | PROVIDERS: PCP Nurse Practitioner; Visit Provider Nurse Practitioner | DX: F41.1 Generalized anxiety disorder (principal); F33.1 Major depressive disorder, recurrent, moderate; M79.18 Myalgia, other site | CPT/HCPCS: 99214 ==

== ENCOUNTER → 2021-09-04 10:56 | Outpatient (BNVA) | payer MEDICARE, MEDICAID, SELFPAY | PROVIDERS: PCP Nurse Practitioner; Visit Provider Nurse Practitioner | DX: J30.89 Other allergic rhinitis (principal); E11.69 Type 2 diabetes mellitus with other specified complication; E55.9 Vitamin D deficiency, unspecified | CPT/HCPCS: 80053; 80061; 82306; 82607; 83036; 84443; 85025 ==

== ENCOUNTER → 2021-09-10 11:24 | Outpatient (BNVA) | payer MEDICARE, MEDICAID, SELFPAY | PROVIDERS: PCP Nurse Practitioner; Visit Provider Nurse Practitioner Family | DX: R05.9 Cough, unspecified (principal); J98.8 Other specified respiratory disorders | CPT/HCPCS: 87400 ==

== ENCOUNTER 2021-09-17 08:41 | Outpatient (CLI) | payer MEDICARE, MEDICAID, SELFPAY ==
--- NOTE | 2021-09-17 08:51 | MR_ITS ---
WS: [id number] MRI NECK WITH CONTRAST TECHNIQUE: Noncontrast axial T1, axial T2 FSE fat sat, coronal T2 fat sat, coronal T1, coronal T1 fat sat, sagittal T2 fat sat, plus contrast enhanced coronal, sagittal, and axial T1 fat sat images obta ined. CLINICAL INFORMATION: NEOPLASM OF UNCERTAIN BEHAVIOR OF TONGUE/SWELLING,MASS,LUMP COMPARISON: CT neck July 25, 2021 FINDINGS: Previously described fullness involving the RIGHT inferior pharyngoepiglottic fold has resolved. No evidence of supraglottic or glottic mass today. Normal parapharyngeal fat. Normal posterior nasopharynx. Normal vallecula and piriform sinuses. Ida l glottis and subglottic airway. Normal posterior fossa. Normal vascular flow voids at the skull base. Mild mucosal thickening RIGHT m astoid tip. Paranasal sinuses are well aerated. Somewhat prominent and heterogeneous parotid glands s imilar to the prior studies. Normal submandibular glands. No cervical lymphadenopathy. Palpable marker RIGHT neck at the level of the RIGHT parotid gland. Normal underlying soft tissue. No evidence of underlying soft tissue mass or lesion. No other abnormalities in this area. Normal optic chiasm and pituitary infundibulum. Normal cavernous sinuses and Meckel's cave. Cervical spinal canal is patent. No other significant findings. MR/MR orbit face neck wo/w* [id number] IMPRESSION: 1. Previously described soft tissue thickening on the prior CT in the RIGHT ph aryngoepiglottic fold has resolved. 2. No evidence of supraglottic or glottic mass today. 3. Prominent slightly heterogeneous parotid glands bilaterally. Normal submand ibular glands. 4. No cervical lymphadenopathy. 5. Parotid gland deep to the palpable marker RIGHT neck. No underlying mass or lesion. Parotid glands are somewhat prominent and heterogeneous unchanged from the prior studies. 6. Paranasal sinuses are well aerated. Mucosal thickening RIGHT mastoid tip. 7. No other significant findings.
[2021-09-17] MEDS: gadobenate dimeglumine 20 mL vial IV (10:00)
== END 2021-09-17 08:42 | disposition home or self-care (01) ==
LOC: RAD 08:46
PROVIDERS: PCP Nurse Practitioner; Visit Provider Specialist
DX: D37.02 Neoplasm of uncertain behavior of tongue (principal); R22.1 Localized swelling, mass and lump, neck
CPT/HCPCS: 70543

== ENCOUNTER → 2021-09-19 09:05 | Outpatient (BNVA) | payer MEDICARE, MEDICAID, SELFPAY | PROVIDERS: PCP Nurse Practitioner; Visit Provider Nurse Practitioner Family | DX: R05.3 Chronic cough (principal) | CPT/HCPCS: 71046 ==

== ENCOUNTER → 2021-12-05 09:55 | Outpatient (BNVA) | payer MEDICARE, MEDICAID, SELFPAY | PROVIDERS: PCP Nurse Practitioner; Visit Provider Nurse Practitioner | DX: J30.89 Other allergic rhinitis (principal); E78.2 Mixed hyperlipidemia; I10 Essential (primary) hypertension; E11.69 Type 2 diabetes mellitus with other specified complication; M15.9 Polyosteoarthritis, unspecified; K21.9 Gastro-esophageal reflux disease without esophagitis; E55.9 Vitamin D deficiency, unspecified; G56.03 Carpal tunnel syndrome, bilateral upper limbs | CPT/HCPCS: 80053; 80061; 83036 ==

== ENCOUNTER 2021-12-25 13:47 | Outpatient (CLI) | payer MEDICARE, MEDICAID, SELFPAY ==
--- NOTE | 2021-12-25 14:11 | MM_ITS ---
WS: [id number] BILATERAL 3D TOMOSYNTHESIS DIGITAL SCREENING MAMMOGRAPHY WITH CAD CLINICAL INFORMATION: Z12.39 - Encounter for other screening for malignant neop... HISTORY: Screening mammogram. Bilateral breast tenderness COMPARISON: February 15, 2020 TECHNIQUE: Bilateral CC and MLO views. FINDINGS: Scattered fibroglandular densities bilaterally. Vascular calcification. No suspicious focal mass, asy mmetry, calcifications, or architectural distortion. No evidence of malignancy. MM/[place] [id number] IMPRESSION: BI-RADS: 2-Benign FOLLOW UP: 1 Year Follow-up Recommend return to annual screening mammography.
== END 2021-12-25 13:48 | disposition home or self-care (01) ==
LOC: RAD 13:50
PROVIDERS: PCP Nurse Practitioner; Visit Provider Nurse Practitioner
DX: Z12.31 Encounter for screening mammogram for malignant neoplasm of breast (principal)
CPT/HCPCS: 77063; 77067

== ENCOUNTER → 2022-01-21 07:57 | Outpatient (BNVA) | payer MEDICARE, MEDICAID, SELFPAY | PROVIDERS: PCP Nurse Practitioner; Referring Provider Nurse Practitioner; Visit Provider Specialist | DX: G56.03 Carpal tunnel syndrome, bilateral upper limbs (principal) | CPT/HCPCS: 95910; 95912 ==

== ENCOUNTER → 2022-02-27 14:37 | Outpatient (BNVA) | payer MEDICARE, MEDICAID, SELFPAY | PROVIDERS: PCP Nurse Practitioner; Visit Provider Nurse Practitioner | DX: J30.89 Other allergic rhinitis (principal); E78.2 Mixed hyperlipidemia; J45.909 Unspecified asthma, uncomplicated; I10 Essential (primary) hypertension; E11.69 Type 2 diabetes mellitus with other specified complication; M15.9 Polyosteoarthritis, unspecified; K21.9 Gastro-esophageal reflux disease without esophagitis; Z23 Encounter for immunization; E11.9 Type 2 diabetes mellitus without complications | CPT/HCPCS: 80053; 80061; 83036 ==

== ENCOUNTER → 2022-03-03 10:21 | Outpatient (BNVA) | payer MEDICARE, MEDICAID, SELFPAY | PROVIDERS: PCP Nurse Practitioner; Visit Provider Nurse Practitioner | DX: J30.89 Other allergic rhinitis (principal); G56.03 Carpal tunnel syndrome, bilateral upper limbs; R74.8 Abnormal levels of other serum enzymes; Z11.59 Encounter for screening for other viral diseases; R53.1 Weakness | CPT/HCPCS: 86705; 86706; 86709; 86803; 87340 ==

== ENCOUNTER → 2022-03-10 07:57 | Outpatient (BNVA) | payer MEDICARE, MEDICAID, SELFPAY | PROVIDERS: PCP Nurse Practitioner; Referring Provider Nurse Practitioner; Visit Provider Student in an Organized Health Care Education/Training Program | DX: G56.03 Carpal tunnel syndrome, bilateral upper limbs (principal) | CPT/HCPCS: 99204 ==

== ENCOUNTER 2022-03-21 06:42 | Day surgery (SDC) | payer MEDICARE, MEDICAID, SELFPAY ==
[2022-03-20 09:06] VITALS: BMI 42.7
[2022-03-21 06:48] VITALS: BP 158/89; PULSE 69; RESP 18; TEMP 36.8; O2SAT 96
--- NOTE | 2022-03-21 07:17 | ANES.PREANE2 ---
Pre-Anesthetic Assessment Height/Weight: Height 1.55 m Weight 102.512 kg O2 Del Method 03/21/22 07:09 Preop Diagnosis: Right carpal tunnel syndrome Operation Date: 03/21/22 08:15 Proposed Procedures p Carpal tunnel release of the right hand:35734 G56.03(Right) - David Wei DO Familial anesthetic complications: None Was Beta Max taken within 24 hours: N/A Was Clonidine taken within 24 hours: N/A Last intake: Intake Last Liquid Date 03/20/22 Last Liquid Time 20:30 Last Solid Date 03/20/22 Last Solid Time 20:30 Social No alcohol and No tobacco Exam alert, oriented x 3, clear to auscultation bilaterally and regular rate & rhythm Airway Mallampati: Class III Dentition: full Pulmonary Asthma (allergy induced) CV/HEM Hypertension EF 60%, Mild MVR, Grade I diastolic dysfunction on 2020 echo GI Gastroesophageal Reflux Disease Metabolic Diabetes Mellitus, Hyperlipidemia, Morbid Obesity and Thyroid Disease Musc/skel Osteoarthritis/DJD Anesthetic Plan ASA status: 3 Anesthesia: MAC Risk of > 500 ml blood loss (7ml/kg in children): No Medications/Allergies Home Medications Medication Instructions Recorded Confirmed Last Taken Type azelastine 137 mcg (0.1 %) nasal 2 spray intranasal BID 05/03/19 03/20/22 03/18/22 History spray aerosol cetirizine 10 mg tablet 10 mg PO DAILY 05/03/19 03/20/22 03/20/22 History aspirin 81 mg tablet,delayed 81 mg PO DAILY 08/01/19 03/20/22 03/20/22 History release cholecalciferol (vitamin D3) 25 25 mcg PO DAILY 01/18/20 03/20/22 03/20/22 History mcg (1,000 unit) tablet (Vitamin D3) cyanocobalamin (vitamin B-12) 1,000 mcg PO DAILY 01/18/20 03/21/22 03/07/22 History 1,000 mcg tablet (Vitamin B-12) fluticasone propionate 50 See Rx Instructions .Route .COMPLEX 01/18/20 03/20/22 03/19/22 History mcg/actuation nasal spray,suspension levocetirizine 5 mg tablet See Rx Instructions .Route .COMPLEX 01/18/20 03/21/22 03/20/22 History plvfittifuhq-Rs-xkau-minerals 1 tab PO DAILY 01/18/20 03/21/22 03/20/22 History (Multiple Vitamin, Womens tablet) vitamin E 1 cap PO DAILY 01/18/20 03/20/22 03/20/22 History nitroglycerin 0.4 mg sublingual 0.4 mg sublingual Q5M PRN chest 02/02/20 03/20/22 Unknown Rx tablet pain #25 tabs epinephrine 0.3 mg/0.3 mL 0.3 mg (0.3 mL) IM Q10M PRN 02/10/20 03/20/22 Unknown Rx injection syringe anaphylaxis #2 ea estradiol 0.01% (0.1 mg/gram) 1 g vaginal .weekly #42.5 grams 01/31/21 03/20/22 Unknown Rx vaginal cream (Estrace) albuterol sulfate 2.5 mg/3 mL 2.5 mg (3 mL) inhalation QID PRN 09/18/21 03/20/22 03/10/22 Rx (0.083 %) solution for nebulization shortness of breath or wheezing #75 mL pen needle, diabetic 33 gauge x #100 ea 12/06/21 03/13/22 Unknown Rx / biotin 10,000 mcg capsule (Finesse 10,000 mcg PO DAILY 01/21/22 03/20/22 03/18/22 History Biotin) albuterol sulfate 90 mcg/actuation 2 puff inhalation QID PRN 02/27/22 03/20/22 03/10/22 Rx aerosol inhaler (ProAir HFA) shortness of breath or wheezing #6.7 grams atorvastatin 20 mg tablet (Lipitor) 20 mg PO DAILY #90 tabs 02/27/22 03/20/22 03/20/22 Rx diltiazem HCl 60 mg tablet 60 mg PO .every 12 hours #180 tabs 02/27/22 03/20/22 03/20/22 Rx famotidine 40 mg tablet (Pepcid) 40 mg PO DAILY #90 tabs 02/27/22 03/20/22 03/20/22 Rx liraglutide 0.6 mg/0.1 mL (18 mg/3 1.2 mg (0.2 mL) SUBCUT DAILY #9 mL 02/27/22 03/20/22 03/18/22 Rx mL) subcutaneous pen injector (Victoza 3-Sumit) meloxicam 15 mg tablet 15 mg PO DAILY #90 tabs 02/27/22 03/20/22 03/20/22 Rx montelukast 10 mg tablet 10 mg PO DAILY #90 tabs 02/27/22 03/20/22 03/20/22 Rx (Singulair) valsartan 160 mg tablet (Diovan) 160 mg PO DAILY #90 tabs 02/27/22 03/20/22 03/20/22 Rx paroxetine HCl 40 mg tablet (Paxil) 40 mg PO DAILY #90 tabs 02/28/22 03/20/22 03/20/22 Rx trazodone 50 mg tablet 50 mg PO .at bedtime #90 tabs 02/28/22 03/20/22 03/20/22 Rx Allergies Allergy/AdvReac Type Severity Reaction Status Date / Time No Known Drug Allergies Allergy Unknown Unknown Verified 03/20/22 08:59 [facility] Anesthesia Medical History Allergy-induced asthma Atrophy of vulva Generalized anxiety disorder GERD (gastroesophageal reflux disease) History of kidney stones Hyperlipidemia Hypertension Insomnia Major depressive disorder, recurrent, moderate Obesity, morbid, BMI 40.0-49.9 Osteoarthritis Psychiatric care Renal calculi History of a large stone requiring ESWL but with complete resolution eventually. Encourage dietary modification for stone risk reduction. Urolithiasis Multistone Former. 13mm LEFT UPJ stone cleared with ESWL in 2018 2.5 mm RIGHT UVJ stone spontaneously passed 2020 Dietary stone risk reduction strategies employed Surgical History H/O lateral meniscus repair of right knee H/O repair of left rotator cuff H/O repair of right rotator cuff History of cholecystectomy History of left breast biopsy History of lithotripsy History of partial hysterectomy without BSO History of tonsillectomy 05/08/2021 History of tubal ligation Family History Father , AT AGE 54 Heart disease Mother Osteoarthritis Other CAD (coronary artery disease) Cancer Diabetes Hypertension Osteoporosis Rheumatoid arthritis Denies family history of Stroke Social History Smoking and tobacco status: never smoked Second hand smoke exposure: No Smoking risk assessment/counseling performed?: No Alcohol intake: never Desire information about alcohol rehabilitation?: No Counseling given: No Desire information about substance/drug rehabilitation?: No Counseling given: No Adopted: No Caregiver/support person: No Lives independently: Yes Household members: spouse Housing: House Marital status: service: No Current occupational status: disabled History of recent travel: No Current gender identity: Female Data Anesthesia Cardiac Studies: Echocardiogram Ultrasound 08/12/19
[2022-03-21] MEDS: acetaminophen 1,000 MG/100 ML PIGGYBACK 400 MG IV (07:18)
[2022-03-21] MEDS: ketorolac 30 mg/mL INJ IVP (07:18)
[2022-03-21] MEDS: sodium chloride 0.9% 1,000 ML 30 ML IV (07:18)
--- NOTE | 2022-03-21 07:50 | W.PM.OPSUD ---
Surgery/Procedure H&P Update DATE OF PROCEDURE: March 21, 2022 DATE H&P PERFORMED: 03/10/22 CHANGES TO PREVIOUS DOCUMENTATION: None PREOP DIAGNOSIS: Right carpal tunnel syndrome PRIMARY INDICATION FOR PROCEDURE: Right carpal tunnel syndrome PLANNED PROCEDURE: Operation Date: 03/21/22 08:15 Proposed Procedures p Carpal tunnel release of the right hand:15071 G56.03(Right) - David Wei DO
[2022-03-21 07:54] LABS: Glucose Point of Care 94 mg/dL (70-110)
[2022-03-21] MEDS: ceFAZolin 2,000 MG in sodium chloride 0.9% (plus) 50 ML 100 MG IV (08:00)
[2022-03-21] MEDS: lidocaine 1% INJ 20 mL 5 ML INJECTION (08:10)
[2022-03-21 08:50] VITALS: BP 168/80; PULSE 63; RESP 16; TEMP 36.4; O2SAT 99
[2022-03-21 08:55] VITALS: BP 158/74; PULSE 60; RESP 16; O2SAT 97
[2022-03-21 08:59] VITALS: BP 166/75; PULSE 62; RESP 16; TEMP 36.3; O2SAT 96
[2022-03-21 09:05] VITALS: BP 159/90; PULSE 72; RESP 16; TEMP 36.2; O2SAT 96
[2022-03-21 09:20] VITALS: BP 166/94; PULSE 73; RESP 16; O2SAT 96
[2022-03-21] MEDS: HYDROcodone-acetaminophen 5-325 mg Tablet 1 TAB PO (09:31)
--- NOTE | 2022-03-21 09:53 | PC.NURSE ---
pain medications not placed on discharge orders. called back to or and relayed this information to confirm nader did not want to order something. Dr. Wei said he did indeed want the patient to have norco 5/325 q6h prn pain. I informed the or nurse that I could not call this in myself due to it being a narcotic. Dr. Wei said that he would put in the rx when he is done with his current case. I informed the patient of this and gave her one norco 5/325 before discharge. She did state that percocet or oxycodone work better to control her pain and I told her I would pass that information on to the Dr, however it was up to his discretion what medication he prescribes.
--- NOTE | 2022-03-21 11:37 | P.OP_ITS ---
Brief Operative Note Date of procedure: 03/25/22 Pre-op diagnosis: Right carpal tunnel syndrome Post-op diagnosis: same Procedure Done: Right carpal tunnel release Surgeon: David Wei Estimated blood loss (mL): 2 Complications: None Post-op Plan: Patient taken to PACU in stable condition. Will receive appropriate discharge instructions bandage instructions as well as pain medication postoperatively. She will follow-up with me in the office in 2 weeks with plan for addressing patient's left carpal tunnel syndrome once the right side is healed. Patient understands agrees with current plan. All questions answered. She will follow- up with me in 2 weeks. Condition: stable Disposition: same day Coding Level of Care Code Acute Central Supply Nurse for Ashlee Arellano
--- NOTE | 2022-03-21 11:37 | P.OP_ITS ---
Operative Report Date of procedure: March 21, 2022 Pre-op diagnosis: Preop Diagnosis Right carpal tunnel syndrome Post-op diagnosis: Same Procedure done: Right carpal tunnel release Surgeon: David Wei DO Estimated blood loss: 2 cc 7 minutes IV fluids: See anesthesia record Complications: None Findings: See operative report narrative Condition: stable Disposition: same day Brief History: Patient was seen and worked up in the outpatient setting is a pleasant 61-year-old female with bilateral carpal tunnel syndrome. Findings consistent with this. We had detailed discussion in the office about her physical exam findings as well as her EMG findings. At this point time she does have bilateral carpal tunnel syndrome we talked about her treatment options as far as continuing with conservative management which she is failed at this point we talked about the role of corticosteroid injections and open carpal tunnel release surgery. At this point time through shared decision making she like to proceed with a right carpal tunnel release surgery with staged left carpal tunnel release surgery once her right side is healed. Through shared decision- making she understands the risk benefits complication alternatives to surgical and nonsurgical treatment options understanding these risks she agrees to proceed with surgical intervention. All questions answered at this time. Consent obtained. Procedure: Patient seen evaluated in the preoperative holding area. Consent was reviewed with patient the correct extremity was then marked. Patient was then seen evaluated by the preoperative team and anesthesia department. Once cleared for surgery she was taken back to the operative suite. She transferred to the OR table in right arm was placed on a hand table. All bony prominences well-padded. Patient was appropriately secured to the bed. Nonsterile tourniquet applied to the right upper extremity. Patient underwent anesthesia per the anesthesia department. The right upper extremity was then prepped and draped in standard orthopedic fashion. Patient received appropriate preoperative antibiotics. Final timeout performed. Esmarch tourniquet was used exsanguinate the right lower extremity insufflated to 250 mmHg. Patient then underwent local anesthetic along the planned incision site with 5 cc of lidocaine and 5 cc of ropivacaine. Once appropriately anesthetized we then made our standard 2.5 cm incision in line with the fourth ray starting at the distal extent of the incision at Crowder's cardinal line. This was then extended on the ulnar border of the fourth ray. Sharp scalpel excision was made through skin and subcutaneous tissue. I then utilized Littler dissection scissors to spread the palmar fascia. Next identified the palmaris brevis and the thick transverse carpal ligament. I utilized sharp scalpel exci piedad and feathered layer by layer until I encountered the injury of the carpal tunnel. Once this was done I then switched to dissection scissors and under direct visualization and utilizing retraction from my loan officer assistant completed my carpal release of the transverse carpal ligament distally. Once I encountered palmar fat and then stopped. The nerve was completely decompressed and this was confirmed with a [place]. Next I turned my attention proximally. I spread with my dissection scissors on top of the transverse carpal ligament and placed a Kasdan retractor proximally. Under direct visualization with loupe magnification I then incised the proximal portion of the transverse carpal ligament with complete decompression of the carpal tunnel and into the medial antebrachial fascia. My dissection scissors were curved ulnarly with care to protect and not injure the palmar cutaneous branch as well as the motor recurrent branch throughout this case. The nerve was inflamed in an hourglass s hape once this was decompressed showing signs of restriction. No masses were noted. A [place] was used to confirm complete decompression of the median nerve proximally and distally. This completed the carpal tunnel release. I released the tourniquet. Hemostasis was satisfactory with bipolar electrocautery. I then thoroughly irrigated the wound bed. And then closed the skin with interrupted mattress stitches with nylon. Patient was then dressed with Xeroform 4 x 4's and a bulky soft dressing. She was then awakened from anesthesia and taken to PACU in stable condition. Disposition: Patient taken to PACU in stable condition. Dressing clean dry and intact. Will receive appropriate discharge instructions pertaining to dressing as well as pain medication postoperatively. She will follow-up with me in the office in 2 weeks. Patient understands and agrees with current plan. All questions answered.
--- NOTE | 2022-03-21 11:37 | PM.PACU ---
PACU note Narrative: Patient seen evaluated in PACU. Recovering well. Patient received local anesthesia and still has numbing medication along the median nerve distribution. Dressings on in place clean dry and intact. She is able to wiggle her fingers without any issues. Brisk capillary refill less than 2 seconds. Compartments soft and compressible. Exam: awake Disposition: discharged
--- NOTE | 2022-03-21 12:38 | ANE.PACU2 ---
Inpatient post-anesthesia follow up: Airway intact: Yes Vital signs: Temperature 97.1 F Pulse Rate 73 Respiratory Rate 16 Blood Pressure 166/94 Pulse Oximetry 96 Oxygen Delivery Me thod Room Air Oxygen Flow Rate 5 Fraction of Inspir ed Oxygen Hydration adequate: Yes Nausea and vomiting: No Pain level: 1 Mental status: Baseline
== END 2022-03-21 09:52 | disposition home or self-care (01) ==
PROVIDERS: PCP Nurse Practitioner; Visit Provider Student in an Organized Health Care Education/Training Program
PROC: (CPT 64721; principal; 2022-03-21 08:05)
DX: G56.01 Carpal tunnel syndrome, right upper limb (principal); I10 Essential (primary) hypertension; K21.9 Gastro-esophageal reflux disease without esophagitis; E11.9 Type 2 diabetes mellitus without complications; E78.5 Hyperlipidemia, unspecified; E66.01 Morbid (severe) obesity due to excess calories; Z68.41 Body mass index [BMI] 40.0-44.9, adult
CPT/HCPCS: 64721; 36416; 82962; J0131; J0690; J1885; J2250; J2405; J2795; J3010; J7030

== ENCOUNTER → 2022-04-07 08:38 | Outpatient (BNVA) | payer MEDICARE, MEDICAID, SELFPAY | PROVIDERS: PCP Nurse Practitioner; Visit Provider Student in an Organized Health Care Education/Training Program | DX: G56.03 Carpal tunnel syndrome, bilateral upper limbs (principal) | CPT/HCPCS: 99214 ==

== ENCOUNTER → 2022-04-24 09:42 | Outpatient (BNVA) | payer MEDICARE, MEDICAID, SELFPAY | PROVIDERS: PCP Nurse Practitioner; Visit Provider Nurse Practitioner Family | DX: M79.641 Pain in right hand (principal); L30.9 Dermatitis, unspecified | CPT/HCPCS: 99213 ==

== ENCOUNTER 2022-05-09 11:37 | Day surgery (SDC) | payer MEDICARE, MEDICAID, SELFPAY ==
[2022-05-08 16:11] VITALS: BMI 41.5
[2022-05-09] VITALS (8 sets, daily range): BP systolic 91–152; BP diastolic 62–87; PULSE 58–74; RESP 16–18; TEMP 36.6–37.4; O2SAT 96–98
[2022-05-09] MEDS: sodium chloride 0.9% 1,000 ML 30 ML IV (12:18)
[2022-05-09] MEDS: acetaminophen 1,000 MG/100 ML PIGGYBACK 400 MG IV (12:18)
[2022-05-09] MEDS: ketorolac 30 mg/mL INJ IVP (12:20)
--- NOTE | 2022-05-09 12:20 | P.HP_ITS ---
Same Day Surgery H&P Indication for Procedure/HPI DATE OF PROCEDURE: May 09, 2022 CHIEF COMPLAINT/INDICATIONFOR SURGICAL PROCEDURE: Left carpal tunnel syndrome PREOP DIAGNOSIS: left carpal tunnel syndrome PLANNED PROCEDURE: Operation Date: 05/09/22 12:00 Proposed Procedures p left wrist carpal tunnel release 56844,G56.02(Left) - David Wei DO This is an established 61 year old female patient, has had right carpal tunnel release surgery on DOS:03/21/22. She is doing well and incision is clean and intact, healed well.? Patient signs symptoms has resolved.? At this point time her left carpal tunnel has begun flaring up and giving her more issues and she like to get this taken care of as well. She is here today for surgical intervention of left carpal tunnel release. No change since prior office visit. Medications/Allergies* Home Medications Medication Instructions Recorded Confirmed Type azelastine 137 mcg (0.1 %) nasal 2 spray intranasal BID 05/03/19 05/09/22 History spray aerosol cetirizine 10 mg tablet 10 mg PO DAILY 05/03/19 05/09/22 History aspirin 81 mg tablet,delayed 81 mg PO DAILY 08/01/19 05/09/22 History release cholecalciferol (vitamin D3) 25 25 mcg PO DAILY 01/18/20 05/09/22 History mcg (1,000 unit) tablet (Vitamin D3) cyanocobalamin (vitamin B-12) 1,000 mcg PO DAILY 01/18/20 05/09/22 History 1,000 mcg tablet (Vitamin B-12) fluticasone propionate 50 See Rx Instructions .Route .COMPLEX 01/18/20 05/08/22 History mcg/actuation nasal spray,suspension levocetirizine 5 mg tablet See Rx Instructions .Route .COMPLEX 01/18/20 05/09/22 History tbchspxenofy-Mw-kxlo-minerals 1 tab PO DAILY 01/18/20 05/08/22 History (Multiple Vitamin, Womens tablet) vitamin E 1 cap PO DAILY 01/18/20 05/09/22 History Allergies/Adverse Reactions Allergy/AdvReac Type Severity Reaction Status Date / Time No Known Drug Allergies Allergy Unknown Unknown Verified 05/08/22 16:06 Current Medications: Generic Name Dose Route Start Last Admin Trade Name Freq PRN Reason Stop Dose Admin Sodium Chloride 1,000 mls @ 30 mls/hr 05/09/22 12:00 05/09/22 12:18 Sodium Chloride 0.9% IV 05/10/22 11:59 30 mls/hr .Q24H ELVIA Administration Pertinent History/Comorbid Conditions* Medical History (Updated 04/24/22 @ 10:03 by JACK Reyes) Allergy-induced asthma Atrophy of vulva Carpal tunnel syndrome of left wrist Generalized anxiety disorder GERD (gastroesophageal reflux disease) History of kidney stones Hyperlipidemia Hypertension Insomnia Major depressive disorder, recurrent, moderate Obesity, morbid, BMI 40.0-49.9 Osteoarthritis Psychiatric care Renal calculi History of a large stone requiring ESWL but with complete resolution eventually. Encourage dietary modification for stone risk reduction. Right carpal tunnel syndrome Urolithiasis Multistone Former. 13mm LEFT UPJ stone cleared with ESWL in 2018 2.5 mm RIGHT UVJ stone spontaneously passed 2020 Dietary stone risk reduction strategies employed Surgical History (Updated 05/17/21 @ 10:27 by JACK Olmstead-C) H/O lateral meniscus repair of right knee H/O repair of left rotator cuff H/O repair of right rotator cuff History of cholecystectomy History of left breast biopsy History of lithotripsy History of partial hysterectomy without BSO History of tonsillectomy 05/08/2021 History of tubal ligation Family History (Updated 08/01/19 @ 13:04 by Anne Marie dEwards LPN) Father, AT AGE 54 Rheumatoid arthritis Diabetes Osteoporosis CAD (coronary artery disease) Heart disease Father Osteoarthritis Mother Cancer Hypertension Denies family history of Stroke Social History Smoking and tobacco status: never smoked Second hand smoke exposure: No Smoking risk assessment/counseling performed?: No Alcohol intake: never Desire information about alcohol rehabilitation?: No Counseling given: No Desire information about substance/drug rehabilitation?: No Counseling given: No Adopted: No Caregiver/support person: No Lives independently: Yes Household members: spouse Housing: House Marital status: service: No Current occupational status: disabled History of recent travel: No Current gender identity: Female Pertinent Exam Findings alert, oriented x 3, operative site marked and procedure specific exam findings Examination left upper extremity= sensation intact to touch? ulnar and radial distribution,? Positive median nerve compression test, Positive Tinel's at the carpal tunnel, positive Phalen's.? Negative Tinel's at the cubital tunnel Recommendations Surgery/Procedure today Other Plans: Plan for or today for left carpal tunnel release surgery. Understands all risk benefits complications alternatives to surgical nonsurgical treatment options. Understanding the wrist she agrees to proceed with surgical intervention. 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
[2022-05-09 12:23] LABS: Glucose Point of Care 103 mg/dL (70-110)
[2022-05-09] MEDS: ceFAZolin 2,000 MG in sodium chloride 0.9% (plus) 50 ML 100 MG IV (12:35)
--- NOTE | 2022-05-09 12:52 | P.ANESASSM_ITS ---
Pre-Anesthetic Assessment Height/Weight: Height 1.55 m Weight 99.79 kg Temp Pulse Resp BP Pulse Ox O2 Del Method 99.4 F 61 18 148/85 97 05/09/22 12:03 05/09/22 12:03 05/09/22 12:03 05/09/22 12:03 05/09/22 12:03 05/09/22 12:03 Preop Diagnosis: left carpal tunnel syndrome Operation Date: 05/09/22 12:00 Proposed Procedures p left wrist carpal tunnel release [id number],G56.02(Left) - David [place], Familial anesthetic complications: none Was Beta Max taken within 24 hours: N/A Was Clonidine taken within 24 hours: N/A Last intake: Intake Last Liquid Date 05/09/22 Last Liquid Time 08:00 Last Solid Date 05/08/22 Last Solid Time 20:00 Social No alcohol and No tobacco Exam alert, oriented x 3, clear to auscultation bilaterally and regular rate & rhythm Airway Submandibular: within normal limits Cervical ROM: within normal limits Mallampati: Class II Dentition: full Pulmonary Asthma CV/HEM Coronary Artery Disease and Hypertension GI Gastroesophageal Reflux Disease Metabolic Hyperlipidemia and Morbid [place] [facility] [place] [facility] Osteoarthritis/DJD Neuropsych Anxiety and Depression Anesthetic Plan ASA status: 3 Anesthesia: MAC Medications/Allergies Home Medications Medication Instructions Recorded Confirmed Last Taken Type azelastine 137 mcg (0.1 %) nasal 2 spray intranasal BID 05/03/19 05/09/22 05/05/22 History spray aerosol cetirizine 10 mg tablet 10 mg PO DAILY 05/03/19 05/09/22 05/08/22 History aspirin 81 mg tablet,delayed 81 mg PO DAILY 08/01/19 05/09/22 05/07/22 History release cholecalciferol (vitamin D3) 25 25 mcg PO DAILY 01/18/20 05/09/22 05/08/22 History mcg (1,000 unit) tablet (Vitamin D3) cyanocobalamin (vitamin B-12) 1,000 mcg PO DAILY 01/18/20 05/09/22 05/01/22 History 1,000 mcg tablet (Vitamin B-12) fluticasone propionate 50 See Rx Instructions .Route .COMPLEX 01/18/20 05/08/22 03/19/22 History mcg/actuation nasal spray,suspension levocetirizine 5 mg tablet See Rx Instructions .Route .COMPLEX 01/18/20 05/09/22 05/08/22 History aymsvubuncqp-Yi-lylz-minerals 1 tab PO DAILY 01/18/20 05/08/22 03/20/22 History (Multiple Vitamin, Womens tablet) vitamin E 1 cap PO DAILY 01/18/20 05/09/22 05/08/22 History nitroglycerin 0.4 mg sublingual 0.4 mg sublingual Q5M PRN chest 02/02/20 05/09/22 Unknown Rx tablet pain #25 tabs epinephrine 0.3 mg/0.3 mL 0.3 mg (0.3 mL) IM Q10M PRN 02/10/20 05/08/22 Unknown Rx injection syringe anaphylaxis #2 ea estradiol 0.01% (0.1 mg/gram) 1 g vaginal .weekly #42.5 grams 01/31/21 05/08/22 Unknown Rx vaginal cream (Estrace) albuterol sulfate 2.5 mg/3 mL 2.5 mg (3 mL) inhalation QID PRN 09/18/21 05/08/22 03/10/22 Rx (0.083 %) solution for nebulization shortness of breath or wheezing #75 mL pen needle, diabetic 33 gauge x #100 ea 12/06/21 05/06/22 Unknown Rx albuterol sulfate 90 mcg/actuation 2 puff inhalation QID PRN 02/27/22 05/08/22 03/10/22 Rx aerosol inhaler (ProAir HFA) shortness of breath or wheezing #6.7 grams atorvastatin 20 mg tablet (Lipitor) 20 mg PO DAILY #90 tabs 02/27/22 05/09/22 05/07/22 Rx diltiazem HCl 60 mg tablet 60 mg PO .every 12 hours #180 tabs 02/27/22 05/09/22 05/09/22 Rx famotidine 40 mg tablet (Pepcid) 40 mg PO DAILY #90 tabs 02/27/22 05/09/22 05/08/22 Rx liraglutide 0.6 mg/0.1 mL (18 mg/3 1.2 mg (0.2 mL) SUBCUT DAILY #9 mL 02/27/22 05/09/22 05/06/22 Rx mL) subcutaneous pen injector (Victoza 3-Sumit) meloxicam 15 mg tablet 15 mg PO DAILY #90 tabs 02/27/22 05/09/22 05/08/22 Rx montelukast 10 mg tablet 10 mg PO DAILY #90 tabs 02/27/22 05/09/22 05/08/22 Rx (Singulair) valsartan 160 mg tablet (Diovan) 160 mg PO DAILY #90 tabs 02/27/22 05/09/22 05/08/22 Rx paroxetine HCl 40 mg tablet (Paxil) 40 mg PO DAILY #90 tabs 02/28/22 05/09/22 05/08/22 Rx trazodone 50 mg tablet 50 mg PO .at bedtime #90 tabs 02/28/22 05/09/22 05/08/22 Rx hydrocodone 5 mg-acetaminophen 325 1 tab PO Q6H PRN pain 7 days #28 05/09/22 Unknown Rx mg tablet tabs Allergies Allergy/AdvReac Type Severity Reaction Status Date / Time No Known Drug Allergies Allergy Unknown Unknown Verified 05/08/22 16:06 Current Medications Generic Name Dose Route Start Last Admin Trade Name Freq PRN Reason Stop Dose Admin Sodium Chloride 1,000 mls @ 30 mls/hr 05/09/22 12:00 05/09/22 12:18 Sodium Chloride 0.9% IV 05/10/22 11:59 30 mls/hr .Q24H ELVIA Administration PFSH Anesthesia Medical History Allergy-induced asthma Atrophy of vulva Carpal tunnel syndrome of left wrist Generalized anxiety disorder GERD (gastroesophageal reflux disease) History of kidney stones Hyperlipidemia Hypertension Insomnia Major depressive disorder, recurrent, moderate Obesity, morbid, BMI 40.0-49.9 Osteoarthritis Psychiatric care Renal calculi History of a large stone requiring ESWL but with complete resolution eventually. Encourage dietary modification for stone risk reduction. Right carpal tunnel syndrome Urolithiasis Multistone Former. 13mm LEFT UPJ stone cleared with ESWL in 2018 2.5 mm RIGHT UVJ stone spontaneously passed 2020 Dietary stone risk reduction strategies employed Surgical History H/O lateral meniscus repair of right knee H/O repair of left rotator cuff H/O repair of right rotator cuff History of cholecystectomy History of left breast biopsy History of lithotripsy History of partial hysterectomy without BSO History of tonsillectomy 05/08/2021 History of tubal ligation Family History Father , AT AGE 54 Heart disease Mother Osteoarthritis Other CAD (coronary artery disease) Cancer Diabetes Hypertension Osteoporosis Rheumatoid arthritis Denies family history of Stroke Social History Smoking and tobacco status: never smoked Second hand smoke exposure: No Smoking risk assessment/counseling performed?: No Alcohol intake: never Desire information about alcohol rehabilitation?: No Counseling given: No Desire information about substance/drug rehabilitation?: No Counseling given: No Adopted: No Caregiver/support person: No Lives independently: Yes Household members: spouse Housing: House Marital status: service: No Current occupational status: disabled History of recent travel: No Current gender identity: Female Data Anesthesia Cardiac Studies: Echocardiogram Ultrasound 08/12/19
[2022-05-09] MEDS: lidocaine 2% INJ 20 mL 5 ML INJECTION (13:01)
--- NOTE | 2022-05-09 13:14 | P.OP_ITS ---
Brief Operative Note Date of procedure: 05/13/22 Pre-op diagnosis: Left carpal tunnel syndrome Post-op diagnosis: same Procedure Done: Left carpal tunnel release Surgeon: David Wei Estimated blood loss (mL): 2 Complications: None Post-op Plan: Patient taken to PACU in stable condition recovering well. Patient will receive appropriate discharge instructions as well as pain medication. She will follow- up with me in the office in 2 weeks. All questions answered. Condition: stable Disposition: same day Coding Level of Care Code Acute Mems Process Engineer for Ashlee Arellano
--- NOTE | 2022-05-09 13:14 | PM.PACU ---
PACU note Narrative: Patient taken to PACU in stable condition. Patient will have well. Soft dressing on in place and clean dry and intact. Patient is able to wiggle fingers fingertips warm well-perfused brisk capillary refill less than 2 seconds. Patient does have decreased sensation secondary to local anesthesia. Exam: awake Disposition: discharged
--- NOTE | 2022-05-09 13:14 | PM.OP ---
Operative Report Date of procedure: May 09, 2022 Pre-op diagnosis: Preop Diagnosis left carpal tunnel syndrome Post-op diagnosis: Same Procedure done: Left carpal tunnel release Surgeon: David Wei DO Estimated blood loss: 2mL 7 minutes IV fluids: See anesthesia record Complications: None Findings: See operative report narrative Condition: stable Disposition: same day Brief History: Patient is a 61-year-old female who has been worked up in the outpatient setting for bilateral carpal tunnel syndrome. Physical exam findings as well as EMG/nerve conduction studies confirm diagnosis. Patient is already underwent a right carpal tunnel release surgery. She has been satisfied with her results. We saw her up in follow-up for her right carpal tunnel release surgery and at this point time given she already had the severe median nerve entrapment at the wrist for the left arm that was noted on EMG we talked about treatment options and ultimately she like to proceed with surgical intervention for her left carpal tunnel with a left carpal tunnel release. Talked about treatment options as far as continuing nonoperative versus operative intervention. Given the severity on EMG findings as well as on physical examination would recommend surgical intervention. Through shared decision making we agreed to proceed with surgery. All questions answered at this time. Detail out the risk benefits complication alternatives surgical nonsurgical treatment options. Patient elects to proceed with surgery. Consent was reviewed and signed with patient in office. Procedure: Patient seen and evaluated in the preoperative holding area. Consent was reviewed and signed with patient. Correct extremity was marked. Patient was seen evaluated by the anesthesia department once cleared for surgery was brought back to the operative suite. Placement was placed onto the OR table in supine position all bony prominences were well-padded patient properly secured to the bed. Left upper extremity was then placed onto an armboard. A nonsterile tourniquet was applied to the left upper arm. Patient then underwent anesthesia per the anesthesia department. Patient's left upper extremity was then prepped and draped in standard orthopedic fashion. Final timeout performed. Patient received appropriate preoperative antibiotics. Under sterile aseptic technique patient received local anesthesia over the preplanned carpal tunnel incision site. Esmarch tourniquet was used exsanguinate the left upper extremity and tourniquet was insufflated to 250 mmHg. A standard mini open carpal tunnel incision was made. Starting distally at Crowder's cardinal line in line with the fourth ray extending proximally distal to the wrist crease. Sharp scalpel incision was made through skin and subcutaneous tissue. Self-retaining retractor was placed and the palmar fascia was identified. This was then split longitudinally and direct visualization of the transverse carpal ligament was then made. I then utilizing scalpel feathered through the transverse carpal ligament until I entered the floor of the transverse carpal tunnel ligament into the carpal tunnel. Next I switched to dissection scissors and completed my release of the transverse carpal ligament distally with care to protect the recurrent motor branch. I completely released into the palmar fat and no entrapment was noted distally. Care was made to protect the superficial palmar arch during my distal dissection. Next I then placed a [place] underneath the transverse carpal tunnel ligament to protect the contents of the carpal tunnel and subsequently utilizing dissection scissors under loupe magnification completely released the transverse carpal ligament proximally into the median antebrachial fascia. Care was made to protect the palmar cutaneous branch by keeping my scissors curved ulnarly. Once completely released, I then placed my [place] and had appropriate decompression of the carpal tunnel proximally as well as distally. I then inspected the contents of the carpal tunnel which showed an hourglass shape of the median nerve showing its compression. No masses were noted. Tendons appeared healthy. Wound was then thoroughly irrigated. Tourniquet deflated. Hemostasis satisfactory with bipolar electrocautery. I then closed the incision with interrupted nylon stitches. Xeroform 4 x 4's and a bulky soft dressing was applied to the left upper extremity. Patient was then awakened from anesthesia and taken to PACU in stable condition. Patient tolerated procedure without complications. Disposition: Patient taken to PACU in stable condition recovering well. Dressing clean dry and intact. Patient will receive appropriate discharge instructions as well as pain medication postoperatively. Patient to follow-up with me in the office in 2 weeks. They understand they may be weightbearing as tolerated to the left hand. Patient should keep incision clean dry and intact. Patient understands if any questions or concerns he may contact the office.
--- NOTE | 2022-05-09 14:47 | ANE.PACU2 ---
Inpatient post-anesthesia follow up: Airway intact: Yes Vital signs: Temperature 97.9 F Pulse Rate 74 Respiratory Rate 16 Blood Pressure 118/72 Pulse Oximetry 98 Oxygen Delivery Me thod Room Air Oxygen Flow Rate Fraction of Inspir ed Oxygen Hydration adequate: Yes Nausea and vomiting: No Pain level: 2 Mental status: Baseline
== END 2022-05-09 14:20 | disposition home or self-care (01) ==
PROVIDERS: PCP Nurse Practitioner; Visit Provider Student in an Organized Health Care Education/Training Program
PROC: (CPT 64721; principal; 2022-05-09 11:50)
DX: G56.02 Carpal tunnel syndrome, left upper limb (principal); J45.909 Unspecified asthma, uncomplicated; I25.10 Atherosclerotic heart disease of native coronary artery without angina pectoris; I10 Essential (primary) hypertension; K21.9 Gastro-esophageal reflux disease without esophagitis; E78.5 Hyperlipidemia, unspecified; E66.01 Morbid (severe) obesity due to excess calories; Z68.41 Body mass index [BMI] 40.0-44.9, adult; F41.9 Anxiety disorder, unspecified; F32.A Depression, unspecified; M19.90 Unspecified osteoarthritis, unspecified site
CPT/HCPCS: 64721; 36416; 82962; J0131; J0690; J1885; J2704; J2795; J3010; J7030

== ENCOUNTER → 2022-05-20 10:36 | Outpatient (BNVA) | payer MEDICARE, MEDICAID, SELFPAY | PROVIDERS: PCP Nurse Practitioner; Visit Provider Nurse Practitioner | DX: E11.69 Type 2 diabetes mellitus with other specified complication (principal) | CPT/HCPCS: 80053; 80061; 82043; 83036 ==

== ENCOUNTER → 2022-05-30 13:36 | Outpatient (BNVA) | payer MEDICARE, MEDICAID, OTHER, SELFPAY | PROVIDERS: PCP Nurse Practitioner; Visit Provider Student in an Organized Health Care Education/Training Program | DX: G56.02 Carpal tunnel syndrome, left upper limb (principal) | CPT/HCPCS: 99024 ==

== ENCOUNTER 2022-06-11 09:52 | Emergency (ER) | payer MEDICARE, MEDICAID, SELFPAY ==
[2022-06-11 09:56] VITALS: BP 178/48; PULSE 93; RESP 14; TEMP 37.4; O2SAT 98; BMI 42.5
--- NOTE | 2022-06-11 10:19 | W.ED.EAR ---
HPI - Ear Problem General: Chief complaint: General Medical Stated complaint: ear infections Time Seen by Provider: 06/11/22 09:56 Source: patient Mode of arrival: ambulatory Limitations: no limitations History of Present Illness: Patient is a nice 61-year-old female who presents to ED today with complaints of bilateral ear pain and drainage and muffled hearing. Patient states she has been being seen for allergies. She was recently placed on steroids for this. She states a longstanding history of allergies. She has been using Afrin nose spray x2 weeks for her nasal congestion. MD Complaint: ear pain and ear discharge Location: bilateral Duration: constant Severity: moderate Relieving factors: nothing Exacerbating factors: nothing Discharge from ear: yes - clear and yes - bloody Associated symptoms: Reports ear or mastoid pain; Denies fever(s), headache(s) or neck pain Treatment prior to arrival: none Review of Systems Const: Denies: fever(s), chills, body aches, fatigue or malaise Eyes: Denies: change in vision, photophobia, eye discharge, floaters or seeing flashes ENMT: Reports: ear or mastoid pain, ear discharge, nasal discharge, nasal congestion and sinus pain; Denies: throat pain, odynophagia or epistaxis GI: Denies: nausea or vomiting Musc: Denies: neck pain Skin/Breast: Denies: rash Neuro: Denies: headache(s) or dizziness PFS ED PFSH: Medical History Allergy-induced asthma Atrophy of vulva Carpal tunnel syndrome of left wrist Generalized anxiety disorder GERD (gastroesophageal reflux disease) History of kidney stones Hyperlipidemia Hypertension Insomnia Insomnia Major depressive disorder, recurrent, moderate Obesity, morbid, BMI 40.0-49.9 Osteoarthritis Psychiatric care Renal calculi History of a large stone requiring ESWL but with complete resolution eventually. Encourage dietary modification for stone risk reduction. Right carpal tunnel syndrome Urolithiasis Multistone Former. 13mm LEFT UPJ stone cleared with ESWL in 2018 2.5 mm RIGHT UVJ stone spontaneously passed 2020 Dietary stone risk reduction strategies employed Surgical History H/O lateral meniscus repair of right knee H/O repair of left rotator cuff H/O repair of right rotator cuff History of cholecystectomy History of left breast biopsy History of lithotripsy History of partial hysterectomy without BSO History of tonsillectomy 05/08/2021 History of tubal ligation Family History Father , AT AGE 54 Heart disease Mother Osteoarthritis Other CAD (coronary artery disease) Cancer Diabetes Hypertension Osteoporosis Rheumatoid arthritis Denies family history of Stroke Social History Smoking and tobacco status: never smoked Second hand smoke exposure: No Smoking risk assessment/counseling performed?: No Alcohol intake: never Desire information about alcohol rehabilitation?: No Counseling given: No Desire information about substance/drug rehabilitation?: No Counseling given: No Adopted: No Caregiver/support person: No Lives independently: Yes Household members: spouse Housing: House Marital status: service: No Current occupational status: disabled History of recent travel: No Current gender identity: Female Physical Exam Const: COMMON NORMALS: no acute distress, patient oriented x3, no limitations, alert and well nourished HENMT: COMMON NORMALS: normocephalic, atraumatic and Normal external nose present HEAD & SCALP: normal to inspection, normocephalic and atraumatic FACE & SINUS: sinus tenderness NOSE: Normal external nose present and Other nasal findings present (nasal congestion) EXTERNAL EAR: Yes no periauricular adenopathy EXTERNAL AUDITORY CANAL: Abnormal EAC present EAC laterality: bilateral otic discharge TYMPANIC MEMBRANE: TM abnormal (R TM is erythematous, bulging, and appears perforated w/ bloody otic fluid) TM laterality: bilateral (L TM unable to be visualized secondary to fluid in EAC; frothy fluid noted) and unable to visualize TM (R) Neuro: COMMON NORMALS: patient oriented x3 SENSORIUM/ORIENTATION: Yes alert Course Vital Signs: Vital signs: Vital Signs Temperature 99.3 F 06/11/22 09:56 Pulse Rate 93 06/11/22 09:56 Respiratory Rate 14 06/11/22 09:56 Blood Pressure 178/48 06/11/22 09:56 Pulse Oximetry 98 06/11/22 09:56 Oxygen Delivery Me thod 06/11/22 09:56 MDM - Ear Medical Decision Making Will place patient on oral antibiotics as well as otic drops. Counseled patient on rhinitis medicamentosa related to her Afrin use. Patient is an established patient of Dr. Ann. Recommend she follow-up with their office in 3 to 5 days for reevaluation. Discharge Plan Discharge Patient Disposition: Home Clinical Impression: Acute otitis media of right ear with perforation, Ear discharge of left ear Condition: Stable Prescriptions: New cefdinir 300 mg capsule 300 mg PO BID 10 Days Qty: 20 0RF Ciprodex 0.3-0.1 % drops,suspension 4 drp otic (ear) BID 7 Days Qty: 7.5 0RF No Action azelastine 137 mcg (0.1 %) aerosol,spray 2 spray INTRANASAL BID cetirizine 10 mg tablet 10 mg PO DAILY nitroglycerin 0.4 mg tablet, sublingual 0.4 mg SUBLINGUAL Q5M PRN (Reason: chest pain) Qty: 25 0RF Rx Instructions: do not exceed 3 doses per episode aspirin 81 mg tablet,delayed release (DR/EC) 81 mg PO DAILY estradiol [Estrace] 0.01 % (0.1 mg/gram) cream 1 g vaginal .weekly Qty: 42.5 2RF paroxetine HCl [Paxil] 40 mg tablet 40 mg PO DAILY Qty: 90 0RF trazodone 50 mg tablet 75 mg PO .at bedtime Qty: 135 0RF albuterol sulfate 2.5 mg /3 mL (0.083 %) solution for nebulization 2.5 mg inhalation QID PRN (Reason: shortness of breath or wheezing) Qty: 75 2RF albuterol sulfate [ProAir HFA] 90 mcg/actuation HFA aerosol inhaler 2 puff inhalation QID PRN (Reason: shortness of breath or wheezing) Qty: 6.7 2RF atorvastatin [Lipitor] 20 mg tablet 20 mg PO DAILY Qty: 90 0RF diltiazem HCl 60 mg tablet 60 mg PO .every 12 hours Qty: 180 0RF famotidine [Pepcid] 40 mg tablet 40 mg PO DAILY Qty: 90 0RF Victoza 3-Sumit 0.6 mg/0.1 mL (18 mg/3 mL) pen injector 1.2 mg SUBCUT DAILY Qty: 9 2RF meloxicam 15 mg tablet 15 mg PO DAILY Qty: 90 0RF montelukast [Singulair] 10 mg tablet 10 mg PO DAILY Qty: 90 0RF valsartan [Diovan] 160 mg tablet 160 mg PO DAILY Qty: 90 0RF prednisone 5 mg tablet 5 mg PO DAILY Qty: 10 0RF epinephrine 0.3 mg/0.3 mL syringe 0.3 mg IM Q10M PRN (Reason: anaphylaxis) Qty: 2 3RF Rx Instructions: for 2 doses (DME) pen needle, diabetic 33 gauge x 5/32 needle See Rx Instructions .ROUTE .MEDSUPPLY Qty: 100 5RF Rx Instructions: 1 daily aytrpvzh-xfppmevjn-RI 3.5-10,000-1 mg/mL-unit/mL-% drops,suspension 4 drp otic (ear) TID 10 Days Qty: 10 0RF cyanocobalamin (vitamin B-12) [Vitamin B-12] 1,000 mcg Tablet 1,000 mcg PO DAILY fluticasone propionate 50 mcg/actuation [place],Suspension See Rx Instructions .ROUTE .COMPLEX Rx Instructions: intranasally USE DIRECTED. Multiple Vitamin, Womens Tablet 1 tab PO DAILY cholecalciferol (vitamin D3) [Vitamin D3] 25 mcg (1,000 unit) Tablet 25 mcg PO DAILY levocetirizine 5 mg Tablet See Rx Instructions .ROUTE .COMPLEX Rx Instructions: mg USE DIRECTED. vitamin E 1 cap PO DAILY Discharge Orders: Discharge ED (Routine); Ordered 06/11/22 Ordered By: Stacie Carr Referrals: Mary Silveira, KATHERINEC [Primary Care Provider] - Activity Restrictions/Additional Instructions: As we discussed please contact your ENT provider Dr. Saleh schedule follow-up visit. Coding Level of Care Code ED Veterinary Technologist for Ashlee Arellano
== END 2022-06-11 10:53 | disposition home or self-care (01) ==
PROVIDERS: Emergency Provider Physician Assistant; PCP Nurse Practitioner
DX: H66.91 Otitis media, unspecified, right ear (principal); H72.91 Unspecified perforation of tympanic membrane, right ear; H92.12 Otorrhea, left ear
CPT/HCPCS: 99284

== ENCOUNTER → 2022-07-10 09:05 | Outpatient (BNVA) | payer MEDICARE, MEDICAID, SELFPAY | PROVIDERS: PCP Nurse Practitioner; Visit Provider Nurse Practitioner | DX: J30.89 Other allergic rhinitis (principal); E11.69 Type 2 diabetes mellitus with other specified complication; M25.571 Pain in right ankle and joints of right foot; M25.572 Pain in left ankle and joints of left foot; M79.671 Pain in right foot; M79.672 Pain in left foot | CPT/HCPCS: 73630 ==

== ENCOUNTER → 2022-07-14 14:54 | Outpatient (BNVA) | payer MEDICARE, MEDICAID, SELFPAY | PROVIDERS: PCP Nurse Practitioner; Visit Provider Podiatrist Foot & Ankle Surgery | DX: M24.573 Contracture, unspecified ankle (principal); M72.2 Plantar fascial fibromatosis; M19.071 Primary osteoarthritis, right ankle and foot | CPT/HCPCS: 99204 ==

== ENCOUNTER 2022-07-30 15:50 | Outpatient (CLI) | payer MEDICARE, MEDICAID, SELFPAY | END 2022-07-30 15:51 | disposition home or self-care (01) | LOC: SPT 15:51 | PROVIDERS: PCP Nurse Practitioner; Visit Provider Podiatrist Foot & Ankle Surgery | DX: Z46.89 Encounter for fitting and adjustment of other specified devices (principal); M72.2 Plantar fascial fibromatosis; M24.573 Contracture, unspecified ankle; M19.071 Primary osteoarthritis, right ankle and foot; E11.9 Type 2 diabetes mellitus without complications | CPT/HCPCS: 97760; 99213; L4397 ==

== ENCOUNTER → 2022-09-02 12:48 | Outpatient (BNVA) | payer MEDICARE, MEDICAID, SELFPAY | PROVIDERS: PCP Nurse Practitioner; Visit Provider Podiatrist Foot & Ankle Surgery | DX: M72.2 Plantar fascial fibromatosis (principal); M76.62 Achilles tendinitis, left leg; M24.573 Contracture, unspecified ankle | CPT/HCPCS: 99213 ==

== ENCOUNTER 2022-09-17 09:04 | Outpatient (CLI) | payer MEDICARE, MEDICAID, SELFPAY ==
--- NOTE | 2022-09-17 09:22 | MR_ITS ---
WS: [id number] MRI HEAD WITH CONTRAST WITH ATTENTION TO THE INTERNAL AUDITORY CANALS TECHNIQUE: Sagittal T1, T2 axial, T2 axial flair, axial susceptibility weighted imaging, axial diffus ion weighted images, and coronal T2 images were obtained. Pre and post T1 axial and post T1 coronal i mages. ADC and FSPGR images. Post gadolinium images with attention to the internal auditory canals. A xial fiesta imaging. CLINICAL INFORMATION: UNSPECIFIED SENSORINEURAL HEARING LOSS COMPARISON: MRI head 2019 FINDINGS: No evidence of restricted diffusion to suggest acute ischemia. Ventricular system and basal cisterns are patent. Mild small vessel changes. No significant parenchymal volume loss. Small vessel changes a re similar in appearance to 2019. Normal posterior fossa. Normal vascular flow voids at the skull bas e. No extra-axial fluid collections. Paranasal sinuses are well aerated. Normal posterior nasopharynx . Normal parapharyngeal fat. RIGHT mastoid effusion. Small amount of fluid LEFT mastoid tip. No hemosiderin on the susceptibility weighted images. Proximal 7th and 8th cranial nerves are normal in appearance. No evidence of enhanci ng IAC or CP angle mass. Normal trigeminal nerve root entry zones. Normal optic chiasm and pituitary infundibulum. Cavernous sinuses and Meckel's cave appear normal. No abnormal intracranial enhancement . Normal dural venous sinuses. MR/MR iac's wo/w con* [id number] IMPRESSION: 1. Proximal 7th and 8th cranial nerves are normal in appearance. No evidence o f enhancing IAC or CP angle mass. 2. Normal trigeminal nerve root entry zones. 3. Small RIGHT mastoid effusion. Trace fluid LEFT mastoid tip. 4. Paranasal sinuses and mastoid air cells well aerated. 5. Mild small vessel changes. No significant parenchymal volume loss. 6. No other acute findings.
[2022-09-17] MEDS: gadobenate dimeglumine 20 mL vial IV (11:07)
== END 2022-09-17 09:05 | disposition home or self-care (01) ==
PROVIDERS: PCP Nurse Practitioner; Visit Provider Specialist
DX: H90.5 Unspecified sensorineural hearing loss (principal); H74.8X2 Other specified disorders of left middle ear and mastoid
CPT/HCPCS: 70553; A9577

== ENCOUNTER 2022-10-13 06:00 | Outpatient (RCR) | payer MEDICARE, MEDICAID, SELFPAY | END 2022-10-31 23:59 | disposition home or self-care (01) | LOC: APT 06:00 | PROVIDERS: PCP Nurse Practitioner; Visit Provider Podiatrist Foot & Ankle Surgery | DX: M76.61 Achilles tendinitis, right leg (principal); M76.62 Achilles tendinitis, left leg; M72.2 Plantar fascial fibromatosis | CPT/HCPCS: 97110; 97140; 97161; 97162 ==

== ENCOUNTER 2022-10-14 08:56 | Outpatient (CLI) | payer MEDICARE, MEDICAID, SELFPAY ==
--- NOTE | 2022-10-14 09:12 | XR_ITS ---
WS: [id number] XR KUB [id number] REASON FOR EXAM: stones FINDINGS: The examination is unchanged compared to 05/16/2021. No definite urinary tract calculi are identified. (CT scan 2019 demonstrated right intrarenal calculi .) No other significant abnormality of the abdomen or pelvis. XR/XR KUB [id number] IMPRESSION: No identifiable urinary tract calculi.
== END 2022-10-14 08:57 | disposition home or self-care (01) ==
PROVIDERS: PCP Nurse Practitioner; Visit Provider Urology
DX: N20.0 Calculus of kidney (principal); N20.9 Urinary calculus, unspecified
CPT/HCPCS: 74018; 81003; 99213

== ENCOUNTER → 2022-10-21 10:17 | Outpatient (BNVA) | payer MEDICARE, MEDICAID, SELFPAY | PROVIDERS: PCP Nurse Practitioner; Visit Provider Nurse Practitioner | DX: J30.89 Other allergic rhinitis (principal); E78.2 Mixed hyperlipidemia; I10 Essential (primary) hypertension; M15.9 Polyosteoarthritis, unspecified; K21.9 Gastro-esophageal reflux disease without esophagitis; E11.9 Type 2 diabetes mellitus without complications; E11.69 Type 2 diabetes mellitus with other specified complication | CPT/HCPCS: 80053; 80061; 83036; 84443 ==

== ENCOUNTER → 2022-10-31 10:07 | Outpatient (BNVA) | payer MEDICARE, MEDICAID, SELFPAY | PROVIDERS: PCP Nurse Practitioner; Visit Provider Podiatrist Foot & Ankle Surgery | DX: M72.2 Plantar fascial fibromatosis (principal); M24.573 Contracture, unspecified ankle | CPT/HCPCS: 99213 ==

== ENCOUNTER 2022-11-01 06:00 | Outpatient (RCR) | payer MEDICARE, MEDICAID, SELFPAY | END 2022-12-01 23:59 | disposition home or self-care (01) | LOC: APT 06:00 | PROVIDERS: PCP Nurse Practitioner; Visit Provider Podiatrist Foot & Ankle Surgery | DX: M76.61 Achilles tendinitis, right leg (principal); M76.62 Achilles tendinitis, left leg | CPT/HCPCS: 97110; 97140 ==

== ENCOUNTER → 2022-11-10 08:21 | Outpatient (BNVA) | payer MEDICARE, MEDICAID, SELFPAY | PROVIDERS: PCP Nurse Practitioner; Visit Provider Student in an Organized Health Care Education/Training Program | DX: M17.12 Unilateral primary osteoarthritis, left knee (principal); M94.262 Chondromalacia, left knee; M23.307 Other meniscus derangements, unspecified meniscus, left knee | CPT/HCPCS: 20610; 73560; 73565; 99214; J3301 ==

== ENCOUNTER 2022-12-02 06:00 | Outpatient (RCR) | payer MEDICARE, MEDICAID, SELFPAY | END 2023-01-01 23:59 | disposition home or self-care (01) | LOC: APT 06:00 | PROVIDERS: PCP Nurse Practitioner; Visit Provider Podiatrist Foot & Ankle Surgery | DX: M76.61 Achilles tendinitis, right leg (principal); M76.62 Achilles tendinitis, left leg | CPT/HCPCS: 97110; 97140 ==

== ENCOUNTER → 2022-12-10 11:05 | Outpatient (BNVA) | payer MEDICARE, MEDICAID, SELFPAY | PROVIDERS: PCP Nurse Practitioner; Visit Provider Nurse Practitioner | DX: M54.9 Dorsalgia, unspecified (principal) | CPT/HCPCS: 72072; 72100 ==

== ENCOUNTER → 2022-12-19 09:47 | Outpatient (BNVA) | payer MEDICARE, MEDICAID, SELFPAY | PROVIDERS: PCP Nurse Practitioner; Visit Provider Podiatrist Foot & Ankle Surgery | DX: M72.2 Plantar fascial fibromatosis (principal); M76.61 Achilles tendinitis, right leg; M79.672 Pain in left foot | CPT/HCPCS: 99213 ==

== ENCOUNTER 2023-01-02 14:01 | Outpatient (CLI) | payer MEDICARE, MEDICAID, SELFPAY ==
--- NOTE | 2023-01-02 14:09 | MM_ITS ---
WS: [id number] BILATERAL 3D TOMOSYNTHESIS DIGITAL SCREENING MAMMOGRAPHY WITH CAD CLINICAL INFORMATION: Z12.31 - Encounter for screening mammogram for malignant ... HISTORY: Screening mammogram. No current complaints. COMPARISON: 2021 TECHNIQUE: Bilateral CC and MLO views. FINDINGS: Scattered fibroglandular densities bilaterally. No suspicious focal mass, asymmetry, calcifications, or architectural distortion. No evidence of malignancy. Vascular calcification IMPRESSION: MM/[place] [id number] BI-RADS: 2-Benign FOLLOW UP: 1 Year Follow-up Recommend return to annual screening mammography.
== END 2023-01-02 14:02 | disposition home or self-care (01) ==
LOC: RAD 14:03 → MOBLMAM 14:08
PROVIDERS: PCP Nurse Practitioner; Visit Provider Nurse Practitioner
DX: Z12.31 Encounter for screening mammogram for malignant neoplasm of breast (principal)
CPT/HCPCS: 77063; 77067

== ENCOUNTER → 2023-01-08 11:39 | Outpatient (BNVA) | payer MEDICARE, MEDICAID, SELFPAY | PROVIDERS: PCP Nurse Practitioner; Visit Provider Nurse Practitioner | DX: J30.89 Other allergic rhinitis (principal); R58 Hemorrhage, not elsewhere classified; E55.9 Vitamin D deficiency, unspecified; G62.9 Polyneuropathy, unspecified; J45.909 Unspecified asthma, uncomplicated | CPT/HCPCS: 82607; 85025 ==

== ENCOUNTER 2023-01-15 11:23 | Outpatient (CLI) | payer MEDICARE, MEDICAID, SELFPAY ==
--- NOTE | 2023-01-15 11:45 | MR_ITS ---
WS: [id number] EXAMINATION: MR ankle RT wo con* [id number] ORDER DATE: 01/15/2023 11:29 AM COMPARISON: None. HISTORY: See DX CONTRAST: None. TECHNIQUE: Axial proton density fat sat, axial T1, sagittal proton density, sagittal STIR, coronal T2 fat sat, and coronal T1 sequences performed. After contrast, axial T1 fat sat, coronal T1 fat sat, and sagittal T1 fat sat were performed. FINDINGS: Fluid in the retrocalcaneal bursa. Diffuse increased signal abnormality with edema in the d istal Achilles compatible with tendinopathy. Thickening of the distal Achilles. Additional partial te ar involving the ventral Achilles tendon at the level of the dorsal calcaneal tuberosity. Achilles te ndon remains intact. Plantar and Achilles calcaneal spurring. Medial and lateral malleolus appear intact. Normal talar dom e. Deltoid ligament appears intact. ATF appears intact. Small ankle effusion. Normal distal tibial pl afond. Normal ankle mortise. Talar dome appears intact. Normal bone marrow signal in the talus and ca lcaneus. Normal plantar fascia. Small split tear involving the peroneal brevis. Tenosynovitis of the peroneal tendon sheath. Tenosyno vitis involving the tibialis posterior, flexor digitorum longus, and flexor hallucis longus. Normal e xtensor compartment tendons. IMPRESSION: 1. Diffuse increased signal with thickening of the distal Achilles tendon compatible with tendinopat hy. 2. Fluid signal abnormality compatible with partial ventral surface tear of the Achilles at the leve l of the dorsal calcaneal tuberosity. 3. Associated retrocalcaneal bursitis. 4. Plantar and Achilles calcaneal spurring. Normal plantar fascia. 5. Normal ankle mortise. 6. ATF appears intact. 7. Small split tear involving the peroneal brevis with tenosynovitis along peroneal tendon sheath.
== END 2023-01-15 11:24 | disposition home or self-care (01) ==
PROVIDERS: PCP Nurse Practitioner; Visit Provider Podiatrist Foot & Ankle Surgery
DX: M72.2 Plantar fascial fibromatosis (principal); M76.61 Achilles tendinitis, right leg; M77.31 Calcaneal spur, right foot; S86.021A Laceration of right Achilles tendon, initial encounter; S86.321A Laceration of muscle(s) and tendon(s) of peroneal muscle group at lower leg level, right leg, initial encounter; X58.XXXA Exposure to other specified factors, initial encounter; Y93.9 Activity, unspecified; Y92.9 Unspecified place or not applicable; Y99.9 Unspecified external cause status
CPT/HCPCS: 73721

== ENCOUNTER → 2023-01-19 15:45 | Outpatient (BNVA) | payer MEDICARE, MEDICAID, SELFPAY | PROVIDERS: PCP Nurse Practitioner; Visit Provider Podiatrist Foot & Ankle Surgery | DX: M76.61 Achilles tendinitis, right leg (principal); M72.2 Plantar fascial fibromatosis; M24.573 Contracture, unspecified ankle | CPT/HCPCS: 99213 ==

== ENCOUNTER 2023-01-28 06:00 | Outpatient (RCR) | payer MEDICARE, MEDICAID, SELFPAY | END 2023-01-31 23:59 | disposition home or self-care (01) | LOC: APT 06:00 | PROVIDERS: Visit Provider Podiatrist Foot & Ankle Surgery | DX: M72.2 Plantar fascial fibromatosis (principal) | CPT/HCPCS: 97110; 97161 ==

== ENCOUNTER 2023-02-01 06:00 | Outpatient (RCR) | payer MEDICARE, MEDICAID, SELFPAY | END 2023-03-03 23:59 | disposition home or self-care (01) | LOC: APT 06:00 | PROVIDERS: Visit Provider Podiatrist Foot & Ankle Surgery | DX: M72.2 Plantar fascial fibromatosis (principal) | CPT/HCPCS: 97035; 97110; 97112; 97140 ==

== ENCOUNTER → 2023-02-17 15:59 | Outpatient (BNVA) | payer MEDICARE, MEDICAID, SELFPAY | PROVIDERS: PCP Nurse Practitioner; Visit Provider Nurse Practitioner | DX: J30.89 Other allergic rhinitis (principal); Z23 Encounter for immunization; I10 Essential (primary) hypertension | CPT/HCPCS: 80053 ==

== ENCOUNTER → 2023-03-09 13:23 | Outpatient (BNVA) | payer OTHER, MEDICAID, SELFPAY | PROVIDERS: PCP Nurse Practitioner; Visit Provider Podiatrist Foot & Ankle Surgery | DX: M76.61 Achilles tendinitis, right leg (principal); M72.2 Plantar fascial fibromatosis; M24.573 Contracture, unspecified ankle | CPT/HCPCS: 99213 ==

== ENCOUNTER → 2023-03-17 13:10 | Outpatient (BNVA) | payer OTHER, MEDICAID, SELFPAY | PROVIDERS: PCP Nurse Practitioner; Visit Provider Student in an Organized Health Care Education/Training Program | DX: M94.262 Chondromalacia, left knee (principal); M23.307 Other meniscus derangements, unspecified meniscus, left knee | CPT/HCPCS: 99213 ==

== ENCOUNTER → 2023-04-14 09:36 | Outpatient (BNVA) | payer OTHER, MEDICAID, SELFPAY | PROVIDERS: PCP Nurse Practitioner; Visit Provider Podiatrist Foot & Ankle Surgery | DX: E11.9 Type 2 diabetes mellitus without complications (principal); Z01.818 Encounter for other preprocedural examination; M76.61 Achilles tendinitis, right leg; M72.2 Plantar fascial fibromatosis; M24.571 Contracture, right ankle | CPT/HCPCS: 36415; 83036; 99214 ==

== ENCOUNTER 2023-05-07 11:18 | Outpatient (CLI) | payer OTHER, MEDICAID, SELFPAY ==
--- NOTE | 2023-05-07 11:37 | XR_ITS ---
WS: [id number] Chest 2 views, 05/07/2023 Clinical Data: I10 - Essential (primary) hypertension Comparison: Two-view chest, 09/19/2021 Findings: No nodules, masses or effusions are seen. The heart is normal. There are calcified granulom as in the right tracheobronchial region. The pulmonary vascularity is not increased. No pneumonia or pneumothorax is seen. There are orthopedic anchors in each humeral head. There are clips in the right upper quadrant from a cholecystectomy. Impression: Old granulomatous disease.
--- NOTE | 2023-05-07 15:25 | ECG_ITS ---
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 Measurements Intervals [place] Rate: 70 P: 65 SD: 183 QRS: 77 QRSD: 104 T: 61 QT: 413 QTc: 448 Interpretive Statements SINUS RHYTHM Compared to ECG 05/02/2021 15:23:35 Intraventricular conduction delay no longer present Electronically Signed On 05-07-2023 18:34:36 FORENSIC ACCOUNTANT by Handy Ariza M.D. [email or web address]
== END 2023-05-07 11:19 | disposition home or self-care (01) ==
PROVIDERS: PCP Nurse Practitioner; Visit Provider Nurse Practitioner
DX: Z01.818 Encounter for other preprocedural examination (principal); I10 Essential (primary) hypertension; J39.8 Other specified diseases of upper respiratory tract
CPT/HCPCS: 71046; 80053; 85025; 93005

== ENCOUNTER → 2023-05-12 10:11 | Outpatient (BNVA) | payer OTHER, MEDICAID, SELFPAY | PROVIDERS: PCP Nurse Practitioner; Visit Provider Student in an Organized Health Care Education/Training Program | DX: M70.62 Trochanteric bursitis, left hip | CPT/HCPCS: 20610; 73502; 99214; J3301; J3490 ==

== ENCOUNTER 2023-05-13 05:43 | Day surgery (SDC) | payer OTHER, MEDICAID, SELFPAY ==
[2023-05-13] VITALS (13 sets, daily range): BP systolic 135–179; BP diastolic 79–98; PULSE 63–98; RESP 11–25; TEMP 36.2–36.4; O2SAT 91–100; BMI 46.8
[2023-05-13] MEDS: sodium chloride 0.9% 1,000 ML 30 ML IV (06:18)
[2023-05-13] MEDS: gabapentin 300 mg Capsule PO (06:18)
[2023-05-13] MEDS: acetaminophen 1,000 MG/100 ML PIGGYBACK 400 MG IV (06:18)
[2023-05-13 06:22] LABS: Glucose Point of Care 171 mg/dL (70-110)
--- NOTE | 2023-05-13 06:27 | P.ANESASSM_ITS ---
Pre-Anesthetic Assessment Height/Weight: Height 1.55 m Weight 112.491 kg Temp Pulse Resp BP Pulse Ox O2 Del Method 97.6 F 82 16 176/79 95 Room Air 05/13/23 06:06 05/13/23 06:06 05/13/23 06:06 05/13/23 06:06 05/13/23 06:06 05/13/23 06:06 Preop Diagnosis: Right calcaneal spurring Operation Date: 05/13/23 07:00 Proposed Procedures p Secondary repair right Achilles tendon and Partial excision of calcaneus [id number],M89.8X7(Right) - Abdulkadir Encarnacion DPM s Partial excision of calcaneus(Right) - Abdulkadir Encarnacion DPM Was Beta Max taken within 24 hours: N/A Was Clonidine taken within 24 hours: N/A Last intake: Intake Last Liquid Date 05/12/23 Last Liquid Time 23:00 Last Solid Date 05/12/23 Last Solid Time 23:00 Social No tobacco Exam alert and oriented x 3 Airway Mallampati: Class III History/ROS No significant history except as noted and No significant complaints Pulmonary Asthma CV/HEM Hypertension GI Gastroesophageal Reflux Disease Metabolic Diabetes Mellitus, Hyperlipidemia and Morbid Obesity Anesthetic Plan ASA status: 3 Anesthesia: General and Regional (specify below) Other: Popliteal block per surgeon Risk of > 500 ml blood loss (7ml/kg in children): No Medications/Allergies Home Medications Medication Instructions Recorded Confirmed Last Taken Type azelastine 137 mcg (0.1 %) nasal 2 spray intranasal BID 05/03/19 05/12/23 05/12/23 History spray aerosol cetirizine 10 mg tablet 10 mg PO DAILY 05/03/19 05/12/23 05/12/23 History aspirin 81 mg tablet,delayed 81 mg PO DAILY 08/01/19 05/12/23 05/12/23 History release cholecalciferol (vitamin D3) 25 25 mcg PO DAILY 01/18/20 05/12/23 05/12/23 His tory mcg (1,000 unit) tablet (Vitamin D3) cyanocobalamin (vitamin B-12) 1,000 mcg PO DAILY 01/18/20 05/12/23 05/12/23 History 1,000 mcg tablet (Vitamin B-12) fluticasone propionate 50 See Rx Instructions .Route .COMPLEX 01/18/20 05/12/23 03/19/22 History mcg/actuation nasal spray,suspension levocetirizine 5 mg tablet 5 mg PO DAILY 01/18/20 05/12/23 05/12/23 History eltmuixceigu-Nu-kocf-minerals 1 tab PO DAILY 01/18/20 05/12/23 05/12/23 History (Multiple Vitamin, Womens tablet) vitamin E 1 cap PO DAILY 01/18/20 05/12/23 05/12/23 History nitroglycerin 0.4 mg sublingual 0.4 mg sublingual Q5M PRN chest 02/02/20 05/12/23 Unknown Rx tablet pain #25 tabs estradiol 0.01% (0.1 mg/gram) 1 g vaginal .weekly #42.5 grams 01/31/21 05/12/23 05/12/23 Rx vaginal cream (Estrace) albuterol sulfate 2.5 mg/3 mL 2.5 mg (3 mL) inhalation QID PRN 09/18/21 05/12/23 03/10/22 Rx (0.083 %) solution for nebulization shortness of breath or wheezing #75 mL albuterol sulfate 90 mcg/actuation 2 puff inhalation QID PRN 05/20/22 05/12/23 Unknown Rx aerosol inhaler (ProAir HFA) shortness of breath or wheezing #6.7 grams Night Splint #1 ea 07/30/22 05/12/23 Unknown Rx epinephrine 0.3 mg/0.3 mL 0.3 mg (0.3 mL) IM Q10M PRN 08/24/22 05/12/23 Unknown Rx injection syringe anaphylaxis #2 ea budesonide-formoterol HFA 160 2 puff inhalation Q12H #10.2 grams 02/04/23 05/12/23 05/12/23 Rx mcg-4.5 mcg/actuation aerosol inhaler (Symbicort) montelukast 10 mg tablet 10 mg PO DAILY #90 tabs 02/04/23 05/12/23 05/12/23 Rx (Singulair) hydroxyzine pamoate 25 mg capsule 25 mg PO Q6H PRN itching and 02/06/23 05/12/23 Unknown Rx anxiety #270 caps atorvastatin 20 mg tablet (Lipitor) 20 mg PO DAILY #90 tabs 12/05/23 01/09/24 01/09/24 Rx diltiazem HCl 60 mg tablet 60 mg PO .every 12 hours #180 tabs 04/07/23 05/13/23 05/13/23 Rx furosemide 20 mg tablet (Lasix) 20 mg PO QAM #90 tabs 04/07/23 05/12/23 05/12/23 Rx meloxicam 15 mg tablet 15 mg PO DAILY #90 tabs 04/07/23 05/12/23 05/12/23 Rx pantoprazole 20 mg tablet,delayed 20 mg PO DAILY #90 tabs 04/07/23 05/12/23 05/12/23 Rx release (Protonix) valsartan 320 mg tablet (Diovan) 320 mg PO DAILY #90 tabs 04/07/23 05/12/23 05/12/23 Rx zonisamide 50 mg capsule 50 mg PO BID #180 caps 04/07/23 05/12/23 05/12/23 Rx promethazine-DM 6.25 mg-15 mg/5 mL 5 ml PO Q6H PRN drainage and cough 05/06/23 05/12/23 Unknown Rx oral syrup #120 mL paroxetine HCl 40 mg tablet 40 mg PO DAILY 05/12/23 05/12/23 05/12/23 History trazodone 100 mg tablet 100 mg PO DAILY 05/12/23 05/12/23 05/12/23 History Crutches #1 ea 05/13/23 Unknown Rx hydrocodone 5 mg-acetaminophen 325 1 tab PO Q6H PRN pain #28 tabs 05/13/23 Unknown Rx mg tablet Allergies Allergy/AdvReac Type Severity Reaction Status Date / Time hydrochlorothiazide Allergy ADR-Itching Verified 05/12/23 11:26 Current Medications Generic Name Dose Route Start Last Admin Trade Name Freq PRN Reason Stop Dose Admin Sodium Chloride 1,000 mls @ 30 mls/hr 05/13/23 06:00 05/13/23 06:18 Sodium Chloride 0.9% IV 05/14/23 05:59 30 mls/hr .Q24H ELVIA Administration PFSH Anesthesia Medical History Insomnia Right carpal tunnel syndrome Carpal tunnel syndrome of left wrist Allergy-induced asthma Psychiatric care Obesity, morbid, BMI 40.0-49.9 Urolithiasis Multistone Former. 13mm LEFT UPJ stone cleared with ESWL in 2018 2.5 mm RIGHT UVJ stone spontaneously passed 2020 Dietary stone risk reduction strategies employed Renal calculi History of a large stone requiring ESWL but with complete resolution eventually. Encourage dietary modification for stone risk reduction. Atrophy of vulva History of kidney stones GERD (gastroesophageal reflux disease) Insomnia Osteoarthritis Hyperlipidemia Hypertension Major depressive disorder, recurrent, moderate Surgical History History of tonsillectomy 05/08/2021 History of lithotripsy H/O repair of right rotator cuff History of tubal ligation H/O repair of left rotator cuff H/O lateral meniscus repair of right knee History of partial hysterectomy without BSO History of left breast biopsy History of cholecystectomy Family History Father , AT AGE 54 Heart disease Mother Osteoarthritis Other CAD (coronary artery disease) Cancer Diabetes Hypertension Osteoporosis Rheumatoid arthritis Denies family history of Stroke Social History Smoking and tobacco/nicotine status: never used tobacco/nicotine Second hand smoke exposure: No Alcohol intake: never Substance/Drug Use: never Adopted: No Caregiver/support person: No Lives independently: Yes Household members: spouse Housing: House Marital status: service: No Current occupational status: disabled Do you think of yourself as: Straight/Heterosexual Current gender identity: Female Data Anesthesia Cardiac Studies: Echocardiogram Ultrasound 08/12/19
--- NOTE | 2023-05-13 06:46 | W.PM.OPSUD ---
Surgery/Procedure H&P Update DATE OF PROCEDURE: May 13, 2023 DATE H&P PERFORMED: 04/14/23 H&P UPDATE INFORMATION: I have reviewed H&P completed within last 30 days, I have examined patient prior to procedure, No changes to prior documentation and H&[place] is in [facility] [place] PREOP DIAGNOSIS: Right calcaneal spurring PLANNED PROCEDURE: Operation Date: 05/13/23 07:00 Proposed Procedures p Secondary repair right Achilles tendon and Partial excision of calcaneus [id number],M89.8X7(Right) - Abdulkadir Encarnacion DPM s Partial excision of calcaneus(Right) - Abdulkadir Encarnacion DPM
[2023-05-13] MEDS: ceFAZolin 2,000 MG in sodium chloride 0.9% (plus) 50 ML 100 MG IV (06:59)
--- NOTE | 2023-05-13 08:44 | P.BOP_ITS ---
Date of procedure: 05/13/2023 Surgeon name: Tiana HernandezPViky Certified Peer Specialist(s) name(s): Edwar Kenney Procedure(s) performed: Secondary repair right Achilles, exostectomy calcaneus Description of findings: Retrocalcaneal exostosis, degenerative Achilles tendon Estimated blood loss: 5 cc Tourniquet time: 60 minutes Specimen(s) removed: None Post-operative diagnosis: Right Achilles tendinosis, retrocalcaneal exostosis
--- NOTE | 2023-05-13 08:46 | PM.OP ---
Operative Report Date of procedure: May 13, 2023 Pre-op diagnosis: Right achilles tendinosis, right retrocalcaneal exostosis Post-op diagnosis: same Procedure done: 1. Secondary repair right achilles CPT 35596 2. 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 The patient has had the aforementioned chief complaint for some time. Conservative treatment measures have been attempted and the patient has opted for surgical intervention at this time. A lengthy discussion regarding the procedure, including risks and complications has been had with the patient and is noted in the recent clinic note. Written and verbal consent have been obtained. All patient questions have been answered to the patient?s satisfaction. No written or verbal guarantees have been given or implied. The patient has been NPO since midnight. The history has been reviewed and the history and physical is current. The signed consent was confirmed and placed in the patient chart. Patient imaging has been reviewed and is consistent with the diagnosis. Under mild sedation, the patient was brought into the operating room and placed on the table in the prone position. IV antibiotics were given by the anesthesia team as preoperative surgical prophylaxis. General sedation was then performed by the anesthesiateam. A popliteal block was performed by the anesthesia department. A pneumatic tourniquet was then placed about the right thigh. The operative extremity was then prepped and draped in the usual fashion. The extremity was then elevated and exsanguinated before the tourniquet was inflated to 325 mmHg. After inflation, the following procedure was then performed. An approximately 6 cm longitudinal incision was made over the posterior aspect of the heel, centered over the Alberto's deformity. The incision was deepened through the skin and subcutaneous tissue, and the underlying Achilles tendon was identified and protected. Using a combination of sharp dissection and electrocautery, the soft tissues were carefully dissected to expose the prominent bony prominence associated with the Alberto's deformity. A sagittal saw and rongeurs were utilized to perform a resection of the bony prominence of the calcaneus, taking care to protect the underlying soft tissues. Following the Alberto's resection, attention was turned to the Achilles tendon. Any adhesions, scar tissue, or degenerative tissue present within the tendon were meticulously debrided using a combination of sharp dissection and a shaver. Care was taken to preserve healthy tendon tissue and maintain the integrity of the tendon. After the debridement of the diseased portions of the tendon, the Arthrex Speed Bridge system was employed for the repair of the Achilles tendon. The appropriate drill holes were made in the calcaneus and the distal end of the tendon. Sutures were then passed through the drill holes, and the tendon was repaired using the Speed Bridge construct, achieving stable fixation. The wound was thoroughly irrigated with saline solution to remove any debris or bone fragments. Hemostasis was achieved, and the wound was closed in layers. The subcutaneous tissue was approximated with absorbable sutures, and the skin was closed with a combination of absorbable vicryl sutures and skin sutures, nylon. A sterile dressing was applied over the surgical site, and a well-padded posterior splint was applied to immobilize the foot and ankle. The patient tolerated the procedure well, and there were no intraoperative complications. The patient tolerated the procedure and anesthesia well and without complication. The patient was transported from the operating room to the recovery room with vital signs stable and vascular status intact to all digits of the right foot. The patient was given both written and verbal instructions to remain nonweightbearing to the operative extremity, to keep dressings/splint clean, dry and intact and to take pain medication as directed. The patient will follow-up in the outpatient setting at their scheduled appointment. The patient was discharged with my personal number and was instructed to call if any questions or issues should arise. They were discharged home once anesthesia criteria was met.
[2023-05-13] MEDS: fentaNYL 50 mcg/mL INJ 2mL IVP (09:13)
--- NOTE | 2023-05-13 19:29 | ANE.PACU2 ---
Inpatient post-anesthesia follow up: Airway intact: Yes Vital signs: Temperature 97.1 F Pulse Rate 63 Respiratory Rate 17 Blood Pressure 135/87 Pulse Oximetry 92 Oxygen Delivery Me thod Room Air Oxygen Flow Rate 3 Fraction of Inspir ed Oxygen Hydration adequate: Yes Nausea and vomiting: No Pain level: 2 Mental status: Baseline
== END 2023-05-13 10:45 | disposition home or self-care (01) ==
PROVIDERS: PCP Nurse Practitioner; Visit Provider Podiatrist Foot & Ankle Surgery
PROC: (CPT 27650; principal; 2023-05-13 07:00)
PROC: (CPT 27654; 2023-05-13 07:00)
DX: M89.8X7 Other specified disorders of bone, ankle and foot (principal); Z79.82 Long term (current) use of aspirin; M76.71 Peroneal tendinitis, right leg; M72.2 Plantar fascial fibromatosis; M24.573 Contracture, unspecified ankle
CPT/HCPCS: 27654; 28120; 36416; 82962; C1713; J0131; J0690; J1100; J2405; J2704; J2795; J3010; J3490; J7030

== ENCOUNTER → 2023-05-27 12:48 | Outpatient (BNVA) | payer OTHER, MEDICAID, SELFPAY | PROVIDERS: PCP Nurse Practitioner; Visit Provider Podiatrist Foot & Ankle Surgery | DX: M76.61 Achilles tendinitis, right leg (principal); M72.2 Plantar fascial fibromatosis; M79.672 Pain in left foot; M24.573 Contracture, unspecified ankle | CPT/HCPCS: 29405; 99024 ==

== ENCOUNTER 2023-06-10 06:00 | Outpatient (CLI) | payer MEDICARE, MEDICAID, SELFPAY | END 2023-06-10 06:01 | disposition home or self-care (01) | LOC: SPT 06-11 13:15 | PROVIDERS: Visit Provider Podiatrist Foot & Ankle Surgery | DX: Z47.89 Encounter for other orthopedic aftercare (principal); M79.671 Pain in right foot | CPT/HCPCS: 97760; L4361 ==

== ENCOUNTER → 2023-06-10 12:48 | Outpatient (BNVA) | payer OTHER, MEDICAID, SELFPAY | PROVIDERS: PCP Nurse Practitioner; Visit Provider Podiatrist Foot & Ankle Surgery | DX: Z98.890 Other specified postprocedural states (principal); M76.61 Achilles tendinitis, right leg; M72.2 Plantar fascial fibromatosis; M79.672 Pain in left foot; M24.573 Contracture, unspecified ankle | CPT/HCPCS: 99024 ==

== ENCOUNTER → 2023-06-23 12:36 | Outpatient (BNVA) | payer OTHER, MEDICAID, SELFPAY | PROVIDERS: PCP Nurse Practitioner; Visit Provider Podiatrist Foot & Ankle Surgery | DX: Z98.890 Other specified postprocedural states (principal); M76.61 Achilles tendinitis, right leg; M72.2 Plantar fascial fibromatosis; M24.573 Contracture, unspecified ankle | CPT/HCPCS: 99024 ==

== ENCOUNTER 2023-06-29 06:00 | Outpatient (RCR) | payer MEDICARE, MEDICAID, SELFPAY | END 2023-07-02 23:59 | disposition home or self-care (01) | LOC: APT 06:00 | PROVIDERS: Visit Provider Podiatrist Foot & Ankle Surgery | DX: Z47.89 Encounter for other orthopedic aftercare (principal) | CPT/HCPCS: 97110; 97161; 97530 ==

== ENCOUNTER 2023-07-03 06:00 | Outpatient (RCR) | payer MEDICARE, MEDICAID, SELFPAY | END 2023-08-02 23:59 | disposition home or self-care (01) | LOC: APT 06:00 | PROVIDERS: PCP Nurse Practitioner; Visit Provider Podiatrist Foot & Ankle Surgery | DX: Z47.89 Encounter for other orthopedic aftercare (principal) | CPT/HCPCS: 97110; 97530 ==

== ENCOUNTER → 2023-07-08 12:34 | Outpatient (BNVA) | payer MEDICARE, MEDICAID, SELFPAY | PROVIDERS: PCP Nurse Practitioner; Visit Provider Podiatrist Foot & Ankle Surgery | DX: Z98.890 Other specified postprocedural states (principal); M76.61 Achilles tendinitis, right leg; M72.2 Plantar fascial fibromatosis; M79.672 Pain in left foot; M24.571 Contracture, right ankle | CPT/HCPCS: 99024 ==

== ENCOUNTER → 2023-07-30 15:02 | Outpatient (BNVA) | payer MEDICARE, MEDICAID, SELFPAY | PROVIDERS: PCP Nurse Practitioner; Visit Provider Physician Assistant | DX: R05.9 Cough, unspecified (principal) | CPT/HCPCS: 87400; 87426 ==

== ENCOUNTER 2023-08-03 06:00 | Outpatient (RCR) | payer MEDICARE, MEDICAID, SELFPAY | END 2023-09-01 23:59 | disposition home or self-care (01) | LOC: APT 06:00 | PROVIDERS: PCP Nurse Practitioner; Visit Provider Podiatrist Foot & Ankle Surgery | DX: Z98.890 Other specified postprocedural states (principal) | CPT/HCPCS: 97110; 97140; 97530 ==

== ENCOUNTER → 2023-08-10 09:50 | Outpatient (BNVA) | payer MEDICARE, MEDICAID, SELFPAY | PROVIDERS: PCP Nurse Practitioner; Visit Provider Nurse Practitioner | DX: R05.9 Cough, unspecified (principal); R07.81 Pleurodynia; Z79.899 Other long term (current) drug therapy | CPT/HCPCS: 80048; 85025; 87426 ==

== ENCOUNTER 2023-08-11 11:05 | Outpatient (CLI) | payer MEDICARE, MEDICAID, SELFPAY ==
--- NOTE | 2023-08-11 11:12 | XRR_ITS ---
PROCEDURE INFORMATION: Exam: XR Chest Exam date and time: 08/11/2023 11:18 AM Age: 62 years old Clinical indication: Cough; Additional info: R05.9 - cough, unspecified TECHNIQUE: Imaging protocol: Radiologic exam of the chest. Views: 2 views. COMPARISON: CR XR chest 2V* [id number] 05/07/2023 11:47 AM FINDINGS: Lungs: Unremarkable. No consolidation. Pleural spaces: Unremarkable. No pleural effusion. No pneumothorax. Heart/Mediastinum: Unremarkable. No cardiomegaly. Bones/joints: Metallic pins are seen in the proximal right and left humeral head stable since prior. Dorsal spine shows osteopenia and osteoarthritis XR/XR chest 2V* [id number] IMPRESSION: 1. No acute findings. 2. Metallic pins in the right and left humeral head. 3. Dorsal spine osteopenia and osteoarthritis
--- NOTE | 2023-08-11 11:12 | XRR_ITS ---
PROCEDURE INFORMATION: Exam: XR Left Ribs Exam date and time: 08/11/2023 11:18 AM Age: 62 years old Clinical indication: Other: Cough, unspecified; Additional info: R05.9 - cough, unspecified TECHNIQUE: Imaging protocol: Radiologic exam of the left ribs. Views: 2 views. COMPARISON: CR XR chest 2V* [id number] 08/11/2023 11:18 AM FINDINGS: Bones/joints: Negative for acute bone abnormality Metallic pin is in the left humeral head. Soft tissues: Normal. XR/XR ribs LT 2V* [id number] IMPRESSION: No acute findings.
== END 2023-08-11 11:06 | disposition home or self-care (01) ==
LOC: RAD 11:07
PROVIDERS: PCP Nurse Practitioner; Visit Provider Nurse Practitioner
DX: R05.9 Cough, unspecified (principal); R07.81 Pleurodynia
CPT/HCPCS: 71046; 71100

== ENCOUNTER → 2023-08-12 14:41 | Outpatient (BNVA) | payer MEDICARE, MEDICAID, SELFPAY | PROVIDERS: PCP Nurse Practitioner; Visit Provider Podiatrist Foot & Ankle Surgery | DX: Z98.890 Other specified postprocedural states (principal); M76.61 Achilles tendinitis, right leg; M72.2 Plantar fascial fibromatosis; M24.573 Contracture, unspecified ankle | CPT/HCPCS: 99213 ==

== ENCOUNTER 2023-08-20 14:49 | Emergency (ER) | payer MEDICARE, MEDICAID, SELFPAY ==
[2023-08-20 14:52] VITALS: BP 124/72; PULSE 65; RESP 16; TEMP 36.7; O2SAT 93
--- NOTE | 2023-08-20 14:53 | ECG_ITS ---
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 Measurements Intervals [place] Rate: 61 P: 31 IN: 181 QRS: 28 QRSD: 105 T: 23 QT: 404 QTc: 408 Interpretive Statements SINUS RHYTHM Compared to ECG 05/07/2023 15:25:19 No significant changes Electronically Signed On 08-20-2023 15:20:51 CDT by Handy Ariza M.D. [email or web address] medical [email or web address] Networkssamaritan [email or web address]/[id number]
--- NOTE | 2023-08-20 14:53 | XR_ITS ---
WS: [id number] Exam: XR chest 1V portable [id number] Date/Time of Exam: 08/20/2023 2:53 PM Reason For Exam: cp Comparison 08/11/2023. The lungs are clear and fully expanded. Normal cardiomediastinal silhouette. Rotator cuff anchors in both humeral heads. Spondylosis of the T-spine. No pleural effusion. IMPRESSION: 1. No acute cardiopulmonary finding.
[2023-08-20 16:07] LABS: Basophils # 0.1 10^3/uL (0.0-0.1); Basophils % 1.5 %; Eosinophils # 0.7 10^3/uL (0.0-0.8); Eosinophils % 10.3 %; Hematocrit 41.6 % (36-47); Lymphocytes # 1.8 10^3/uL (0.8-4.8); Lymphocytes % 25.7 %; Mean Corpuscular HGB Conc 32.2 g/dL (30-55); Mean Corpuscular Hemoglobin 29.6 pg (27-33); Mean Corpuscular Volume 91.8 fl (85-98); Mean Platelet Volume 11.5 fL (7.4-10.4); Monocytes # 0.8 10^3/uL (0.2-0.9); Monocytes % 11.1 %; Neutrophils # 3.62 10^3/uL (1.8-7.7); Neutrophils % 50.8 %; Nucleated Red Blood Cells % 0 %; Platelet Count 293 10^3/cmm (157-399); Red Blood Count 4.53 10^6/uL (3.85-5.65); White Blood Count 7.12 10^3/uL (3.29-11.43)
[2023-08-20 16:20] VITALS: BP 139/66; PULSE 59; RESP 19; O2SAT 98
[2023-08-20 16:20] LABS: INR 0.99 (0.8-1.2)
--- NOTE | 2023-08-20 16:20 | ED_ITS ---
HPI - URI/Sore Throat 2 General: Chief Complaint: Upper Respiratory Infection Stated Complaint: chest pain Time Seen by Provider: 08/20/23 16:19 History of Present Illness: 62-year-old female comes in today with r ight anterior chest wall pain. Patient reports she has had cough and congestion for about 3 to 4 weeks now. Patient reports over the last week she has had increasing discomfort to the right anterior chest especially with movement and coughing. Patient appears nontoxic. Patient has been on prednisone for the pain and discomfort with minimal relief. Patient reports continued head and chest congestion. Patient denies any chronic lung problems. Has a history of hypertension, hyperlipidemia, and GERD Review of Systems 2 General: Reports: 10 or more systems reviewed and unremarkable except in HPI and below PFSH ED 2 PFSH: Medical History Allergic bronchitis Insomnia Right carpal tunnel syndrome Carpal tunnel syndrome of left wrist Allergy-induced asthma Psychiatric care Obesity, morbid, BMI 40.0-49.9 Urolithiasis Multistone Former. 13mm LEFT UPJ stone cleared with ESWL in 2018 2.5 mm RIGHT UVJ stone spontaneously passed 2020 Dietary stone risk reduction strategies employed Renal calculi History of a large stone requiring ESWL but with complete resolution eventually. Encourage dietary modification for stone risk reduction. Atrophy of vulva History of kidney stones GERD (gastroesophageal reflux disease) Insomnia Osteoarthritis Hyperlipidemia Hypertension Major depressive disorder, recurrent, moderate Surgical History History of tonsillectomy 05/08/2021 History of lithotripsy H/O repair of right rotator cuff History of tubal ligation H/O repair of left rotator cuff H/O lateral meniscus repair of right knee History of partial hysterectomy without BSO History of left breast biopsy History of cholecystectomy Family History Father , AT AGE 54 Heart disease Mother Osteoarthritis Other CAD (coronary artery disease) Cancer Diabetes Hypertension Osteoporosis Rheumatoid arthritis Denies family history of Stroke Social History Smoking and tobacco/nicotine status: never used tobacco/nicotine Second hand smoke exposure: No Alcohol intake: never Substance/Drug Use: never Adopted: No Caregiver/support person: No Lives independently: Yes Household members: spouse Housing: House Marital status: service: No Current occupational status: disabled Do you think of yourself as: Straight/Heterosexual Current gender identity: Female Physical Exam 2 Const: COMMON NORMALS: alert HENMT: COMMON NORMALS: normocephalic HEAD & SCALP: normocephalic Neck/C-Spine: COMMON NORMALS: full ROM Chest: CHEST: No crepitus and Yes tenderness (Right lateral anterior chest) Resp: COMMON NORMALS: normal respiratory effort and clear to auscultation bilaterally AUSCULTATION: clear to auscultation bilaterally Cardio: COMMON NORMALS: regular rate and regular rhythm RATE: regular rate RHYTHM: regular rhythm GI: COMMON NORMALS: Soft to palpation INSPECTION: Yes normal to inspection AUSCULTATION: Yes normoactive bowel sounds PALPATION: Yes Soft to palpation and Yes Tenderness to palpation present (GI) Details: RUQ Back/Pelvis: COMMON NORMALS: thoracic and lumbar spine normal to inspection Extremity: COMMON NORMALS: full ROM Neuro: SENSORIUM/ORIENTATION: Yes alert Skin: COMMON NORMALS: turgor normal GENERAL SKIN EXAM: turgor normal Course 2 Vital Signs: Vital signs: Vital Signs Temperature 98.0 F 08/20/23 14:52 Pulse Rate 56 L 08/20/23 16:37 Respiratory Rate 19 H 08/20/23 16:20 Blood Pressure 111/54 08/20/23 16:37 Pulse Oximetry 97 08/20/23 16:37 Oxygen Delivery Me thod Room Air 08/20/23 16:37 MDM - URI/Sore Throat Medical Decision Making 62-year-old female comes in today for complaints of right lateral chest wall pain and tenderness. Lungs are clear to auscultation. Abdomen soft with some tenderness in the right upper quadrant. Vital signs are normal. Differential diagnosis includes costochondritis, pneumonia, muscle strain. CBC and CMP were unremarkable. EKG showed a sinus bradycardia with a regular rate at 50 [address] elevation or ectopy is noted. When compared to prior exams there was no significant changes. Patient had reproducible chest wall pain with palpation. This is probably more Due To Costochondritis or Strain. Patient Be Placed on Diclofenac 75 Mg 1 Tablet Twice a Day for the Next 10 Days. Patient Was Given a Few Hydrocodone for Severe Pain. Due To Patient's Persistent Head Congestion and Cough We Will Go Ahead and Cover with Doxycycline 100 Mg Twice a Day for the Next 7 Days. Patient Reported Understanding of Care Plan Need for Follow-Up or Return to the ER. Lab Data 08/20/23 15:56 08/20/23 15:56 Laboratory Results WBC 7.12 10^3/uL (3.29-11.43) 08/20/23 15:56 RBC 4.53 10^6/uL (3.85-5.65) 08/20/23 15:56 Hgb 13.40 g/dL (11.27-16.99) 08/20/23 15:56 Hct 41.6 % (36-47) 08/20/23 15:56 MCV 91.8 fl (85-98) 08/20/23 15:56 MCH 29.6 pg (27-33) 08/20/23 15:56 MCHC 32.2 g/dL (30-55) 08/20/23 15:56 RDW 14.0 % (12.1-15.1) 08/20/23 15:56 Plt Count 293 10^3/cmm (157-399) 08/20/23 15:56 MPV 11.5 fL (7.4-10.4) H 08/20/23 15:56 Neut % (Auto) 50.8 % 08/20/23 15:56 Lymph % (Auto) 25.7 % 08/20/23 15:56 [place] % (Auto) 11.1 % 08/20/23 15:56 Eos % (Auto) 10.3 % 08/20/23 15:56 Baso % (Auto) 1.5 % 08/20/23 15:56 Neut # (Auto) 3.62 10^3/uL (1.8-7.7) 08/20/23 15:56 Lymph # (Auto) 1.8 10^3/uL (0.8-4.8) 08/20/23 15:56 [place] # (Auto) 0.8 10^3/uL (0.2-0.9) 08/20/23 15:56 Eos # (Auto) 0.7 10^3/uL (0.0-0.8) 08/20/23 15:56 Baso # (Auto) 0.1 10^3/uL (0.0-0.1) 08/20/23 15:56 Nucleated RBC % (auto) 0 % 08/20/23 15:56 Nucleated RBCs # 0.0 /100WBC 08/20/23 15:56 PT 13.40 SECONDS (12.1-14.9) 08/20/23 15:56 INR 0.99 (0.8-1.2) 08/20/23 15:56 Sodium 141 mmol/L (136-145) 08/20/23 15:56 Potassium 4.0 mmol/L (3.5-5.1) 08/20/23 15:56 Chloride 104 mmol/L (98-107) 08/20/23 15:56 Carbon Dioxide 29 mmol/L (22-29) 08/20/23 15:56 Anion Gap 12.0 (5-19) 08/20/23 15:56 BUN 18 mg/dL (8-23) 08/20/23 15:56 Creatinine 0.9 mg/dL (0.5-0.9) 08/20/23 15:56 GFR Calculation 63.9 mL/min (90-130) L 08/20/23 15:56 Glucose 102 mg/dL (65-115) 08/20/23 15:56 Calculated Osmolality 294 mOsm/kg (285-295) 08/20/23 15:56 Calcium 9.2 mg/dL (8.5-10.5) 08/20/23 15:56 Total Bilirubin 0.5 mg/dL (0.15-1.2) 08/20/23 15:56 AST 24 U/L (0-32) 08/20/23 15:56 ALT 50 U/L (0-33) H 08/20/23 15:56 Alkaline Phosphatase 105 U/L (35-105) 08/20/23 15:56 Troponin T Baseline 17 ng/L (0-10) H 08/20/23 15:56 Total Protein 6.2 g/dL (6.6-8.7) L 08/20/23 15:56 Albumin 3.8 g/dL (3.5-5.2) 08/20/23 15:56 Globulin 2.4 g/dL (1.3-4.6) 08/20/23 15:56 Lipase 39 U/L (13-60) 08/20/23 15:56 All radiology interpretation(s) finalized by discharge Discharge Plan Discharge Patient Disposition: Home Clinical Impression: Right-sided chest wall pain Sinusitis Qualifiers: Sinusitis location: pansinusitis Chronicity: unspecified Qualified Code(s): J 32.4 - Chronic pansinusitis Condition: Stable Prescriptions: New hydrocodone-acetaminophen 5-325 mg tablet 1 tab PO Q6H PRN (Reason: pain (scale score 7-10)) Qty: 10 0RF diclofenac sodium 75 mg tablet,delayed release (DR/EC) 75 mg PO BID Qty: 14 0RF Rx Instructions: hold meloxicam while taking doxycycline hyclate 100 mg tablet 100 mg PO BID 7 Days Qty: 14 0RF No Action azelastine 137 mcg (0.1 %) aerosol,spray 2 spray INTRANASAL BID cetirizine 10 mg tablet 10 mg PO DAILY nitroglycerin 0.4 mg tablet, sublingual 0.4 mg SUBLINGUAL Q5M PRN (Reason: chest pain) Qty: 25 0RF Rx Instructions: do not exceed 3 doses per episode aspirin 81 mg tablet,delayed release (DR/EC) 81 mg PO DAILY estradiol [Estrace] 0.01 % (0.1 mg/gram) cream 1 g vaginal .weekly Qty: 42.5 2RF budesonide-formoterol [Symbicort] 160-4.5 mcg/actuation HFA aerosol inhaler 2 puff inhalation Q12H Qty: 10.2 2RF (DME) CAM boot See Rx Instructions .Route .MEDSUPPLY Qty: 1 0RF Rx Instructions: As directed atorvastatin [Lipitor] 20 mg tablet 20 mg PO DAILY Qty: 90 1RF diltiazem HCl 60 mg tablet 60 mg PO .every 12 hours Qty: 180 1RF furosemide [Lasix] 20 mg tablet 20 mg PO QAM Qty: 90 1RF meloxicam 15 mg tablet 15 mg PO DAILY Qty: 90 1RF montelukast [Singulair] 10 mg tablet 10 mg PO DAILY Qty: 90 1RF pantoprazole [Protonix] 20 mg tablet,delayed release (DR/EC) 20 mg PO DAILY Qty: 90 1RF valsartan [Diovan] 320 mg tablet 320 mg PO DAILY Qty: 90 1RF zonisamide 50 mg capsule 50 mg PO BID Qty: 180 1RF budesonide [Pulmicort] 0.5 mg/2 mL suspension for nebulization 0.5 mg inhalation BID Qty: 120 0RF albuterol sulfate 2.5 mg /3 mL (0.083 %) solution for nebulization 2.5 mg inhalation QID PRN (Reason: shortness of breath or wheezing) Qty: 75 2RF prednisone 20 mg tablet 20 mg PO DAILY Qty: 14 0RF albuterol sulfate 90 mcg/actuation HFA aerosol inhaler 1 inh inhalation QID PRN (Reason: shortness of breath or wheezing) Qty: 8.5 0RF promethazine-DM 6.25-15 mg/5 mL syrup 5 ml PO Q6H PRN (Reason: cough) Qty: 120 0RF albuterol sulfate [ProAir HFA] 90 mcg/actuation HFA aerosol inhaler 2 puff inhalation QID PRN (Reason: shortness of breath or wheezing) Qty: 6.7 2RF promethazine-DM 6.25-15 mg/5 mL syrup 5 ml PO Q6H PRN (Reason: drainage and cough) Qty: 120 0RF epinephrine 0.3 mg/0.3 mL syringe 0.3 mg IM Q10M PRN (Reason: anaphylaxis) Qty: 2 3RF Rx Instructions: for 2 doses hydroxyzine pamoate 25 mg capsule 25 mg PO Q6H PRN (Reason: itching and anxiety ) Qty: 270 0RF (DME) Crutches See Rx Instructions .Route .MEDSUPPLY Qty: 1 0RF Rx Instructions: As directed tizanidine [Zanaflex] 4 mg tablet 4 mg PO BID PRN (Reason: muscle spasticity) Qty: 60 0RF cyanocobalamin (vitamin B-12) [Vitamin B-12] 1,000 mcg Tablet 1,000 mcg PO DAILY fluticasone propionate 50 mcg/actuation [place],Suspension See Rx Instructions .ROUTE .COMPLEX Rx Instructions: intranasally USE DIRECTED. Multiple Vitamin, Womens Tablet 1 tab PO DAILY cholecalciferol (vitamin D3) [Vitamin D3] 25 mcg (1,000 unit) Tablet 25 mcg PO DAILY levocetirizine 5 mg Tablet 5 mg PO DAILY Rx Instructions: mg USE DIRECTED. vitamin E 1 cap PO DAILY paroxetine HCl 40 mg tablet 40 mg PO DAILY Rx Instructions: TAKE 1 TABLET BY MOUTH ONCE DAILY trazodone 100 mg tablet 100 mg PO DAILY Rx Instructions: TAKE 1 TABLET BY MOUTH AT BEDTIME Discharge Orders: Discharge ED (Routine); Ordered 08/20/23 Ordered By: Jose Hammonds Referrals: Mary Silveira, FIELD INVESTIGATOR-C [Primary Care Provider] - Discharge Diet: Usual diet Discharge Activity: Increase activity as tolerated Patient Instructions: Chest Wall Pain (ED) Activity Restrictions/Additional Instructions: Drink plenty water and fluids. Take antibiotics as directed. Take diclofenac 1 tablet twice a day for pain and inflammation. Do not use any other NSAIDs like ibuprofen, naproxen, or meloxicam while taking this medication. Use hydrocodone as needed for severe pain. Follow-up with primary care in 1 week for recheck. Return to ED for new concerns or worsening symptoms such as severe chest pain and worsening shortness of breath. Coding Level of Care Code ED Merchandise Worker for Ashlee Arellano
[2023-08-20 16:25] LABS: Troponin(5th) Baseline 17 ng/L (0-10)
[2023-08-20] MEDS: doxycycline 100 mg Tablet PO (16:32)
[2023-08-20] MEDS: HYDROcodone-acetaminophen 7.5-325 mg Tablet 1 TAB PO (16:32)
[2023-08-20] MEDS: dexamethasone 10 mg/mL INJ IM (16:32)
[2023-08-20] MEDS: ketorolac 30 mg/mL INJ IM (16:34)
[2023-08-20 16:35] LABS: Alanine Aminotransferase 50 U/L (0-33); Albumin Level 3.8 g/dL (3.5-5.2); Alkaline Phosphatase 105 U/L (35-105); Aspartate Amino Transferase 24 U/L (0-32); Blood Urea Nitrogen 18 mg/dL (8-23); Calcium 9.2 mg/dL (8.5-10.5); Carbon Dioxide 29 mmol/L (22-29); Chloride 104 mmol/L (98-107); Creatinine Clr Calc Pharmacy 76.5533; Globulin 2.4 g/dL (1.3-4.6); Glomerular Filtration Rate 63.9 mL/min (90-130); Glucose 102 mg/dL (65-115); Lipase 39 U/L (13-60); Osmolality Calculated 294 mOsm/kg (285-295); Sodium 141 mmol/L (136-145); Total Bilirubin 0.5 mg/dL (0.15-1.2); Total Protein 6.2 g/dL (6.6-8.7)
[2023-08-20 16:37] VITALS: BP 111/54; PULSE 56; O2SAT 97
--- NOTE | 2023-08-20 16:52 | ECG_ITS ---
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 Measurements Intervals [place] Rate: 54 P: 40 NE: 200 QRS: 42 QRSD: 109 T: 34 QT: 421 QTc: 400 Interpretive Statements SINUS BRADYCARDIA Compared to ECG 08/20/2023 14:56:29 Sinus rhythm no longer present Electronically Signed On 08-20-2023 17:25:36 CDT by Handy Ariza M.D. [id number]
[2023-08-20 16:59] VITALS: BP 126/66; PULSE 56; O2SAT 95
== END 2023-08-20 17:01 | disposition home or self-care (01) ==
PROVIDERS: Emergency Medicine; Emergency Provider Nurse Practitioner Family; PCP Nurse Practitioner
DX: R07.89 Other chest pain (principal); J32.4 Chronic pansinusitis; Z79.82 Long term (current) use of aspirin; E78.5 Hyperlipidemia, unspecified; I10 Essential (primary) hypertension
CPT/HCPCS: 36415; 71045; 80053; 83690; 84484; 85025; 85610; 93005; 96372; 99285; J1100; J1885

== ENCOUNTER 2023-09-02 06:00 | Outpatient (RCR) | payer MEDICARE, MEDICAID, SELFPAY | END 2023-10-02 23:59 | disposition home or self-care (01) | LOC: APT 06:00 | PROVIDERS: PCP Nurse Practitioner; Visit Provider Podiatrist Foot & Ankle Surgery | DX: Z98.890 Other specified postprocedural states (principal) | CPT/HCPCS: 97110; 97112; 97140; 97530 ==

== ENCOUNTER → 2023-10-06 10:14 | Outpatient (BNVA) | payer OTHER, MEDICAID, SELFPAY | PROVIDERS: PCP Nurse Practitioner; Visit Provider Student in an Organized Health Care Education/Training Program | DX: M25.552 Pain in left hip; M25.562 Pain in left knee | CPT/HCPCS: 99213 ==

== ENCOUNTER 2023-10-12 06:00 | Outpatient (CLI) | payer OTHER, MEDICAID, SELFPAY | END 2023-10-12 23:59 | LOC: SPT 10-13 10:37 | PROVIDERS: PCP Nurse Practitioner; Visit Provider Podiatrist Foot & Ankle Surgery | DX: Z46.89 Encounter for fitting and adjustment of other specified devices (principal); M25.571 Pain in right ankle and joints of right foot | CPT/HCPCS: 99213; L1902 ==

== ENCOUNTER → 2023-10-12 13:15 | Outpatient (BNVA) | payer OTHER, MEDICAID, SELFPAY | PROVIDERS: PCP Nurse Practitioner; Visit Provider Podiatrist Foot & Ankle Surgery | DX: S82.831D Other fracture of upper and lower end of right fibula, subsequent encounter for closed fracture with routine healing; X58.XXXD Exposure to other specified factors, subsequent encounter; Z98.890 Other specified postprocedural states; M76.61 Achilles tendinitis, right leg; M72.2 Plantar fascial fibromatosis; M24.571 Contracture, right ankle | CPT/HCPCS: 73610 ==

== ENCOUNTER → 2023-10-22 10:27 | Outpatient (BNVA) | payer OTHER, MEDICAID, SELFPAY | PROVIDERS: PCP Nurse Practitioner; Visit Provider Student in an Organized Health Care Education/Training Program | DX: M17.0 Bilateral primary osteoarthritis of knee | CPT/HCPCS: 20610; 73560; 73565; 99213; J3301 ==

== ENCOUNTER → 2023-10-29 13:49 | Outpatient (BNVA) | payer MEDICARE, MEDICAID, SELFPAY | PROVIDERS: PCP Nurse Practitioner; Visit Provider Podiatrist Foot & Ankle Surgery | DX: M76.61 Achilles tendinitis, right leg; M72.2 Plantar fascial fibromatosis; M79.672 Pain in left foot; S82.831D Other fracture of upper and lower end of right fibula, subsequent encounter for closed fracture with routine healing; X58.XXXD Exposure to other specified factors, subsequent encounter | CPT/HCPCS: 99213 ==

== ENCOUNTER → 2023-11-25 10:06 | Outpatient (BNVA) | payer MEDICARE, SELFPAY | PROVIDERS: PCP Nurse Practitioner; Visit Provider Nurse Practitioner | DX: E11.9 Type 2 diabetes mellitus without complications (principal) | CPT/HCPCS: 80053; 80061; 82607; 83036 ==

== ENCOUNTER 2024-01-12 11:57 | Outpatient (CLI) | payer MEDICARE, MEDICAID, SELFPAY ==
--- NOTE | 2024-01-12 12:00 | MM_ITS ---
WS: [id number] BILATERAL 3D TOMOSYNTHESIS DIGITAL SCREENING MAMMOGRAPHY WITH CAD CLINICAL INFORMATION: SCREENING HISTORY: Screening mammogram. No current complaints. COMPARISON: 01/02/2023 TECHNIQUE: Bilateral CC and MLO views. FINDINGS: Scattered fibroglandular densities bilaterally. No suspicious focal mass, asymmetry, calcifications, or architectural distortion. No evidence of malignancy. Vascular calcification. MM/[place] [id number] IMPRESSION: DENSITY: There are scattered areas of fibroglandular density. BI-RADS: 2 - Benign. FOLLOW UP: 1 Year Follow-up Recommend return to annual screening mammography.
== END 2024-01-12 11:58 | disposition home or self-care (01) ==
PROVIDERS: PCP Nurse Practitioner; Visit Provider Nurse Practitioner
DX: Z12.31 Encounter for screening mammogram for malignant neoplasm of breast (principal); R92.323 Mammographic fibroglandular density, bilateral breasts; R92.1 Mammographic calcification found on diagnostic imaging of breast; L98.9 Disorder of the skin and subcutaneous tissue, unspecified
CPT/HCPCS: 77063; 77067; 88305

== ENCOUNTER → 2024-01-26 09:55 | Outpatient (BNVA) | payer MEDICARE, MEDICAID, SELFPAY | PROVIDERS: PCP Nurse Practitioner; Visit Provider Student in an Organized Health Care Education/Training Program | DX: Z71.89 Other specified counseling (principal); M25.552 Pain in left hip | CPT/HCPCS: 20610; 99213; J3301; J3490 ==

== ENCOUNTER → 2024-03-01 09:10 | Outpatient (BNVA) | payer MEDICARE, MEDICAID, SELFPAY | PROVIDERS: PCP Nurse Practitioner; Visit Provider Student in an Organized Health Care Education/Training Program | DX: M17.0 Bilateral primary osteoarthritis of knee (principal) | CPT/HCPCS: 20610; 99213; J3301 ==

== ENCOUNTER → 2024-04-11 09:59 | Outpatient (BNVA) | payer MEDICARE, MEDICAID, SELFPAY | PROVIDERS: PCP Nurse Practitioner; Visit Provider Nurse Practitioner | DX: E11.9 Type 2 diabetes mellitus without complications (principal); E78.5 Hyperlipidemia, unspecified; I10 Essential (primary) hypertension; E55.9 Vitamin D deficiency, unspecified | CPT/HCPCS: 80053; 80061; 82607; 83036; 84443; 85025 ==

== ENCOUNTER → 2024-04-21 09:22 | Outpatient (BNVA) | payer MEDICARE, SELFPAY | PROVIDERS: PCP Nurse Practitioner; Visit Provider Podiatrist Foot & Ankle Surgery | DX: M79.671 Pain in right foot (principal); S82.831A Other fracture of upper and lower end of right fibula, initial encounter for closed fracture; M76.61 Achilles tendinitis, right leg; M72.2 Plantar fascial fibromatosis; M24.573 Contracture, unspecified ankle; X58.XXXA Exposure to other specified factors, initial encounter | CPT/HCPCS: 73630; 99213 ==

== ENCOUNTER → 2024-06-02 11:10 | Outpatient (BNVA) | payer MEDICARE, SELFPAY | PROVIDERS: PCP Nurse Practitioner; Visit Provider Podiatrist Foot & Ankle Surgery | DX: Z98.890 Other specified postprocedural states; M76.61 Achilles tendinitis, right leg; M72.2 Plantar fascial fibromatosis; M79.672 Pain in left foot; M24.573 Contracture, unspecified ankle; M24.571 Contracture, right ankle | CPT/HCPCS: 99213 ==

== ENCOUNTER 2024-06-09 14:31 | Emergency (ER) | payer MEDICARE, SELFPAY ==
--- NOTE | 2024-06-09 14:34 | XR_ITS ---
WS: [id number] Portable AP upright chest, 06/09/2024 Clinical Data: cp Comparison: Portable chest, 08/20/2023 Findings: No nodules, masses or effusions are seen. The heart is normal. The pulmonary vascularity is not increased. No pneumonia or pneumothorax is seen. Bilateral orthopedic anchors are seen. XR/XR chest 1V portable [id number] Impression: Negative chest.
--- NOTE | 2024-06-09 14:37 | ECG_ITS ---
[facility] Test Date: 2024-06-09 Pat Name: Anjelica Neely Department: Room: Gender: Female Improvement Lead: : 1960 Requested By: Mehran Escoto Order Number: [id number] Alexis MD: Handy Ariza M.D. Measurements Intervals [place] Rate: 77 P: 61 NM: 173 QRS: 82 QRSD: 104 T: 47 QT: 384 QTc: 435 Interpretive Statements SINUS RHYTHM Compared to ECG 08/20/2023 16:52:51 Sinus bradycardia no longer present Electronically Signed On 06-09-2024 21:48:51 COMPUTER METHODS ANALYST by Handy Ariza M.D. [id number] [id number]
[2024-06-09 14:41] VITALS: BP 133/68; PULSE 73; RESP 16; TEMP 36.5; O2SAT 99; BMI 43.4
[2024-06-09 15:02] LABS: Basophils # 0.1 10^3/uL (0.0-0.1); Basophils % 1.3 %; Eosinophils # 0.6 10^3/uL (0.0-0.8); Eosinophils % 6.8 %; Hematocrit 42.8 % (36-47); Lymphocytes # 2.6 10^3/uL (0.8-4.8); Lymphocytes % 27.9 %; Mean Corpuscular Hemoglobin 29.2 pg (27-33); Mean Corpuscular Volume 91.3 fl (85-98); Mean Platelet Volume 11.8 fL (7.4-10.4); Monocytes % 10.4 %; Neutrophils # 4.94 10^3/uL (1.8-7.7); Neutrophils % 53.1 %; Nucleated Red Blood Cells % 0 %; Platelet Count 299 10^3/cmm (157-399); Red Blood Count 4.69 10^6/uL (3.85-5.65); Red Cell Distribution Width 12.4 % (12.1-15.1); White Blood Count 9.31 10^3/uL (3.29-11.43)
[2024-06-09 15:20] LABS: Troponin(5th) Baseline < 6 ng/L (0-10)
[2024-06-09 15:33] LABS: Alanine Aminotransferase 27 U/L (0-33); Albumin Level 4.3 g/dL (3.5-5.2); Alkaline Phosphatase 96 U/L (35-105); Anion Gap 15.8 (5-19); Aspartate Amino Transferase 23 U/L (0-32); Blood Urea Nitrogen 12 mg/dL (8-23); Calcium 9.4 mg/dL (8.5-10.5); Carbon Dioxide 25 mmol/L (22-29); Chloride 103 mmol/L (98-107); Creatinine Clr Calc Pharmacy 93.8107; Globulin 2.5 g/dL (1.3-4.6); Glomerular Filtration Rate 85.1 mL/min (90-130); Glucose 89 mg/dL (65-115); Lipase 52 U/L (13-60); Osmolality Calculated 289 mOsm/kg (285-295); Potassium 3.8 mmol/L (3.5-5.1); Sodium 140 mmol/L (136-145); Total Bilirubin 0.2 mg/dL (0.15-1.2); Total Protein 6.8 g/dL (6.6-8.7)
--- NOTE | 2024-06-09 16:34 | ECG_ITS ---
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 Measurements Intervals [place] Rate: 60 P: 40 [place]: 198 QRS: 34 QRSD: 109 T: 37 QT: 432 QTc: 432 Interpretive Statements SINUS RHYTHM Compared to ECG 06/09/2024 14:37:12 No significant changes Electronically Signed On 06-09-2024 22:14:22 COMMODITIES MANAGER by Handy Ariza M.D. [id number] [id number]
--- NOTE | 2024-06-09 16:45 | W.ED.CHESTPA ---
HPI - Chest Pain General: Chief Complaint: Chest Pain Stated Complaint: chest pain Time Seen by Provider: 06/09/24 16:25 History of Present Illness: 63-year-old female presents emergency room feeling weak chest pain that started couple days ago. She been having intermittent chest pain for over a week. It was worse today while she was walking around [facility]. She did get short of breath with it no diaphoresis. Patient is diabetic no known history of heart disease she is on baby aspirin and atorvastatin daily. Associated symptoms: Deny abdominal pain, dyspnea or fever(s) Related Data Home Medications ?Medication ?Instructions ?Recorded ?Confirmed cetirizine 10 mg tablet 10 mg PO DAILY 05/03/19 06/15/24 aspirin 81 mg tablet,delayed 81 mg PO DAILY 08/01/19 06/15/24 release cholecalciferol (vitamin D3) 25 25 mcg PO DAILY 01/18/20 06/15/24 mcg (1,000 unit) tablet (Vitamin D3) fluticasone propionate 50 See Rx Instructions .Route .COMPLEX 01/18/20 06/15/24 mcg/actuation nasal spray,suspension levocetirizine 5 mg tablet 5 mg PO DAILY 01/18/20 06/15/24 uxwholltjyxk-Tp-yojc-minerals 1 tab PO DAILY 01/18/20 06/15/24 (Multiple Vitamin, Womens tablet) vitamin E 1 cap PO DAILY 01/18/20 06/15/24 paroxetine HCl 40 mg tablet 40 mg PO DAILY 05/12/23 06/15/24 trazodone 100 mg tablet 100 mg PO DAILY 05/12/23 06/15/24 Previous Rx's ?Medication ?Instructions ?Recorded nitroglycerin 0.4 mg sublingual 0.4 mg sublingual Q5M PRN chest 02/02/20 tablet pain #25 tabs estradiol 0.01% (0.1 mg/gram) 1 g vaginal .weekly #42.5 grams 01/31/21 vaginal cream (Estrace) epinephrine 0.3 mg/0.3 mL 0.3 mg (0.3 mL) IM Q10M PRN 07/23/23 injection syringe anaphylaxis #2 ea albuterol sulfate 90 mcg/actuation 1 inh inhalation QID PRN shortness 07/30/23 aerosol inhaler of breath or wheezing #8.5 grams albuterol sulfate 2.5 mg/3 mL 2.5 mg (3 mL) inhalation QID PRN 08/03/23 (0.083 %) solution for nebulization shortness of breath or wheezing #75 mL budesonide 0.5 mg/2 mL suspension 0.5 mg (2 mL) inhalation BID #120 08/03/23 for nebulization (Pulmicort) mL hydrocortisone 2.5 % topical cream 1 applic DC DAILY PRN hemorrhoids 09/16/23 with perineal applicator #30 grams (Anusol-HC) mupirocin 2 % topical ointment 1 applic topical BID #22 grams 09/16/23 ASO Brace #1 ea 10/12/23 montelukast 10 mg tablet 10 mg PO DAILY #90 tabs 11/19/23 (Singulair) atorvastatin 20 mg tablet (Lipitor) 20 mg PO DAILY #90 tabs 01/21/24 meloxicam 15 mg tablet 15 mg PO DAILY #90 tabs 01/21/24 pantoprazole 20 mg tablet,delayed 20 mg PO DAILY #90 tabs 01/21/24 release (Protonix) zonisamide 50 mg capsule 50 mg PO BID #180 caps 01/21/24 acarbose 100 mg tablet 100 mg PO TID #270 tabs 03/29/24 hydroxyzine pamoate 25 mg capsule 25 mg PO Q6H PRN itching and 04/04/24 anxiety #270 caps budesonide-formoterol HFA 160 2 puff inhalation Q12H #10.2 grams 05/10/24 mcg-4.5 mcg/actuation aerosol inhaler (Symbicort) famotidine 40 mg tablet (Pepcid) 40 mg PO DAILY #90 tabs 05/10/24 furosemide 20 mg tablet (Lasix) 20 mg PO QAM #90 tabs 05/10/24 metformin 500 mg tablet,extended 1,000 mg (2 x 500 mg) PO QDAY #180 05/10/24 release 24hr (osmotic) tabs diltiazem HCl 60 mg tablet 60 mg PO .every 12 hours #180 tabs 05/24/24 guaifenesin 1,200 mg tablet, 1,200 mg PO BID #24 tabs 05/24/24 extended release 12 hr (Mucinex) valsartan 320 mg tablet (Diovan) 320 mg PO DAILY #90 tabs 05/24/24 isosorbide mononitrate 30 mg 30 mg PO DAILY #30 tabs 06/09/24 tablet,extended release 24 hr Allergies Allergy/AdvReac Type Severity Reaction Status Date / Time hydrochlorothiazide Allergy ADR-Itching Verified 06/15/24 13:18 Review of Systems Const: Denies: fever(s) or chills Card: Denies: chest pain Resp: Denies: dyspnea GI: Denies: abdominal pain : Denies: dysuria, urinary frequency or urinary urgency Musc: Denies: neck pain or back pain Skin/Breast: Denies: rash PFSH ED PFSH: Medical History Allergic bronchitis Insomnia Right carpal tunnel syndrome Carpal tunnel syndrome of left wrist Allergy-induced asthma Psychiatric care Obesity, morbid, BMI 40.0-49.9 Urolithiasis Multistone Former. 13mm LEFT UPJ stone cleared with ESWL in 2018 2.5 mm RIGHT UVJ stone spontaneously passed 2020 Dietary stone risk reduction strategies employed Renal calculi History of a large stone requiring ESWL but with complete resolution eventually. Encourage dietary modification for stone risk reduction. Atrophy of vulva History of kidney stones GERD (gastroesophageal reflux disease) Insomnia Osteoarthritis Hyperlipidemia Hypertension Major depressive disorder, recurrent, moderate Surgical History History of esophagogastroduodenoscopy (EGD) History of colonoscopy October, at [place], [place] no record but her personal history History of tonsillectomy 05/08/2021 History of lithotripsy H/O repair of right rotator cuff History of tubal ligation H/O repair of left rotator cuff H/O lateral meniscus repair of right knee History of partial hysterectomy without BSO History of left breast biopsy History of cholecystectomy October 22, 2023 results in chart Family History Father , AT AGE 54 Heart disease Mother Osteoarthritis Other CAD (coronary artery disease) Cancer Diabetes Hypertension Osteoporosis Rheumatoid arthritis Denies family history of Stroke Social History Smoking and tobacco/nicotine status: never used tobacco/nicotine Second hand smoke exposure: No Alcohol intake: never Substance/Drug Use: never Adopted: No Caregiver/support person: No Lives independently: Yes Household members: spouse Housing: House Marital status: service: No Current occupational status: disabled Do you think of yourself as: Straight/Heterosexual Current gender identity: Female Physical Exam Const: COMMON NORMALS: no acute distress GENERAL APPEARANCE: cooperative and comfortable ORIENTATION/CONSCIOUSNESS: Yes awake, Yes oriented to person, Yes oriented to place and Yes oriented to time HENMT: COMMON NORMALS: normocephalic, atraumatic and hearing grossly normal bilaterally HEAD & SCALP: normocephalic and atraumatic Resp: COMMON NORMALS: normal respiratory effort, No retractions, No use of accessory muscles and clear to auscultation bilaterally AUSCULTATION: clear to auscultation bilaterally Cardio: COMMON NORMALS: regular rate, regular rhythm and No murmurs present (Cardio) RATE: regular rate RHYTHM: regular rhythm GI: COMMON NORMALS: Soft to palpation and No hepatosplenomegaly present AUSCULTATION: Yes normoactive bowel sounds PALPATION: Yes Soft to palpation, No Tenderness to palpation present (GI), No Guarding due to palpation present (GI) and Yes No hepatosplenomegaly present Extremity: COMMON NORMALS: normal to inspection, capillary refill normal, no clubbing, cyanosis or edema, no calf tenderness and no pedal edema Neuro: SENSORIUM/ORIENTATION: Yes oriented to person, Yes oriented to place and Yes oriented to time Skin: COMMON NORMALS: no rashes or lesions noted GENERAL SKIN EXAM: no rashes or lesions noted Course Vital Signs: Vital signs: Vital Signs Temperature 97.7 F 06/09/24 14:41 Pulse Rate 65 06/09/24 18:39 Respiratory Rate 16 06/09/24 18:39 Blood Pressure 161/86 06/09/24 18:39 Pulse Oximetry 96 06/09/24 18:39 MDM - Chest Pain Medical Decision Making Discharge home. Cardiac enzymes negative no acute changes on EKG. Blood pressure is elevated will start on isosorbide mononitrate. 30 mg daily. Follow-up with primary care schedule outpatient cardiac stress testing. Lab Data 06/09/24 14:55 06/09/24 14:55 Radiology Impressions Chest X-Ray 06/09/24 14:34 Impression: Negative chest. Laboratory Results WBC 9.31 10^3/uL (3.29-11.43) 06/09/24 14:55 RBC 4.69 10^6/uL (3.85-5.65) 06/09/24 14:55 Hgb 13.70 g/dL (11.27-16.99) 06/09/24 14:55 Hct 42.8 % (36-47) 06/09/24 14:55 MCV 91.3 fl (85-98) 06/09/24 14:55 MCH 29.2 pg (27-33) 06/09/24 14:55 MCHC 32.0 g/dL (30-55) 06/09/24 14:55 RDW 12.4 % (12.1-15.1) 06/09/24 14:55 Plt Count 299 10^3/cmm (157-399) 06/09/24 14:55 MPV 11.8 fL (7.4-10.4) H 06/09/24 14:55 Neut % (Auto) 53.1 % 06/09/24 14:55 Lymph % (Auto) 27.9 % 06/09/24 14:55 [facility] % (Auto) 10.4 % 06/09/24 14:55 Eos % (Auto) 6.8 % 06/09/24 14:55 Baso % (Auto) 1.3 % 06/09/24 14:55 Neut # (Auto) 4.94 10^3/uL (1.8-7.7) 06/09/24 14:55 Lymph # (Auto) 2.6 10^3/uL (0.8-4.8) 06/09/24 14:55 [facility] # (Auto) 1.0 10^3/uL (0.2-0.9) H 06/09/24 14:55 Eos # (Auto) 0.6 10^3/uL (0.0-0.8) 06/09/24 14:55 Baso # (Auto) 0.1 10^3/uL (0.0-0.1) 06/09/24 14:55 Nucleated RBC % (auto) 0 % 06/09/24 14:55 Nucleated RBCs # 0.0 /100WBC 06/09/24 14:55 Sodium 140 mmol/L (136-145) 06/09/24 14:55 Potassium 3.8 mmol/L (3.5-5.1) 06/09/24 14:55 Chloride 103 mmol/L (98-107) 06/09/24 14:55 Carbon Dioxide 25 mmol/L (22-29) 06/09/24 14:55 Anion Gap 15.8 (5-19) 06/09/24 14:55 BUN 12 mg/dL (8-23) 06/09/24 14:55 Creatinine 0.7 mg/dL (0.5-0.9) 06/09/24 14:55 GFR Calculation 85.1 mL/min (90-130) L 06/09/24 14:55 Glucose 89 mg/dL (65-115) 06/09/24 14:55 Calculated Osmolality 289 mOsm/kg (285-295) 06/09/24 14:55 Calcium 9.4 mg/dL (8.5-10.5) 06/09/24 14:55 Total Bilirubin 0.2 mg/dL (0.15-1.2) 06/09/24 14:55 AST 23 U/L (0-32) 06/09/24 14:55 ALT 27 U/L (0-33) 06/09/24 14:55 Alkaline Phosphatase 96 U/L (35-105) 06/09/24 14:55 Troponin T Baseline < 6 ng/L (0-10) 06/09/24 14:55 Troponin T 120 Minute 6.00 ng/L (0-10) 06/09/24 16:55 Delta Troponin T 0.74321 ABS# (0-10) 06/09/24 16:55 Total Protein 6.8 g/dL (6.6-8.7) 06/09/24 14:55 Albumin 4.3 g/dL (3.5-5.2) 06/09/24 14:55 Globulin 2.5 g/dL (1.3-4.6) 06/09/24 14:55 Lipase 52 U/L (13-60) 06/09/24 14:55 All radiology interpretation(s) finalized by discharge Clincial Decision Support The following clinical decision support tools were used to aid in care of the patient HEART Score -> History: Slightly Suspicous, EKG: Normal, Age: 45-64 yrs, Risk Factors: 1 or 2 Risk Factors, Troponin: Baseline Trop <16 ng/L. Resulting HEART Score: 2. Discharge Plan Discharge Patient Disposition: Home Clinical Impression: Atypical chest pain Condition: Stable Prescriptions: New isosorbide mononitrate 30 mg tablet extended release 24 hr 30 mg PO DAILY Qty: 30 0RF No Action cetirizine 10 mg tablet 10 mg PO DAILY nitroglycerin 0.4 mg tablet, sublingual 0.4 mg SUBLINGUAL Q5M PRN (Reason: chest pain) Qty: 25 0RF Rx Instructions: do not exceed 3 doses per episode aspirin 81 mg tablet,delayed release (DR/EC) 81 mg PO DAILY estradiol [Estrace] 0.01 % (0.1 mg/gram) cream 1 g vaginal .weekly Qty: 42.5 2RF budesonide [Pulmicort] 0.5 mg/2 mL suspension for nebulization 0.5 mg inhalation BID Qty: 120 0RF albuterol sulfate 2.5 mg /3 mL (0.083 %) solution for nebulization 2.5 mg inhalation QID PRN (Reason: shortness of breath or wheezing) Qty: 75 2RF albuterol sulfate 90 mcg/actuation HFA aerosol inhaler 1 inh inhalation QID PRN (Reason: shortness of breath or wheezing) Qty: 8.5 0RF montelukast [Singulair] 10 mg tablet 10 mg PO DAILY Qty: 90 1RF mupirocin 2 % ointment 1 applic topical BID Qty: 22 0RF Rx Instructions: apply to left nostril hydrocortisone [Anusol-HC] 2.5 % cream with perineal applicator 1 applic DC DAILY PRN (Reason: hemorrhoids) Qty: 30 0RF (DME) ASO Brace See Rx Instructions .Route .MEDSUPPLY Qty: 1 0RF Rx Instructions: As directed acarbose 100 mg tablet 100 mg PO TID Qty: 270 0RF Rx Instructions: take before food epinephrine 0.3 mg/0.3 mL syringe 0.3 mg IM Q10M PRN (Reason: anaphylaxis) Qty: 2 3RF Rx Instructions: for 2 doses metformin 500 mg tablet extended release 24 hr 1,000 mg PO QDAY Qty: 180 1RF famotidine [Pepcid] 40 mg tablet 40 mg PO DAILY Qty: 90 0RF furosemide [Lasix] 20 mg tablet 20 mg PO QAM Qty: 90 0RF budesonide-formoterol [Symbicort] 160-4.5 mcg/actuation HFA aerosol inhaler 2 puff inhalation Q12H Qty: 10.2 2RF valsartan [Diovan] 320 mg tablet 320 mg PO DAILY Qty: 90 1RF diltiazem HCl 60 mg tablet 60 mg PO .every 12 hours Qty: 180 0RF guaifenesin [Mucinex] 1,200 mg tablet extended release 12hr 1,200 mg PO BID Qty: 24 0RF atorvastatin [Lipitor] 20 mg tablet 20 mg PO DAILY Qty: 90 1RF meloxicam 15 mg tablet 15 mg PO DAILY Qty: 90 1RF pantoprazole [Protonix] 20 mg tablet,delayed release (DR/EC) 20 mg PO DAILY Qty: 90 1RF zonisamide 50 mg capsule 50 mg PO BID Qty: 180 1RF hydroxyzine pamoate 25 mg capsule 25 mg PO Q6H PRN (Reason: itching and anxiety ) Qty: 270 0RF fluticasone propionate 50 mcg/actuation [place],Suspension See Rx Instructions .ROUTE .COMPLEX Rx Instructions: intranasally USE DIRECTED. Multiple Vitamin, Womens Tablet 1 tab PO DAILY cholecalciferol (vitamin D3) [Vitamin D3] 25 mcg (1,000 unit) Tablet 25 mcg PO DAILY levocetirizine 5 mg Tablet 5 mg PO DAILY Rx Instructions: mg USE DIRECTED. vitamin E 1 cap PO DAILY paroxetine HCl 40 mg tablet 40 mg PO DAILY Rx Instructions: TAKE 1 TABLET BY MOUTH ONCE DAILY trazodone 100 mg tablet 100 mg PO DAILY Rx Instructions: TAKE 1 TABLET BY MOUTH AT BEDTIME Discharge Orders: Discharge ED (Routine); Ordered 06/09/24 Ordered By: Dick Carpio Referrals: Mary Silveira, [facility] [Primary Care Provider] - Discharge Diet: Usual diet Discharge Activity: Limit activity as instructed Patient Instructions: Opioid Safety, Pain Management Activity Restrictions/Additional Instructions: Thank you for choosing [facility] for your healthcare needs today. It is very important that you follow up as instructed or that you return to the Emergency Department should you have concerns or if your condition changes or worsens in any way. You are seen in the emergency room with a complaint of chest discomfort your EKG does not show any acute changes and your cardiac enzymes were normal. Recommend that you continue on aspirin daily will also have you start on isosorbide mononitrate 30 mg once daily mental health case manager will make arrangements for you had an outpatient Lexiscan sestamibi stress test. If you have any persistent chest pain return to the emergency room. Print Language: Gambian Coding Level of Care Code ED Building Energy Retrofit Technician for Ashlee Arellano
[2024-06-09] MEDS: aspirin 81 mg Chew Tablet 324 MG PO (17:41)
[2024-06-09 17:42] VITALS: BP 156/84; PULSE 73; RESP 16; O2SAT 98
[2024-06-09 17:59] LABS: Troponin 5 2HR Delta 0.00001 ABS# (0-10)
[2024-06-09 18:35] VITALS: BP 161/86; PULSE 65; RESP 16; O2SAT 96
[2024-06-09 18:39] VITALS: BP 161/86; PULSE 65; RESP 16; O2SAT 96
== END 2024-06-09 18:40 | disposition home or self-care (01) ==
PROVIDERS: Emergency Medicine; Emergency Provider Family Medicine; PCP Nurse Practitioner
DX: R07.89 Other chest pain (principal); Z79.82 Long term (current) use of aspirin; E78.5 Hyperlipidemia, unspecified; I10 Essential (primary) hypertension
CPT/HCPCS: 36415; 71045; 80053; 83690; 84484; 85025; 93005; 99285

== ENCOUNTER 2024-06-13 06:00 | Outpatient (RCR) | payer MEDICARE, SELFPAY | END 2024-07-01 23:59 | disposition home or self-care (01) | LOC: APT 06:00 | PROVIDERS: PCP Nurse Practitioner; Visit Provider Podiatrist Foot & Ankle Surgery | DX: M76.61 Achilles tendinitis, right leg (principal) | CPT/HCPCS: 97035; 97110; 97140; 97163 ==

== ENCOUNTER → 2024-06-15 09:50 | Outpatient (BNVA) | payer MEDICARE, SELFPAY | PROVIDERS: PCP Nurse Practitioner; Visit Provider Student in an Organized Health Care Education/Training Program | DX: Z71.89 Other specified counseling (principal); M70.62 Trochanteric bursitis, left hip | CPT/HCPCS: 20610; 99213; J3301; J3490 ==

== ENCOUNTER 2024-06-17 12:29 | Outpatient (CLI) | payer MEDICARE, SELFPAY ==
--- NOTE | 2024-06-17 14:15 | US_ITS ---
WS: [id number] ULTRASOUND SOFT TISSUES RIGHT chest wall HISTORY: D17.9 - Benign lipomatous neoplasm, unspecified COMPARISON: None available. TECHNIQUE: 2-D and color Doppler imaging is submitted. Palpable area along the RIGHT lateral chest wall corresponds to a complex cystic mass with fluid/fluid level and thick wall measuring 0.9 x 1.1 x 0.9 cm. Minimal adjacent vascularity but no central vascularity. This is a very superficial nodule. US/US chest [id number] IMPRESSION: Complex cystic nodule with fluid-fluid level corresponds to the palpable abnorm ality in the RIGHT chest wall. Favor this is probably an epidermoid or sebaceou s cyst that may be infected or with small amount of hemorrhage. Appears benign in appearance. There is no increased vascularity. If this mass continues to inc rease in size surgical excision may be of benefit.
== END 2024-06-17 12:30 | disposition home or self-care (01) ==
PROVIDERS: PCP Nurse Practitioner; Visit Provider Nurse Practitioner
DX: D17.9 Benign lipomatous neoplasm, unspecified (principal); R93.89 Abnormal findings on diagnostic imaging of other specified body structures
CPT/HCPCS: 76604

== ENCOUNTER 2024-06-28 09:02 | Outpatient (CLI) | payer MEDICARE, SELFPAY ==
--- NOTE | 2024-06-28 09:45 | USR_ITS ---
PROCEDURE INFORMATION: Exam: US Bilateral Noninvasive Physiologic Study of the Lower Extremity Arteries, Limited Exam date and time: 06/28/2024 10:03 AM Age: 63 years old Clinical indication: Pain; Leg, upper and leg, lower; Bilateral; Additional info: Bilat leg pain TECHNIQUE: Imaging protocol: Bilateral Limited bilateral noninvasive physiologic studies of lower extremity arteries. Waveforms were obtained and evaluated. Images were documented and archived. Exam is limited. COMPARISON: MR ankle RT wo con* [id number] 01/15/2023 11:39 AM FINDINGS: Right Ankle-Brachial Index: 1.3. Left Ankle-Brachial Index: 1.35. US/CV ankle brachial index [id number] IMPRESSION: No evidence of stenosis or occlusion in the lower extremity.
== END 2024-06-28 09:03 | disposition home or self-care (01) ==
PROVIDERS: PCP Nurse Practitioner; Visit Provider Internal Medicine Cardiovascular Disease
DX: M79.604 Pain in right leg (principal); M79.605 Pain in left leg
CPT/HCPCS: 93922

== ENCOUNTER → 2024-06-30 10:47 | Outpatient (BNVA) | payer MEDICARE, MEDICAID, SELFPAY | PROVIDERS: PCP Nurse Practitioner; Visit Provider Podiatrist Foot & Ankle Surgery | DX: M76.61 Achilles tendinitis, right leg (principal); M24.571 Contracture, right ankle | CPT/HCPCS: 99213 ==

== ENCOUNTER 2024-07-02 06:00 | Outpatient (RCR) | payer MEDICARE, SELFPAY | END 2024-08-01 23:59 | disposition home or self-care (01) | LOC: APT 06:00 | PROVIDERS: PCP Nurse Practitioner; Visit Provider Podiatrist Foot & Ankle Surgery | DX: M76.61 Achilles tendinitis, right leg (principal) | CPT/HCPCS: 97035; 97110; 97530 ==

== ENCOUNTER → 2024-07-06 09:43 | Outpatient (BNVA) | payer MEDICARE, SELFPAY | PROVIDERS: PCP Nurse Practitioner; Visit Provider Student in an Organized Health Care Education/Training Program | DX: M17.0 Bilateral primary osteoarthritis of knee (principal) | CPT/HCPCS: 20610; 99213; J3301 ==

== ENCOUNTER 2024-07-18 08:06 | Outpatient (CLI) | payer MEDICARE, SELFPAY ==
[2024-07-18 08:09] VITALS: BMI 41.5
--- NOTE | 2024-07-18 08:09 | ECG_ITS ---
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 The perfusion scan will be documented separately. DATA: Baseline heart rate was 63 beats per minute. Baseline blood pressure was 141/92 millimeters of mercury. Target heart rate was 159. Maximum heart rate achieved was 88. which was 55 % of the predicted target heart rate. Maximum blood pressure was 150/92 millimeters of mercury. The reason for ending the test was completion of the protocol. The patient did not experience any symptoms. ELECTROCARDIOGRAM: BASELINE: Sinus rhythm. Normal axis. Otherwise, no ST-T changes suggestive of ischemia noted. No arrhythmia noted. EXERCISE: After Lexiscan injection, no ST-T changes suggestive of ischemic noted. No arrhythmia noted. CONCLUSION: Please note due to baseline abnormality of the EKG specificity and sensitivity of the EKG portion of LexiScan MIBI stress test will be low 1. EKG not suggestive of ischemia 2. Lexiscan injection unremarkable. 3. Perfusion scan will be documented separately. Electronically Signed On 08-14-2024 21:12:55 CDT by MARYLOU POST [email or web address] [email or web address]
--- NOTE | 2024-07-18 08:09 | NMCV_ITS ---
NM nancy perf SPECT r/s* [id number] Anjelica Neely Age: 63 Gender: F : 1960 Exam Date: 07/18/2024 08:09 Ordering Phys: Marylou Kent MD ([email or web address]) Technologist: LANDON Bales Exam Location: [facility] Indications: cp STRESS TEST Please [facility] for full findings IMAGE PROTOCOL Rest/Stress 1 Lexiscan Day Radiopharmaceutical Dose (mCi) Administration Site Administered by Rest: Tc-99m 11 IV LANDON Bales Sestamibi Stress:Tc-99m 32.3 IV LANDON Salmon Sestamibi Rest: 18-Jul-2024 60 Discovery 630 Stress: 18-Jul-2024 30 Discovery 630 0.4mg Lexiscan. 0.4mg Lexiscan. SPECT RESULTS Technical Quality: Good Raw Data Analysis: Normal Image Corrections: No attenuation or motion correction applied Summed Stress Score: 2 Summed Rest Score: 0 Summed Difference Score: 2 PERFUSION FINDINGS Small area of slightly decreased tracer uptake in the mid anterolateral and inferolateral segments. Some reversibility was noted in this region at rest FUNCTIONAL RESULTS (calculated via Gated SPECT) Stress Image LV EF (%): 69 Stress EDV (mL):78 TID: 0.98 Stress ESV (mL):24 FUNCTIONAL FINDINGS: Segmental wall motion analysis revealing no gross wall motion abnormalities IMPRESSIONS 1. Myocardial perfusion imaging revealing small area of reversible defect involving the mid anterolateral and inferolateral region suggesting ischemia in distribution of the left circumflex artery with the summed difference score of 2 2. Normal LV ejection fraction of 69% with 3. LV wall motion analysis revealing no gross wall motion abnormalities. 4. Normal LV volume Compared to the previous study from 09/20/2018, the area of ischemia appears to be in Dr Jose Guillen MD FAC (Electronically Signed) Final Date: 18 July 2024 17:00 S
[2024-07-18] MEDS: regadenoson 0.4 Mg/5 ml Syringe IVP (09:45)
[2024-07-18 09:58] VITALS: BP 138/85; PULSE 76
== END 2024-07-18 08:07 | disposition home or self-care (01) ==
LOC: CDL 08:07
PROVIDERS: PCP Nurse Practitioner; Visit Provider Internal Medicine Cardiovascular Disease
DX: R07.9 Chest pain, unspecified (principal); R93.1 Abnormal findings on diagnostic imaging of heart and coronary circulation
CPT/HCPCS: 36415; 78452; 93017; 96374; A9500; J2785

== ENCOUNTER → 2024-07-21 12:03 | Outpatient (BNVA) | payer MEDICARE, SELFPAY | PROVIDERS: PCP Nurse Practitioner; Visit Provider Nurse Practitioner | DX: R10.32 Left lower quadrant pain (principal) | CPT/HCPCS: 80053; 85025 ==

== ENCOUNTER 2024-08-02 06:00 | Outpatient (RCR) | payer MEDICARE, SELFPAY | END 2024-08-31 23:59 | disposition home or self-care (01) | LOC: APT 06:00 | PROVIDERS: PCP Nurse Practitioner; Visit Provider Podiatrist Foot & Ankle Surgery | DX: M76.61 Achilles tendinitis, right leg (principal) | CPT/HCPCS: 97035; 97110; 97112; 97530 ==

== ENCOUNTER → 2024-08-08 13:28 | Outpatient (BNVA) | payer MEDICARE, SELFPAY | PROVIDERS: PCP Nurse Practitioner; Visit Provider Podiatrist Foot & Ankle Surgery | DX: M76.61 Achilles tendinitis, right leg (principal); M24.571 Contracture, right ankle | CPT/HCPCS: 99213 ==

== ENCOUNTER 2024-08-10 14:15 | Outpatient (CLI) | payer MEDICARE, SELFPAY ==
[2024-08-10] MEDS: iohexol 350 mg/mL 500 mL Btl (per mL) PO (15:00)
--- NOTE | 2024-08-10 15:15 | CT_ITS ---
WS: [id number] CT ABDOMEN PELVIS TECHNIQUE: Contrast-enhanced CT of the abdomen and pelvis with coronal and sagittal reformatted images. CLINICAL INFORMATION: R10.32 - Left lower quadrant pain COMPARISON: DLP: 926.[address] scans at [facility] use at least one of these dose optimization techniques: automated exposure control; mA and/or kV adjustment per patient size (includes targeted exams where dose is matched to clinical indication); or iterative reconstruction. FINDINGS: Prior hysterectomy. Cholecystectomy. Sigmoid diverticulosis. Small amount of inflammatory stranding and edema in the LEFT lower quadrant about the sigmoid colon compatible with acute diverticulitis. Small adjacent focus of air from a perforated diverticulum with a small amount of fluid. No drainable fluid collection or abscess. Recommend follow-up to resolution. Normal appendix in the RIGHT lower quadrant. Fatty liver. Normal portal vein and splenic vein. Normal pancreas. Adrenal glands are normal. No hydronephrosis. Small RIGHT renal cyst. Lung bases are well aerated. Small esophageal hiatal hernia. Normal caliber abdominal aorta. Aortic calcification. CT/CT abdomen pelvis w con* [id number] IMPRESSION: 1. Inflammatory stranding and edema about the sigmoid colon in the LEFT lower quadrant compatible with acute diverticulitis. 2. Small adjacent focus of air with trace fluid. Recommend follow-up to to en sure resolution 3. Fatty liver. 4. Prior cholecystectomy and hysterectomy. Notified JACKIE Olmstead at 08/11/2024 9:39 AM.
[2024-08-10] MEDS: iohexol 350 mg/mL 500 mL Btl (per mL) IV (15:26)
== END 2024-08-10 14:16 | disposition home or self-care (01) ==
LOC: RAD 14:17
PROVIDERS: PCP Nurse Practitioner; Visit Provider Nurse Practitioner
DX: R10.32 Left lower quadrant pain (principal); K63.89 Other specified diseases of intestine; K76.0 Fatty (change of) liver, not elsewhere classified; Z90.49 Acquired absence of other specified parts of digestive tract; Z90.710 Acquired absence of both cervix and uterus; K57.30 Diverticulosis of large intestine without perforation or abscess without bleeding; N28.1 Cyst of kidney, acquired; K44.9 Diaphragmatic hernia without obstruction or gangrene; I70.0 Atherosclerosis of aorta
CPT/HCPCS: 74177

== ENCOUNTER 2024-08-11 06:10 | Outpatient (CLI) | payer MEDICARE, SELFPAY ==
[2024-08-11] VITALS (13 sets, daily range): BP systolic 122–152; BP diastolic 49–89; PULSE 60–81; RESP 15–22; TEMP 36.4; O2SAT 93–98; BMI 43.8
[2024-08-11] MEDS: aspirin 325 mg Tablet PO (06:30)
[2024-08-11] MEDS: diphenhydrAMINE 50 mg Capsule PO (06:30)
[2024-08-11 06:45] LABS: Basophils # 0.1 10^3/uL (0.0-0.1); Basophils % 1.2 %; Eosinophils # 0.4 10^3/uL (0.0-0.8); Eosinophils % 3.8 %; Hematocrit 40.5 % (36-47); Lymphocytes # 2.8 10^3/uL (0.8-4.8); Lymphocytes % 26.6 %; Mean Corpuscular HGB Conc 32.1 g/dL (30-55); Mean Corpuscular Hemoglobin 29.4 pg (27-33); Mean Corpuscular Volume 91.6 fl (85-98); Mean Platelet Volume 11.2 fL (7.4-10.4); Monocytes # 1.5 10^3/uL (0.2-0.9); Neutrophils # 5.66 10^3/uL (1.8-7.7); Neutrophils % 53.1 %; Nucleated Red Blood Cells % 0 %; Platelet Count 403 10^3/cmm (157-399); Red Blood Count 4.42 10^6/uL (3.85-5.65); Red Cell Distribution Width 13.7 % (12.1-15.1); White Blood Count 10.65 10^3/uL (3.29-11.43)
--- NOTE | 2024-08-11 07:00 | XACV_ITS ---
Exam Room: 2 Ht: 155 cm Wt: 105 kg BSA: 2.19 m2 Gender: Female : 1960 Any Known Allergies: Other Exam Priority: Routine Procedure(s): Procedure Description: Diagnostic procedure Procedure Description: Left Heart Catheterization Procedure Description: Left ventriculography Procedure Description: Coronary Angiography GRACIELAYoli LORENZO; Diagnostic Cath Status: Elective Diagnostic Findings * No disease noted in the Left Main, Left Anterior Descending, Right, or Circumflex coronary arteries. * Coronary angiography shows right dominance. Conclusions 1. No disease noted in the Left Main, Left Anterior Descending, Right, or Circumflex coronary arteries. 2. All pollock are normal. 3. Hyperdynamic left ventricular systolic function. Ejection fraction of 70%. Recommendations * Continue current medical management and risk factor modification. Diagnostic RX Recommendation: medical therapy and/or counseling Ventriculography Ejection Fraction: 70.0 % Pressures Phase:Rest AO : 120 / 74 ( 95 ) @ 9:48:00 AM 119 / 74 ( 95 ) @ 9:48:00 AM LV : 131 / 3 / 24 @ 9:47:00 AM 125 / 5 / 23 @ 9:48:00 AM 125 / 7 / 23 @ 9:48:00 AM Valves Phase:DefaultPhase AV : 6.0 @ 8:56:51 AM AV Mean Gradient: 14.0 @ 8:56:51 AM Clinical Evaluation EBL: 5mL-10mL Procedural Details Procedure Consent Obtained. Current Diagnosis : Chest Pain. Pre-Procedure Time Out. Identified patient by full name and date of as verbalized by the patient/guarantor. Does the consent match the physician's order: Yes. Accurate & Complete Informed Consent: Yes. Inpatient/Outpatient History & Physical on Chart: Yes. If H&P is completed, is and addenduem needed: No; If yes, is the addendum complete: N/A. Visualize and Verify Site with Patient/Guarantor: N/A. Relevant Radiology Images available: Yes. Pre-op teaching completed and patient verbalized understanding. The risks, benefits, and alternatives of sedation and/or procedure were discussed by physician. The patient agrees to continue. Procedure started. [facility] Clinical Fraility Score: 3: Managing Well. 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 Chest Pain Symptom Assessment: Typical Angina Symptoms. Correct patient, site and procedure confirmed by cath team. Current diagnosis: Chest Pain. PERRLA. Strong, equal hand acid strength inspector bilaterally. Lungs clear x 5 lobes. IV Site on Arrival: 20 gauge in the left anticubital. IV Fluids: 0.9% NaCl at KVO. 0 mL infused prior to cath laboratory technician. Pre Procedural Pulses: right dorsalis pedis was 1+. Pre Procedural Pulses: left dorsalis pedis was 3+. Pre Procedural Pulses: right posterior tibial was 1+. Pre Procedural Pulses: left posterior tibial was 3+. Pre Procedural Pulses: bilateral radial was 2+. Oxygen started at 2liters/min via nasal canula. right groin was prepped with chloroprep then draped in the usual sterile fashion. right radial was prepped with chloroprep then draped in the usual sterile fashion. Baseline sample Acquired. HR: 71 BPM. Physician arrived. Physician scrubbed in. Immediate Pre-Procedure Time Out. Correct Patient: Yes; Correct Procedure: Yes; Correct Site: Yes; Correct Patient Position: Yes; Correct Supplies: Yes; Dried Flammable Prep: Yes; Blood Products Available: N/A;. Lidocaine 1% infiltrated to the right groin. Arterial access obtained. A 5 turkish Adam catheter in over wire. Multiple views taken of right coronary artery. Multiple views taken of left coronary artery. Catheter removed over the exchange wire. EDP Sample taken: LV 131/3,24; HR: 63 BPM; SpO2: 97%. LV gram performed in DONOVAN @ 10 mL/second for a total of 30 mL. EDP Sample taken: LV 125/5,23; HR: 63 BPM; SpO2: 97%. Pullback taken: LV 125/7,23; AO 120/74(95); Mean: 14mmHg, Peak to Peak: 6mmHg, SEP: 6sec/min; HR: 65 BPM; SpO2: 97%. Catheter removed over the exchange wire. Post Procedure: Pulses reassessed and unchanged. PERRLA. Strong, equal hand acid strength inspector bilaterally. A TR Band was successful obtaining hemostatsis at the Right Radial artery insertion site. No VTE prophylaxis required. Medication's Wasted: Lidocaine 1% = 18 mL. Medication's Wasted: Nitro = 49.7 mcg. Medication's Wasted: Heparin = 1000 units. Total IV fluids: 27 mL. Medication's Wasted: Other = Fentanyl 50 mcg. Post-op diagnosis: Non-obstructive CAD. Complications: None. Estimated blood loss: 5mL-10mL. Responsiveness - Normal response to verbal stimuli; alert and oriented, PERRLA. Vital chart was stopped. Airway - Unaffected, no intervention required; spontaneous ventilation. Circulation: W/N/L, pulses unchanged. Nausea/Vomiting: No. Procedure completed. Patient transferred by wheelchair to CPRU. Access Site Site: Right Radial artery Sheath Size: 6 Fr Hemostasis Method: TR Band Hemostasis Success: Successful Procedure Medications Start: 8:18 AM Stop: 8:18 AM Medication: Versed Amount: 1 mg Route: I.V. Start: 8:19 AM Stop: 8:19 AM Medication: Fentanyl Amount: 50 mcg Route: I.V. Start: 8:30 AM Stop: 8:30 AM Medication: Nitrogylcerin Amount: 100 mcg Route: S.Q. Start: 8:35 AM Stop: 8:35 AM Medication: Nitrogylcerin Amount: 200 mcg Route: I.A. Start: 8:36 AM Stop: 8:36 AM Medication: Versed Amount: 1 mg Route: I.V. Start: 8:36 AM Stop: 8:36 AM Medication: Heparin Amount: 5000 units Route: I.V. I, the attending physician, have reviewed and verified all procedure medications. Yes, all medications given per verbal order History/Risk Factors Hypertension: Yes Dyslipidemia: Yes Peripheral Arterial Disease (PAD): Yes Myocardial Infarction (CO): No Obesity: Yes Renal Disease: No Tobacco Use: Never Prior Interventions PCI: No CABG: No Valve Surgery: No Report Signatures Finalized by Marylou Kent MD on 08/26/2024 05:56 PM
[2024-08-11 07:01] LABS: Anion Gap 16.2 (5-19); Blood Urea Nitrogen 16 mg/dL (8-23); Calcium 9.4 mg/dL (8.5-10.5); Carbon Dioxide 26 mmol/L (22-29); Chloride 105 mmol/L (98-107); Creatinine Clr Calc Pharmacy 94.2941; Glomerular Filtration Rate 85.1 mL/min (90-130); Glucose 109 mg/dL (65-115); Osmolality Calculated 298 mOsm/kg (285-295); Potassium 4.2 mmol/L (3.5-5.1); Sodium 143 mmol/L (136-145)
--- NOTE | 2024-08-11 08:20 | W.PM.OPSFHP ---
Same Day Surgery H&P Indication for Procedure/HPI DATE OF PROCEDURE: August 11, 2024 CHIEF COMPLAINT/INDICATIONFOR SURGICAL PROCEDURE: Chest pain/shortness of Abnormal stress test PREOP DIAGNOSIS: Abnormal stress test/chest pain PLANNED PROCEDURE: Left heart cath with indication of abnormal stress test Operation Date: 08/11/24 07:00 Proposed Procedures p Cardiac Catheterization - [facility] w/wo LV & Coros(Left) - Marylou Kent MD 63-year-old female past medical history significant for hypertension diabetes obesity history of smoking struggling with worsening of chest pain along with shortness of breath underwent stress test which was abnormal since patient continues to have symptoms she is here for left heart catheterization. Medications/Allergies* Home Medications ?Medication ?Instructions ?Recorded ?Confirmed ?Type cetirizine 10 mg tablet 10 mg PO DAILY 05/03/19 08/10/24 History aspirin 81 mg tablet,delayed 81 mg PO DAILY 08/01/19 08/10/24 History release cholecalciferol (vitamin D3) 25 25 mcg PO DAILY 01/18/20 08/10/24 History mcg (1,000 unit) tablet (Vitamin D3) fluticasone propionate 50 See Rx Instructions .Route .COMPLEX 01/18/20 08/11/24 History mcg/actuation nasal spray,suspension quigsdfdbdbb-Sm-wxbf-minerals 1 tab PO DAILY 01/18/20 08/11/24 History (Multiple Vitamin, Womens tablet) vitamin E 1 cap PO DAILY 01/18/20 08/10/24 History paroxetine HCl 40 mg tablet 40 mg PO DAILY 05/12/23 08/10/24 History Allergies/Adverse Reactions Allergy/AdvReac Type Severity Reaction Status Date / Time hydrochlorothiazide Allergy ADR-Itching Verified 08/11/24 06:59 Current Medications: Generic Name Dose Route Start Last Admin Trade Name Freq PRN Reason Stop Dose Admin Sodium Chloride 1,000 mls @ 50 mls/hr 08/11/24 06:00 08/11/24 06:58 Sodium Chloride 0.9% IV 08/12/24 01:59 Not Given .Q20H ONE Pertinent History/Comorbid Conditions* Medical History (Updated 07/27/24 @ 11:57 by Marylou Kent MD) Allergic bronchitis Insomnia Right carpal tunnel syndrome Carpal tunnel syndrome of left wrist Allergy-induced asthma Psychiatric care Obesity, morbid, BMI 40.0-49.9 Urolithiasis Multistone Former. 13mm LEFT UPJ stone cleared with ESWL in 2018 2.5 mm RIGHT UVJ stone spontaneously passed 2020 Dietary stone risk reduction strategies employed Renal calculi History of a large stone requiring ESWL but with complete resolution eventually. Encourage dietary modification for stone risk reduction. Atrophy of vulva History of kidney stones GERD (gastroesophageal reflux disease) Insomnia Osteoarthritis Hyperlipidemia Hypertension Major depressive disorder, recurrent, moderate Surgical History (Updated 11/19/23 @ 10:28 by JACKIE Olmstead) History of esophagogastroduodenoscopy (EGD) History of colonoscopy October, at [facility] no record but her personal history History of tonsillectomy 05/08/2021 History of lithotripsy H/O repair of right rotator cuff History of tubal ligation H/O repair of left rotator cuff H/O lateral meniscus repair of right knee History of partial hysterectomy without BSO History of left breast biopsy History of cholecystectomy October 22, 2023 results in chart Family History (Updated 08/01/19 @ 13:04 by Anne Marie Edwards LPN) Father, AT AGE 54 Rheumatoid arthritis Diabetes Osteoporosis CAD (coronary artery disease) Heart disease Father Osteoarthritis Mother Cancer Hypertension Denies family history of Stroke Social History Smoking and tobacco/nicotine status: never used tobacco/nicotine Second hand smoke exposure: No Alcohol intake: never Substance/Drug Use: never Adopted: No Caregiver/support person: No Lives independently: Yes Household members: spouse Housing: House Marital status: service: No Current occupational status: disabled Do you think of yourself as: Straight/Heterosexual Current gender identity: Female Pertinent Exam Findings alert, oriented x 3, clear to auscultation bilaterally, regular rate & rhythm and operative site marked Conscious Sedation Assessment PATIENT ASSESSED PRIOR TO SEDATION, WITH NO CHANGE NOTED: Yes AIRWAY EVAL/ANESTHESIA PLAN: ASA II, Risks, benefits & alternatives of sedation and/or procedure discussed and Patient agrees to continue as planned Recommendations Surgery/Procedure today Other Plans: Patient has been explained all risk-benefit and alternative for the procedure. Patient understand 2% risk of stroke major bleed, patient understand 5% risk of pseudoaneurysm hematoma bruising contrast induced nephropathy urgent emergent vascular or bypass surgery. Patient would like to proceed with it Coding Level of Care Code Acute Code for Chg Fwd
--- NOTE | 2024-08-11 09:00 | SUR.PHASEII ---
post cath fluids IV 0.9% NS at 100 ml/hr. Per verbal order from DR Kent
--- NOTE | 2024-08-11 09:00 | SUR.PHASEII ---
POST CATH NOTE Received patient from Master Technician. Status post cardiac catheterization via the right radial approach. TR Band in place to the right radial artery. Site is hemostatic and free of s/s of hematoma or bleed. Verbal post cath instuctions went over with the patient and family. They understood the instructions well. Call light within reach. Vitals and assessments per flowsheet. Informed to call for needs.
== END 2024-08-11 11:53 | disposition home or self-care (01) ==
PROVIDERS: PCP Nurse Practitioner; Visit Provider Internal Medicine Cardiovascular Disease
DX: R07.9 Chest pain, unspecified (principal); I10 Essential (primary) hypertension; E11.9 Type 2 diabetes mellitus without complications; Z79.82 Long term (current) use of aspirin; E66.01 Morbid (severe) obesity due to excess calories; Z68.41 Body mass index [BMI] 40.0-44.9, adult; K21.9 Gastro-esophageal reflux disease without esophagitis; E78.5 Hyperlipidemia, unspecified; I73.9 Peripheral vascular disease, unspecified; Z82.49 Family history of ischemic heart disease and other diseases of the circulatory system; Z87.891 Personal history of nicotine dependence
CPT/HCPCS: 36415; 80048; 85025; 93458; 96374; 99152; 99153; C1769; C1887; C1894; J1644; J2250; J3010; J3490; J7030; J9999; Q0163; Q9967

== ENCOUNTER 2024-08-18 12:21 | Outpatient (CLI) | payer MEDICARE, SELFPAY ==
--- NOTE | 2024-08-18 13:30 | USCV_ITS ---
Anjelica Neely Age: 63 Gender: F : 1960 Exam Date: 08/18/2024 13:23 Ordering Phys: Marylou Kent MD ([email or web address]) Technologist: BEKAH Exam Location: [facility] [place] Indication: SOB BP: 120 / 63 HR: 67 Rhythm: Sinus Technical Quality: Adequate MEASUREMENTS (Male / Female) Normal Values 2D ECHO LV Diastolic Diameter PLAX 5.3 cm 4.2 - 5.9 / 3.9 - 5.3 cm IVS Diastolic Thickness 0.9 cm 0.6 - 1.0 / 0.6 - 0.9 cm IVS Systolic Thickness 1.2 cm LVPW Diastolic Thickness 0.9 cm 0.6 - 1.0 / 0.6 - 0.9 cm LVPW Systolic Thickness 1.0 cm LVOT Diameter 2.0 cm LV Ejection Fraction 2D Teich 63.6 % LV Ejection Fraction MOD 4C 68.6 % LV Ejection Fraction MOD 2C 63.1 % LV Ejection Fraction 2C AL 66.7 % LA Diameter 3.3 cm RA Systolic Volume 4C AL 18.9 ml RA Systolic Volume 4C MOD 18.4 ml LA Sys Volume AL 46.7 cm cubed LA Sys Volume Index AL 21.7 cm cubed/m squared Aorta at Sinotubular Diameter 2.5 cm IVC Diameter 1.4 cm M-MODE LA Ao Ratio MM 1.6 AV Cusp Separation MM 1.3 cm DOPPLER AV Peak Velocity 130.0 cm/s LVOT Peak Velocity 92.0 cm/s AV Area Cont Eq vti 2.7 cm squared AV Area Cont Eq pk 2.3 cm squared MV Peak Velocity 103.0 cm/s MV Area PHT 4.1 cm squared Mitral E to A Ratio 0.8 TR Peak Velocity 88.0 cm/s TR Peak Gradient 3.1 mmHg TV Peak E Velocity 69.0 cm/s PV Peak Velocity 75.0 cm/s FINDINGS Left Ventricle Normal left ventricular size and systolic function, EF 66%.no regional wall motion abnormalities. Grade I/IV diastolic dysfunction (abnormal relaxation filling pattern), normal to mildly elevated filling pressures. Right Ventricle Normal right ventricular size and systolic function. Right Atrium The right atrium is normal in size. Left Atrium Normal left atrial size. Mitral Valve Thickened mitral valve. Moderate mitral annular calcification. Aortic Valve Thickened aortic valve. Tricuspid Valve No gross abnormalities noted Pulmonic Valve Mild pulmonary valve regurgitation. Pericardium Normal pericardium without effusion. Aorta Normal ascending aorta dimension. IVC Normal IVC dimension with <50% respiratory change of the inferior vena cava. CONCLUSIONS Normal left ventricular size and systolic function, EF 66%.no regional wall motion abnormalities. Grade I/IV diastolic dysfunction (abnormal relaxation filling pattern), normal to mildly elevated filling pressures. Thickened mitral valve. Moderate mitral annular calcification. Thickened aortic valve. Mild pulmonary valve regurgitation. There is no pericardial effusion. There are no intracardiac masses. Estimated RA pressure of 10 mmHg Compared to the study from 08/12/2019, there may not be a significant change Dr Jose Guillen MD FACC (Electronically Signed) Final Date: 19 August 2024 16:30 S
== END 2024-08-18 12:22 | disposition home or self-care (01) ==
PROVIDERS: PCP Nurse Practitioner; Visit Provider Internal Medicine Cardiovascular Disease
DX: R06.02 Shortness of breath (principal); R93.1 Abnormal findings on diagnostic imaging of heart and coronary circulation; I51.7 Cardiomegaly; I34.81 Nonrheumatic mitral (valve) annulus calcification; I35.8 Other nonrheumatic aortic valve disorders; I37.1 Nonrheumatic pulmonary valve insufficiency
CPT/HCPCS: 93306

== ENCOUNTER → 2024-08-22 11:43 | Outpatient (BNVA) | payer MEDICARE, SELFPAY | PROVIDERS: PCP Nurse Practitioner; Referring Provider Nurse Practitioner; Visit Provider Student in an Organized Health Care Education/Training Program | DX: K57.92 Diverticulitis of intestine, part unspecified, without perforation or abscess without bleeding (principal) | CPT/HCPCS: 99204 ==

== ENCOUNTER → 2024-09-21 07:45 | Outpatient (BNVA) | payer MEDICARE, SELFPAY | PROVIDERS: PCP Nurse Practitioner; Visit Provider Physician Assistant | DX: M70.62 Trochanteric bursitis, left hip (principal); Z71.89 Other specified counseling | CPT/HCPCS: 20610; 99213; J3301; J3490; J9999 ==

== ENCOUNTER 2024-10-11 10:50 | Day surgery (SDC) | payer MEDICARE, SELFPAY ==
[2024-10-11 11:11] VITALS: BP 136/72; PULSE 70; RESP 18; TEMP 36.2; O2SAT 99; BMI 41.5
[2024-10-11] MEDS: sodium chloride 0.9% 1,000 ML 15 ML IV (11:23)
[2024-10-11 11:26] LABS: Glucose Point of Care 94 mg/dL (70-110)
--- NOTE | 2024-10-11 11:35 | W.PM.OPSFHP ---
Same Day Surgery H&P Indication for Procedure/HPI DATE OF PROCEDURE: October 11, 2024 CHIEF COMPLAINT/INDICATIONFOR SURGICAL PROCEDURE: diverticulitis PREOP DIAGNOSIS: diverticulitis PLANNED PROCEDURE: Operation Date: 10/11/24 12:15 Proposed Procedures p Colonoscopy 17739 G0105, K57.92(Not Applicable) - Fabiano Reyes MD Medications/Allergies* Home Medications ?Medication ?Instructions ?Recorded ?Confirmed ?Type cetirizine 10 mg tablet 10 mg PO DAILY 05/03/19 10/06/24 History aspirin 81 mg tablet,delayed 81 mg PO DAILY 08/01/19 10/06/24 History release cholecalciferol (vitamin D3) 25 25 mcg PO DAILY 01/18/20 10/06/24 History mcg (1,000 unit) tablet (Vitamin D3) fluticasone propionate 50 2 spray intranasal DAILY 01/18/20 10/06/24 History mcg/actuation nasal spray,suspension bwjjqjqhdibd-Jf-unac-minerals 1 tab PO DAILY 01/18/20 10/06/24 History (Multiple Vitamin, Womens tablet) vitamin E 1 cap PO DAILY 01/18/20 10/06/24 History paroxetine HCl 40 mg tablet 40 mg PO DAILY 05/12/23 10/06/24 History Allergies/Adverse Reactions Allergy/AdvReac Type Severity Reaction Status Date / Time hydrochlorothiazide Allergy ADR-Itching Verified 10/06/24 10:50 Current Medications: Generic Name Dose Route Start Last Admin Trade Name Freq PRN Reason Stop Dose Admin Sodium Chloride 1,000 mls @ 15 mls/hr 10/11/24 11:10 10/11/24 11:23 Sodium Chloride 0.9% IV 10/12/24 11:09 15 mls/hr .Q24H PRN Administration COLONOSCOPY FLUIDS Pertinent History/Comorbid Conditions* Medical History (Updated 08/14/24 @ 22:33 by JACKIE Olmstead) Allergic bronchitis Insomnia Right carpal tunnel syndrome Carpal tunnel syndrome of left wrist Allergy-induced asthma Psychiatric care Obesity, morbid, BMI 40.0-49.9 Urolithiasis Multistone Former. 13mm LEFT UPJ stone cleared with ESWL in 2018 2.5 mm RIGHT UVJ stone spontaneously passed 2020 Dietary stone risk reduction strategies employed Renal calculi History of a large stone requiring ESWL but with complete resolution eventually. Encourage dietary modification for stone risk reduction. Atrophy of vulva History of kidney stones GERD (gastroesophageal reflux disease) Insomnia Osteoarthritis Hyperlipidemia Hypertension Major depressive disorder, recurrent, moderate Surgical History (Updated 11/19/23 @ 10:28 by JACKIE Olmstead) History of esophagogastroduodenoscopy (EGD) History of colonoscopy October, at [place] no record but her personal history History of tonsillectomy 05/08/2021 History of lithotripsy H/O repair of right rotator cuff History of tubal ligation H/O repair of left rotator cuff H/O lateral meniscus repair of right knee History of partial hysterectomy without BSO History of left breast biopsy History of cholecystectomy October 22, 2023 results in chart Family History (Updated 08/01/19 @ 13:04 by Anne Marie Edwards LPN) Father, AT AGE 54 Rheumatoid arthritis Diabetes Osteoporosis CAD (coronary artery disease) Heart disease Father Osteoarthritis Mother Cancer Hypertension Denies family history of Stroke Social History Smoking and tobacco/nicotine status: never used tobacco/nicotine Second hand smoke exposure: No Alcohol intake: never Substance/Drug Use: never Adopted: No Caregiver/support person: No Lives independently: Yes Household members: spouse Housing: House Marital status: service: No Current occupational status: disabled Do you think of yourself as: Straight/Heterosexual Current gender identity: Female Pertinent Exam Findings alert, oriented x 3, clear to auscultation bilaterally, regular rate & rhythm and procedure specific exam findings abdomen soft, nt, nd Recommendations Risks and benefits of procedure reviewed and Patient/family agree to proceed Surgery/Procedure today Coding Level of Care Code Acute Code for Chg Fwd
--- NOTE | 2024-10-11 11:38 | ANES.PREANE2 ---
Pre-Anesthetic Assessment Height/Weight: Height 1.55 m Weight 99.79 kg Temp Pulse Resp BP Pulse Ox O2 Del Method 97.1 F L 70 18 136/72 99 Room Air 10/11/24 11:11 10/11/24 11:11 10/11/24 11:11 10/11/24 11:11 10/11/24 11:11 10/11/24 11:11 Preop Diagnosis: diverticulitis Operation Date: 10/11/24 12:15 Proposed Procedures p Colonoscopy [id number] G0105, K57.92(Not Applicable) - Fabiano Reyes MD Familial anesthetic complications: none Was Beta Max taken within 24 hours: N/A Was Clonidine taken within 24 hours: N/A Last intake: Intake Last Liquid Date 10/10/24 Last Liquid Time 23:30 Last Solid Date 10/10/24 Last Solid Time 08:00 Social No alcohol and No tobacco Exam alert, oriented x 3, clear to auscultation bilaterally and regular rate & rhythm Airway Cervical ROM: within normal limits Mallampati: Class II Dentition: full Pulmonary None reported CV/HEM Hypertension None reported Hepatic None reported GI Gastroesophageal Reflux Disease Metabolic Diabetes Mellitus, Hyperlipidemia and Morbid Obesity [facility] None reported Neuropsych None reported Anesthetic Plan ASA status: 3 Anesthesia: MAC Risk of > 500 ml blood loss (7ml/kg in children): No Medications/Allergies Home Medications ?Medication ?Instructions ?Recorded ?Confirmed ?Last Taken ?Type cetirizine 10 mg tablet 10 mg PO DAILY 05/03/19 10/06/24 10/09/24 History aspirin 81 mg tablet,delayed 81 mg PO DAILY 08/01/19 10/06/24 10/09/24 History release cholecalciferol (vitamin D3) 25 25 mcg PO DAILY 01/18/20 10/06/24 10/09/24 History mcg (1,000 unit) tablet (Vitamin D3) fluticasone propionate 50 2 spray intranasal DAILY 01/18/20 10/06/24 10/09/24 History mcg/actuation nasal spray,suspension vgqiqtpadpja-Kx-pwbq-minerals 1 tab PO DAILY 01/18/20 10/06/24 10/09/24 History (Multiple Vitamin, Womens tablet) vitamin E 1 cap PO DAILY 01/18/20 10/06/24 10/09/24 History nitroglycerin 0.4 mg sublingual 0.4 mg sublingual Q5M PRN chest 02/02/20 10/06/24 Unknown Rx tablet pain #25 tabs paroxetine HCl 40 mg tablet 40 mg PO DAILY 05/12/23 10/06/24 10/09/24 History epinephrine 0.3 mg/0.3 mL 0.3 mg (0.3 mL) IM Q10M PRN 07/23/23 10/06/24 Unknown Rx injection syringe anaphylaxis #2 ea albuterol sulfate 90 mcg/actuation 1 inh inhalation QID PRN shortness 07/30/23 10/11/24 5 Days Ago Rx aerosol inhaler of breath or wheezing #8.5 grams ~10/06/24 albuterol sulfate 2.5 mg/3 mL 2.5 mg (3 mL) inhalation QID PRN 08/03/23 10/11/24 3 Months Ago Rx (0.083 %) solution for nebulization shortness of breath or wheezing ~07/11/24 #75 mL budesonide 0.5 mg/2 mL suspension 0.5 mg (2 mL) inhalation BID #120 08/03/23 10/06/24 10/09/24 Rx for nebulization (Pulmicort) mL ASO Brace #1 ea 10/12/23 10/04/24 Unknown Rx metformin 500 mg tablet,extended 1,000 mg (2 x 500 mg) PO QDAY #180 07/11/24 10/06/24 10/09/24 Rx release 24hr (osmotic) tabs acarbose 100 mg tablet 100 mg PO TID #270 tabs 08/24/24 10/06/24 10/09/24 Rx budesonide-formoterol HFA 160 2 puff inhalation Q12H #10.2 grams 08/24/24 10/06/24 10/09/24 Rx mcg-4.5 mcg/actuation aerosol inhaler (Symbicort) famotidine 40 mg tablet (Pepcid) 40 mg PO DAILY #90 tabs 08/24/24 10/06/24 10/09/24 Rx furosemide 20 mg tablet (Lasix) 20 mg PO QAM #90 tabs 08/24/24 10/06/24 10/09/24 Rx meloxicam 15 mg tablet 15 mg PO DAILY #90 tabs 0410/06/24 10/09/24 Rx montelukast 10 mg tablet 10 mg PO DAILY #90 tabs 08/24/24 10/06/24 10/09/24 Rx (Singulair) valsartan 320 mg tablet (Diovan) 320 mg PO DAILY #90 tabs 08/24/24 10/06/24 10/09/24 Rx zonisamide 50 mg capsule 50 mg PO BID #180 caps 08/24/24 10/06/24 10/09/24 Rx hydroxyzine pamoate 25 mg capsule 25 mg PO Q6H PRN anxiety #270 caps 08/26/24 10/06/24 10/09/24 Rx diltiazem HCl 60 mg tablet 60 mg PO .every 12 hours #180 tabs 09/07/24 10/06/24 10/09/24 Rx atorvastatin 20 mg tablet (Lipitor) 20 mg PO DAILY #90 tabs 10/07/24 10/11/24 10/09/24 Rx pantoprazole 20 mg tablet,delayed 20 mg PO DAILY #90 tabs 10/07/24 10/11/24 10/09/24 Rx release (Protonix) Allergies Allergy/AdvReac Type Severity Reaction Status Date / Time hydrochlorothiazide Allergy ADR-Itching Verified 10/06/24 10:50 Current Medications Generic Name Dose Route Start Last Admin Trade Name Freq PRN Reason Stop Dose Admin Sodium Chloride 1,000 mls @ 15 mls/hr 10/11/24 11:10 10/11/24 11:23 Sodium Chloride 0.9% IV 10/12/24 11:09 15 mls/hr .Q24H PRN Administration COLONOSCOPY FLUIDS PFSH Anesthesia Medical History Allergic bronchitis Insomnia Right carpal tunnel syndrome Carpal tunnel syndrome of left wrist Allergy-induced asthma Psychiatric care Obesity, morbid, BMI 40.0-49.9 Urolithiasis Multistone Former. 13mm LEFT UPJ stone cleared with ESWL in 2018 2.5 mm RIGHT UVJ stone spontaneously passed 2020 Dietary stone risk reduction strategies employed Renal calculi History of a large stone requiring ESWL but with complete resolution eventually. Encourage dietary modification for stone risk reduction. Atrophy of vulva History of kidney stones GERD (gastroesophageal reflux disease) Insomnia Osteoarthritis Hyperlipidemia Hypertension Major depressive disorder, recurrent, moderate Surgical History History of esophagogastroduodenoscopy (EGD) History of colonoscopy October, at [facility] [place] no record but her personal history History of tonsillectomy 05/08/2021 History of lithotripsy H/O repair of right rotator cuff History of tubal ligation H/O repair of left rotator cuff H/O lateral meniscus repair of right knee History of partial hysterectomy without BSO History of left breast biopsy History of cholecystectomy October 22, 2023 results in chart Family History Father , AT AGE 54 Heart disease Mother Osteoarthritis Other CAD (coronary artery disease) Cancer Diabetes Hypertension Osteoporosis Rheumatoid arthritis Denies family history of Stroke Social History Smoking and tobacco/nicotine status: never used tobacco/nicotine Second hand smoke exposure: No Alcohol intake: never Substance/Drug Use: never Adopted: No Caregiver/support person: No Lives independently: Yes Household members: spouse Housing: House Marital status: service: No Current occupational status: disabled Do you think of yourself as: Straight/Heterosexual Current gender identity: Female Data Anesthesia Cardiac Studies: Echocardiogram 08/18/24 Echocardiogram Ultrasound 08/12/19 Sestamibi Stress Test (Cardiology) 07/18/24
[2024-10-11 11:44] VITALS: BP 127/56; PULSE 63; RESP 17; TEMP 36.2; O2SAT 96
[2024-10-11 11:52] VITALS: BP 129/71; PULSE 64; RESP 18; O2SAT 95
--- NOTE | 2024-10-11 12:15 | ANE.PACU2 ---
Inpatient post-anesthesia follow up: Airway intact: Yes Vital signs: Temperature 97.2 F Pulse Rate 64 Respiratory Rate 18 Blood Pressure 129/71 Pulse Oximetry 95 Oxygen Delivery Me thod Room Air Oxygen Flow Rate Fraction of Inspir ed Oxygen Hydration adequate: Yes Nausea and vomiting: No Pain level: 1 Mental status: Baseline
== END 2024-10-11 12:15 | disposition home or self-care (01) ==
PROVIDERS: PCP Nurse Practitioner; Visit Provider Student in an Organized Health Care Education/Training Program
PROC: 0DJD8ZZ Inspection of Lower Intestinal Tract, Via Natural or Artificial Opening Endoscopic (ICD-10-PCS; CPT 45378; principal; 2024-10-11 12:15)
DX: Z13.811 Encounter for screening for lower gastrointestinal disorder (principal); I10 Essential (primary) hypertension; K21.9 Gastro-esophageal reflux disease without esophagitis; E78.5 Hyperlipidemia, unspecified; E66.01 Morbid (severe) obesity due to excess calories; Z68.41 Body mass index [BMI] 40.0-44.9, adult; Z79.899 Other long term (current) drug therapy; Z79.84 Long term (current) use of oral hypoglycemic drugs; Z79.82 Long term (current) use of aspirin; Z90.49 Acquired absence of other specified parts of digestive tract; Z53.8 Procedure and treatment not carried out for other reasons
CPT/HCPCS: 36416; 45378; 82962; J2704; J7030

== ENCOUNTER → 2024-10-12 10:04 | Outpatient (BNVA) | payer MEDICARE, SELFPAY | PROVIDERS: PCP Nurse Practitioner; Visit Provider Physician Assistant | DX: M17.0 Bilateral primary osteoarthritis of knee (principal) | CPT/HCPCS: 20610; 99213; J3301; J9999 ==

== ENCOUNTER → 2024-11-30 15:00 | Outpatient (BNVA) | payer MEDICARE, SELFPAY | PROVIDERS: PCP Nurse Practitioner; Visit Provider Nurse Practitioner | DX: E55.9 Vitamin D deficiency, unspecified (principal); I10 Essential (primary) hypertension | CPT/HCPCS: 80053; 82607; 85025 ==

== ENCOUNTER → 2024-12-20 09:15 | Outpatient (BNVA) | payer MEDICARE, SELFPAY | PROVIDERS: PCP Nurse Practitioner; Visit Provider Internal Medicine Cardiovascular Disease | DX: R07.89 Other chest pain (principal); R94.39 Abnormal result of other cardiovascular function study; I10 Essential (primary) hypertension; R00.2 Palpitations; I83.93 Asymptomatic varicose veins of bilateral lower extremities; Z79.82 Long term (current) use of aspirin | CPT/HCPCS: 99214 ==

== ENCOUNTER → 2024-12-27 13:03 | Outpatient (BNVA) | payer MEDICARE, SELFPAY | PROVIDERS: PCP Nurse Practitioner; Visit Provider Student in an Organized Health Care Education/Training Program | DX: M70.62 Trochanteric bursitis, left hip (principal); Z71.89 Other specified counseling | CPT/HCPCS: 20610; 99213; J3301; J3490; J9999 ==

== ENCOUNTER → 2025-01-17 10:26 | Outpatient (BNVA) | payer MEDICARE, SELFPAY | PROVIDERS: PCP Nurse Practitioner; Visit Provider Student in an Organized Health Care Education/Training Program | DX: M17.0 Bilateral primary osteoarthritis of knee (principal); Z71.89 Other specified counseling | CPT/HCPCS: 20610; 99213; J3301; J9999 ==

== ENCOUNTER 2025-04-18 08:52 | Outpatient (CLI) | payer MEDICARE, SELFPAY ==
--- NOTE | 2025-04-18 09:00 | MM_ITS ---
WS: [id number] DIAGNOSTIC BILATERAL DIGITAL BREAST TOMOSYNTHESIS MAMMOGRAPHY WITH CAD HISTORY: N64.4 - Mastodynia, palpable area RIGHT lateral chest wall. COMPARISON: 01/12/2024, 01/02/2023, 12/25/2021 TECHNIQUE: Bilateral craniocaudad, mediolateral oblique, and mediolateral views are submitted with tomosynthesis and SM. Computer aided detection utilized. Breast composition: There are scattered areas of fibroglandular density. Architectural distortion in the lateral LEFT breast corresponds to the prior surgical site. There are benign vascular calcifications in each breast. Stable asymmetries. No nipple retraction. Ultrasound to follow the palpable area which could not be included in the mammographic field. Limited RIGHT breast ultrasound. Mass with decreased echogenicity and no through transmission is identified in the RIGHT axilla. This corresponds to the palpable mass. This mass is well- circumscribed measuring 0.9 x 0.8 x 0.9 cm. No increased vascularity. MM/MM diag BI tomosynthesis [id number] IMPRESSION: BI-RADS: 2 - Benign. FOLLOW UP: 1 Year Follow-up Palpable area in the RIGHT axilla is most consistent with an epidermoid cyst.
--- NOTE | 2025-04-18 09:30 | US_ITS ---
WS: [id number] DIAGNOSTIC BILATERAL DIGITAL BREAST TOMOSYNTHESIS MAMMOGRAPHY WITH CAD HISTORY: N64.4 - Mastodynia, palpable area RIGHT lateral chest wall. COMPARISON: 01/12/2024, 01/02/2023, 12/25/2021 TECHNIQUE: Bilateral craniocaudad, mediolateral oblique, and mediolateral views are submitted with tomosynthesis and SM. Computer aided detection utilized. Breast composition: There are scattered areas of fibroglandular density. Architectural distortion in the lateral LEFT breast corresponds to the prior surgical site. There are benign vascular calcifications in each breast. Stable asymmetries. No nipple retraction. Ultrasound to follow the palpable area which could not be included in the mammographic field. Limited RIGHT breast ultrasound. Mass with decreased echogenicity and no through transmission is identified in the RIGHT axilla. This corresponds to the palpable mass. This mass is well- circumscribed measuring 0.9 x 0.8 x 0.9 cm. No increased vascularity. US/US breast RT limited* [id number] IMPRESSION: BI-RADS: 2 - Benign. FOLLOW UP: 1 Year Follow-up Palpable area in the RIGHT axilla is most consistent with an epidermoid cyst.
== END 2025-04-18 08:53 | disposition home or self-care (01) ==
LOC: RAD 08:55
PROVIDERS: PCP Nurse Practitioner; Visit Provider Nurse Practitioner
DX: N64.4 Mastodynia (principal); R92.321 Mammographic fibroglandular density, right breast; N63.10 Unspecified lump in the right breast, unspecified quadrant
CPT/HCPCS: 76642; 77062; G0279

== ENCOUNTER → 2025-04-19 08:51 | Outpatient (BNVA) | payer MEDICARE, SELFPAY | PROVIDERS: PCP Nurse Practitioner; Visit Provider Student in an Organized Health Care Education/Training Program | DX: M17.0 Bilateral primary osteoarthritis of knee (principal); Z71.89 Other specified counseling | CPT/HCPCS: 20610; 99213; J3301; J9999 ==

== ENCOUNTER 2025-04-23 20:10 | Outpatient (CLI) | payer MEDICARE, SELFPAY | END 2025-04-23 20:11 | disposition home or self-care (01) | LOC: SLEEP 20:12 | PROVIDERS: PCP Nurse Practitioner; Referring Provider Nurse Practitioner; Visit Provider Internal Medicine Pulmonary Disease | DX: G47.10 Hypersomnia, unspecified (principal) | CPT/HCPCS: 95810 ==